=== PATIENT | female | born 1945 | race Caucasian/White ===

== ENCOUNTER → 2016-09-19 | Outpatient (CLI) | payer MEDICARE ==
--- NOTE | 2016-09-19 14:57 | REPMRS ---
Patient History The patient states she had a clinical breast exam in Patient is postmenopausal. Family history of ovarian cancer in paternal grandmother. Digital Woman Screen Mammo: September 19, 2016 - Exam #: [id number] Bilateral CC and MLO view(s) were taken. Technologist: Maida Bowen, Technologist Prior study comparison: May 11, 2013, digital bilateral screening mammo, performed at [facility] [employer] [facility]. May 29, 2011, digital bilateral screening mammo, performed at [facility] [employer] [facility]. November 13, 2009, digital bilateral screening mammo, performed at [facility]. FINDINGS: There are scattered fibroglandular densities. There has been no change in the appearance of the mammogram from the prior studies. There is a mild amount of scattered fibroglandular density which is fairly symmetric. There is no interval development of dominant mass, architectural distortion, or clustered microcalcification suggestive of malignancy. ASSESSMENT: BI-RADS/ACR category 1 mammogram. Negative. Recommendation Routine screening mammogram in 1 year (for women over age 40). This mammogram was interpreted with the aid of an FDA-approved computer-aided dectection system. Electronically Signed By: Shon Engle MD 09/19/16 [id number]
== END ==
LOC: M WHC 13:37
PROVIDERS: ATTEND Nurse Practitioner Women's Health
DX: Z12.31 Encounter for screening mammogram for malignant neoplasm of breast (principal); Z78.0 Asymptomatic menopausal state

== ENCOUNTER → 2016-12-18 | Outpatient (REF) | payer MEDICARE, OTHER ==
[2016-12-18 12:31] LABS: MEAN CORPUSCULAR HEMOGLOBIN 31.8 pg (27.0-33.0); MEAN CORPUSCULAR HGB CONC 32.8 g/dl (32.0-36.5); MEAN CORPUSCULAR VOLUME 96.9 fl (80.0-96.0); RED CELL DISTRIBUTION WIDTH 13.1 % (11.5-14.5); WHITE BLOOD COUNT 9.8 K/mm3 (4.0-10.0)
[2016-12-18 13:05] LABS: ALBUMIN 3.4 GM/DL (3.2-5.2); ALBUMIN/GLOBULIN RATIO 1.03 (1.00-1.93); ALKALINE PHOSPHATASE 91 U/L (45-117); ALT/SGPT 30 U/L (12-78); ANION GAP 7 MEQ/L (8-16); AST/SGOT 20 U/L (15-37); BILIRUBIN,TOTAL 0.8 MG/DL (0.2-1.0); BLOOD UREA NITROGEN 18 MG/DL (7-18); CARBON DIOXIDE LEVEL 29 MEQ/L (21-32); CHLORIDE LEVEL 107 MEQ/L (98-107); CHOLESTEROL LEVEL 186 MG/DL (<200); CREATININE FOR GFR 0.96 MG/DL (0.55-1.02); GLOMERULAR FILTRATION RATE > 60.0 (>39); GLUCOSE, FASTING 90 MG/DL (83-110); POTASSIUM SERUM 4.4 MEQ/L (3.5-5.1); SODIUM LEVEL 143 MEQ/L (136-145); TOTAL PROTEIN 6.7 GM/DL (6.4-8.2); TRIGLYCERIDES LEVEL 95 MG/DL (<150)
== END ==
LOC: M SFHCPLAZ 09:55
PROVIDERS: ATTEND Internal Medicine
DX: F34.1 Dysthymic disorder (principal); I10 Essential (primary) hypertension; E78.00 Pure hypercholesterolemia, unspecified; I48.0 Paroxysmal atrial fibrillation

== ENCOUNTER → 2017-04-13 | Outpatient (REF) | payer OTHER ==
[2017-04-13 21:50] LABS: CALCIUM LEVEL 9.4 MG/DL (8.8-10.2); CREATININE FOR GFR 1.3 MG/DL (0.55-1.02); MAGNESIUM LEVEL 2.3 MG/DL (1.8-2.4); POTASSIUM SERUM 4.6 MEQ/L (3.5-5.1)
== END ==
LOC: M SFHCADAM 15:01
PROVIDERS: ATTEND Internal Medicine
DX: I10 Essential (primary) hypertension (principal)

== ENCOUNTER → 2017-06-16 | Outpatient (REF) | payer OTHER ==
[2017-06-16 12:35] LABS: ALBUMIN 3.7 GM/DL (3.2-5.2); ALBUMIN/GLOBULIN RATIO 1.03 (1.00-1.93); BILIRUBIN,TOTAL 0.8 MG/DL (0.2-1.0); CALCIUM LEVEL 9.3 MG/DL (8.8-10.2); CREATININE FOR GFR 0.99 MG/DL (0.55-1.02); GLOMERULAR FILTRATION RATE 58.9 (>39); POTASSIUM SERUM 4.4 MEQ/L (3.5-5.1); TOTAL PROTEIN 7.3 GM/DL (6.4-8.2)
== END ==
LOC: M SFHCPLAZ 09:40
PROVIDERS: ATTEND Internal Medicine
DX: I10 Essential (primary) hypertension (principal); E78.00 Pure hypercholesterolemia, unspecified

== ENCOUNTER 2017-08-13 08:28 | Day surgery (SDC) | payer OTHER ==
[2017-08-13] MEDS: NS 1,000 ML IV (08:51)
[2017-08-13] MEDS ORDERED: LIDOCAINE 2% INJ 100 MG/5 ML SDV (FOR ANES.) As Ordered (10:12)
[2017-08-13] MEDS ORDERED: PROPOFOL 500 MG/50 ML VIAL As Ordered (10:12)
== END 2017-08-13 10:50 | disposition home or self-care (01) ==
LOC: M OPP 08:28
DX: Z12.11 Encounter for screening for malignant neoplasm of colon (principal); K64.8 Other hemorrhoids; R10.13 Epigastric pain; R12 Heartburn; I10 Essential (primary) hypertension; I25.10 Atherosclerotic heart disease of native coronary artery without angina pectoris; Z95.5 Presence of coronary angioplasty implant and graft; E78.5 Hyperlipidemia, unspecified; K21.9 Gastro-esophageal reflux disease without esophagitis; R06.02 Shortness of breath; F17.200 Nicotine dependence, unspecified, uncomplicated; Z79.82 Long term (current) use of aspirin; Z79.899 Other long term (current) drug therapy; Z80.41 Family history of malignant neoplasm of ovary; Z91.030 Bee allergy status
CPT/HCPCS: G0121

== ENCOUNTER → 2017-12-23 | Outpatient (REF) | payer OTHER ==
[2017-12-23 11:56] LABS: HEMATOCRIT 44.8 % (36.0-47.0); HEMOGLOBIN 14.7 g/dl (12.0-15.5); MEAN CORPUSCULAR HEMOGLOBIN 30.9 pg (27.0-33.0); MEAN CORPUSCULAR HGB CONC 32.8 g/dl (32.0-36.5); MEAN CORPUSCULAR VOLUME 94.3 fl (80.0-96.0); PLATELET COUNT, AUTOMATED 350 10^3/uL (150-450); RED BLOOD COUNT 4.75 10^6/uL (4.00-5.40); WHITE BLOOD COUNT 10.1 10^3/uL (4.0-10.0)
[2017-12-23 12:28] LABS: ALBUMIN 3.8 GM/DL (3.2-5.2); ALBUMIN/GLOBULIN RATIO 1.06 (1.00-1.93); ALKALINE PHOSPHATASE 101 U/L (45-117); ALT/SGPT 30 U/L (12-78); ANION GAP 7 MEQ/L (8-16); AST/SGOT 25 U/L (7-37); BILIRUBIN,TOTAL 0.7 MG/DL (0.2-1.0); BLOOD UREA NITROGEN 19 MG/DL (7-18); CALCIUM LEVEL 9.2 MG/DL (8.8-10.2); CARBON DIOXIDE LEVEL 26 MEQ/L (21-32); CHLORIDE LEVEL 109 MEQ/L (98-107); CHOLESTEROL LEVEL 117 MG/DL (<200); CHOLESTEROL RISK RATIO 2.489 (<5); CREATININE FOR GFR 0.97 MG/DL (0.55-1.30); GLOMERULAR FILTRATION RATE > 60.0 (>39); GLUCOSE, FASTING 97 MG/DL (70-100); HDL CHOLESTEROL 47 MG/DL (>40); LDL CHOLESTEROL 51.6 MG/DL (<100); MAGNESIUM LEVEL 2.4 MG/DL (1.8-2.4); NON-HDL-C 70 MG/DL; POTASSIUM SERUM 4.5 MEQ/L (3.5-5.1); SODIUM LEVEL 142 MEQ/L (136-145); TOTAL PROTEIN 7.4 GM/DL (6.4-8.2); TRIGLYCERIDES LEVEL 92 MG/DL (<150)
== END ==
LOC: M SFHCPLAZ 07:58
DX: F34.1 Dysthymic disorder (principal); I10 Essential (primary) hypertension; E78.00 Pure hypercholesterolemia, unspecified
CPT/HCPCS: 83735

== ENCOUNTER 2018-04-07 03:09 | Emergency (ER) | payer OTHER ==
[2018-04-07 03:44] LABS: BASO # 0.1 10^3/uL (0.0-0.2); BASO % 0.8 % (0.0-1.0); CALCIUM OXALATE CRYSTALS RFX LARGE; EOS # 0.5 10^3/uL (0.0-0.50); EOS % 3.1 % (0.0-3.0); HEMATOCRIT 44.2 % (36.0-47.0); HEMOGLOBIN 14.7 g/dl (12.0-15.5); IMMATURE GRANULOCYTE % 0.4 % (0-3.0); KETONE, URINE AUTO RFX NEGATIVE (NEGATIVE); LYMPH % 12.9 % (24.0-44.0); MEAN CORPUSCULAR HGB CONC 33.3 g/dl (32.0-36.5); MEAN CORPUSCULAR VOLUME 96.3 fl (80.0-96.0); MONO # 1.1 10^3/uL (0.0-0.8); MONO % 6.9 % (0.0-5.0); MUCUS, URINE RFX SMALL (NEGATIVE); NEUTROPHILS % 75.9 % (36.0-66.0); NITRITE, URINE AUTO RFX NEGATIVE (NEGATIVE); PLATELET COUNT, AUTOMATED 358 10^3/uL (150-450); RBC, URINE AUTO RFX 3 /HPF (0-3); RED BLOOD COUNT 4.59 10^6/uL (4.00-5.40); RED CELL DISTRIBUTION WIDTH 13.7 % (11.5-14.5); SPECIFIC GRAVITY UR AUTO RFX 1.016 (1.002-1.035); SQUAM EPITHELIAL CELL UR AURFX 3 /HPF (0-6); WHITE BLOOD COUNT 15.8 10^3/uL (4.0-10.0)
[2018-04-07 03:50] LABS: LEUKOCYTE ESTERASE UR AUTO RFX TRACE (NEGATIVE); WBC, URINE AUTO RFX 11 /HPF (0-3)
[2018-04-07] MEDS: ONDANSETRON 4MG/2ML VIAL (J2405) IV (03:54)
[2018-04-07] MEDS: MORPHINE 4 MG/ML 1ML VIAL/SYRINGE (J2270) IV (03:54)
[2018-04-07 04:07] LABS: ALBUMIN 3.6 GM/DL (3.2-5.2); ALBUMIN/GLOBULIN RATIO 0.97 (1.00-1.93); ALKALINE PHOSPHATASE 393 U/L (45-117); ALT/SGPT 67 U/L (12-78); ANION GAP 12 MEQ/L (8-16); AST/SGOT 77 U/L (7-37); BILIRUBIN,DIRECT 0.6 MG/DL (0.0-0.2); BLOOD UREA NITROGEN 19 MG/DL (7-18); CALCIUM LEVEL 9.2 MG/DL (8.8-10.2); CARBON DIOXIDE LEVEL 21 MEQ/L (21-32); CHLORIDE LEVEL 109 MEQ/L (98-107); GLOMERULAR FILTRATION RATE > 60.0 (>39); GLUCOSE, FASTING 168 MG/DL (70-100); LIPASE 79 U/L (73-393); POTASSIUM SERUM 4.2 MEQ/L (3.5-5.1); SODIUM LEVEL 142 MEQ/L (136-145); TOTAL PROTEIN 7.3 GM/DL (6.4-8.2)
[2018-04-07] MEDS: KETOROLAC 30 MG/ML VIAL (J1885) IV (05:09)
[2018-04-07] MEDS ORDERED: ISOVUE-370 76% 100ML VIAL (Q9967) As Ordered (05:23)
== END 2018-04-07 07:42 | disposition home or self-care (01) ==
LOC: M ED 03:09
DX: N20.1 Calculus of ureter (principal); I10 Essential (primary) hypertension; I25.10 Atherosclerotic heart disease of native coronary artery without angina pectoris; E78.5 Hyperlipidemia, unspecified; Z95.5 Presence of coronary angioplasty implant and graft; Z79.899 Other long term (current) drug therapy; Z79.82 Long term (current) use of aspirin; Z88.8 Allergy status to other drugs, medicaments and biological substances; Z91.030 Bee allergy status; F17.210 Nicotine dependence, cigarettes, uncomplicated
CPT/HCPCS: J2270

== ENCOUNTER → 2018-04-08 | Outpatient (REF) | payer OTHER ==
[2018-04-16 14:19] LABS: Ca Ox Monohydrate 93 % (.); Size 4x4x3 mm (.)
== END ==
LOC: M SMT 17:09
DX: N20.0 Calculus of kidney (principal)
CPT/HCPCS: 82360

== ENCOUNTER → 2018-04-09 | Outpatient (REF) | payer OTHER ==
[2018-04-09 15:01] LABS: HEMATOCRIT 42.5 % (36.0-47.0); HEMOGLOBIN 13.8 g/dl (12.0-15.5); MEAN CORPUSCULAR HGB CONC 32.5 g/dl (32.0-36.5); MEAN CORPUSCULAR VOLUME 98.6 fl (80.0-96.0); PLATELET COUNT, AUTOMATED 343 10^3/uL (150-450); RED BLOOD COUNT 4.31 10^6/uL (4.00-5.40); RED CELL DISTRIBUTION WIDTH 13.7 % (11.5-14.5); WHITE BLOOD COUNT 10.4 10^3/uL (4.0-10.0)
[2018-04-09 15:11] LABS: INR 1.09; PROTHROMBIN TIME 14.2 SECONDS (12.1-14.4)
[2018-04-09 15:12] LABS: PARTIAL THROMBOPLASTIN TIME 33.8 SECONDS (25.4-37.6)
== END ==
LOC: M LABSMT 13:36 → M LABDRWAD 13:41
DX: Z01.818 Encounter for other preprocedural examination (principal); N20.0 Calculus of kidney

== ENCOUNTER → 2018-04-09 | Outpatient (CLI) | payer OTHER | LOC: M ADAMS 13:36 | DX: Z01.818 Encounter for other preprocedural examination (principal); N20.0 Calculus of kidney | CPT/HCPCS: 85610 ==

== ENCOUNTER 2018-04-15 06:56 | Day surgery (SDC) | payer OTHER ==
[2018-04-15] MEDS ORDERED: fentaNYL 100 MCG/2 ML INJECTION (J3010) As Ordered ×2 (09:41→11:42)
[2018-04-15] MEDS ORDERED: MIDAZOLAM INJ 2 MG/2 ML VIAL (J2250) As Ordered (09:41)
[2018-04-15] MEDS ORDERED: ONDANSETRON 4MG/2ML VIAL (J2405) As Ordered (09:43)
[2018-04-15] MEDS ORDERED: PROPOFOL 200 MG/20 ML VIAL As Ordered (09:43)
[2018-04-15] MEDS ORDERED: LIDOCAINE 2% INJ 100 MG/5 ML SDV (FOR ANES.) As Ordered (09:43)
[2018-04-15] MEDS ORDERED: dexameTHASONE 4 MG/ML 1ML VIAL (J1100) As Ordered (09:43)
[2018-04-15] MEDS: CONRAY-60 60% 50ML VIAL (Q9961) As Ordered (10:14)
[2018-04-15] MEDS ORDERED: KETOROLAC 60 MG/2 ML VIAL (J1885) As Ordered (10:27)
[2018-04-15] MEDS ORDERED: PERCOCET 5MG/325MG TAB As Ordered (11:42)
[2018-04-15] MEDS: fentaNYL 100 MCG/2 ML INJECTION (J3010) IV ×2 (11:44→11:51)
[2018-04-15] MEDS: PERCOCET 5MG/325MG TAB PO ×2 (11:44→12:16)
[2018-04-15] MEDS ORDERED: LR 1,000 ML IV (11:45)
[2018-04-15] MEDS: oxyBUTYnin 5 MG TAB PO (11:50)
[2018-04-15] MEDS ORDERED: PERCOCET 5MG/325MG TAB PO ×2 (12:00)
[2018-04-15] MEDS: ONDANSETRON 4MG/2ML VIAL (J2405) IV (12:44)
== END 2018-04-15 13:50 | disposition home or self-care (01) ==
LOC: M SDC 06:56
DX: N20.0 Calculus of kidney (principal); I48.91 Unspecified atrial fibrillation; I25.10 Atherosclerotic heart disease of native coronary artery without angina pectoris; I50.9 Heart failure, unspecified; I11.0 Hypertensive heart disease with heart failure; E78.00 Pure hypercholesterolemia, unspecified; Z88.8 Allergy status to other drugs, medicaments and biological substances; Z91.030 Bee allergy status; Z79.899 Other long term (current) drug therapy; Z78.0 Asymptomatic menopausal state; Z72.0 Tobacco use; Z95.5 Presence of coronary angioplasty implant and graft
CPT/HCPCS: 52356

== ENCOUNTER 2018-05-05 20:04 | Emergency (ER) | payer OTHER ==
[2018-05-05 20:28] LABS: BASO # 0.1 10^3/uL (0.0-0.2); BASO % 1.2 % (0.0-1.0); EOS # 0.9 10^3/uL (0.0-0.50); EOS % 7.7 % (0.0-3.0); HEMATOCRIT 47.4 % (36.0-47.0); IMMATURE GRANULOCYTE % 0.2 % (0-3.0); MEAN CORPUSCULAR HEMOGLOBIN 32.6 pg (27.0-33.0); MEAN CORPUSCULAR HGB CONC 33.8 g/dl (32.0-36.5); MEAN CORPUSCULAR VOLUME 96.5 fl (80.0-96.0); MONO # 0.9 10^3/uL (0.0-0.8); MONO % 7.6 % (0.0-5.0); NEUTROPHILS # 6.6 10^3/uL (1.8-7.7); NEUTROPHILS % 57.3 % (36.0-66.0); PLATELET COUNT, AUTOMATED 358 10^3/uL (150-450); RED BLOOD COUNT 4.91 10^6/uL (4.00-5.40); RED CELL DISTRIBUTION WIDTH 12.8 % (11.5-14.5); WHITE BLOOD COUNT 11.6 10^3/uL (4.0-10.0)
[2018-05-05 20:45] LABS: ANION GAP 6 MEQ/L (8-16); BLOOD UREA NITROGEN 23 MG/DL (7-18); CALCIUM LEVEL 8.9 MG/DL (8.8-10.2); CARBON DIOXIDE LEVEL 29 MEQ/L (21-32); CHLORIDE LEVEL 105 MEQ/L (98-107); CREATININE FOR GFR 1.48 MG/DL (0.55-1.30); GLOMERULAR FILTRATION RATE 36.9 (>39); GLUCOSE, FASTING 109 MG/DL (70-100); POTASSIUM SERUM 3.8 MEQ/L (3.5-5.1); SODIUM LEVEL 140 MEQ/L (136-145)
[2018-05-05] MEDS: NORCO, ANEXSIA 5/325MG TABLET (HYDROcodone/ACETAMINOPHEN) PO ×2 (21:11)
[2018-05-05 21:12] LABS: AMORPHOUS SEDIMENT RFX SMALL (NEGATIVE); KETONE, URINE AUTO RFX NEGATIVE (NEGATIVE); MUCUS, URINE RFX SMALL (NEGATIVE); NITRITE, URINE AUTO RFX NEGATIVE (NEGATIVE); RBC, URINE AUTO RFX TNTC /HPF (0-3); SPECIFIC GRAVITY UR AUTO RFX 1.024 (1.002-1.035); SQUAM EPITHELIAL CELL UR AURFX 3 /HPF (0-6)
[2018-05-05 21:23] LABS: LEUKOCYTE ESTERASE UR AUTO RFX TRACE (NEGATIVE); WBC, URINE AUTO RFX 102 /HPF (0-3)
[2018-05-06] MEDS: NORCO 5/325MG TABLET (BULK FOR ED) PO ×2 (00:11)
[2018-05-06] MEDS: CEPHALEXIN 500 MG CAP PO ×2 (00:11)
== END 2018-05-06 00:25 | disposition home or self-care (01) ==
LOC: M ED 05-06 00:25
DX: N39.0 Urinary tract infection, site not specified (principal); I10 Essential (primary) hypertension; I25.10 Atherosclerotic heart disease of native coronary artery without angina pectoris
CPT/HCPCS: 76775

== ENCOUNTER → 2018-06-08 | Outpatient (REF) | payer OTHER ==
[2018-06-08 16:09] LABS: APPEARANCE, URINE CLOUDY (CLEAR); BACTERIA, URINE AUTO NEGATIVE (NEGATIVE); BILIRUBIN, URINE AUTO NEGATIVE (NEGATIVE); BLOOD, URINE BLOOD 3+ (NEGATIVE); CALCIUM OXALATE CRYSTALS SMALL; COLOR, URINE AMBER (YELLOW); GLUCOSE, URINE (UA) AUTO NEGATIVE (NEGATIVE); KETONE, URINE AUTO TRACE mg/dL (NEGATIVE); LEUKOCYTE ESTERASE, URINE AUTO TRACE (NEGATIVE); MUCUS, URINE SMALL (NEGATIVE); NITRITE, URINE AUTO NEGATIVE (NEGATIVE); PROTEIN, URINE AUTO 1+ mg/dL (NEGATIVE); RBC, URINE AUTO TNTC /HPF (0-3); SPECIFIC GRAVITY URINE AUTO 1.024 (1.002-1.035); SQUAMOUS EPITHELIAL CELL UR AU 2 /HPF (0-6); WBC, URINE AUTO 26 /HPF (0-3); YEAST LIKE CELL URINE AUTO MODERATE
== END ==
LOC: M LABSMT 12:46
DX: R10.9 Unspecified abdominal pain (principal)
CPT/HCPCS: 81001

== ENCOUNTER → 2018-06-30 | Outpatient (CLI) | payer OTHER | LOC: M RAD 14:16 | DX: N20.0 Calculus of kidney (principal); R10.9 Unspecified abdominal pain | CPT/HCPCS: 74176 ==

== ENCOUNTER → 2018-07-01 | Outpatient (REF) | payer OTHER ==
[2018-07-01 12:12] LABS: ALBUMIN 3.4 GM/DL (3.2-5.2); ALBUMIN/GLOBULIN RATIO 0.97 (1.00-1.93); ALKALINE PHOSPHATASE 184 U/L (45-117); ALT/SGPT 35 U/L (12-78); ANION GAP 7 MEQ/L (8-16); AST/SGOT 34 U/L (7-37); BILIRUBIN,TOTAL 0.8 MG/DL (0.2-1.0); BLOOD UREA NITROGEN 20 MG/DL (7-18); CARBON DIOXIDE LEVEL 27 MEQ/L (21-32); CHLORIDE LEVEL 107 MEQ/L (98-107); CREATININE FOR GFR 0.94 MG/DL (0.55-1.30); GLOMERULAR FILTRATION RATE > 60.0 (>39); GLUCOSE, FASTING 89 MG/DL (70-100); MAGNESIUM LEVEL 2.2 MG/DL (1.8-2.4); POTASSIUM SERUM 4.3 MEQ/L (3.5-5.1); SODIUM LEVEL 141 MEQ/L (136-145); TOTAL PROTEIN 6.9 GM/DL (6.4-8.2)
[2018-07-01 12:36] LABS: ESTIMATED AVERAGE GLUCOSE 128 MG/DL (60-110); HEMOGLOBIN A1c 6.1 %
[2018-07-01 12:41] LABS: MALB URINE SIEMENS 73.6 MG/L
== END ==
LOC: M SFHCPLAZ 08:45
DX: I10 Essential (primary) hypertension (principal); E78.00 Pure hypercholesterolemia, unspecified; R73.01 Impaired fasting glucose
CPT/HCPCS: 83735

== ENCOUNTER → 2018-08-27 | Outpatient (CLI) | payer MEDICARE, OTHER ==
[~2018-08-27] MED LIST: AMLO5TAB6 PO; ASPI1TAB PO; CIPR500T3; CLOB0.0526 TOP; ESTR62CR PV; FLOM0.4C39 PO; KEFL500C17 PO; MELO15TA28; MELO15TA28 PO; METO1TAB32; NORCOTAB PO; PANT40TA3; PERC5TAB12 PO; PROT1TAB2 PO; SIMV40TA2; SIMV40TA2 PO; TOPR25TA13 PO; VENTAER INH; ZOFR4TAB14 PO; ZOFR4TAB16 PO
--- NOTE | 2018-08-27 18:42 | REP ---
SUPINE ABDOMEN: 08/27/2018. Comparison: CT 06/30/2018. Clinical history: Kidney stone. Findings: Nephrolithiasis again noted on the right side, up to 8 mm stone present and a possible 4 mm stone inferior to it in that right upper quadrant. I do not see any definite stones along the course of the right ureter. There are some pelvic phleboliths and vascular calcifications aorta and branches. Right upper quadrant clips from prior cholecystectomy are noted. There are degenerative disc and facet arthritic changes in the lumbar spine. Gas pattern nonspecific. Impression: 1. Nephrolithiasis right kidney as described. Electronically Signed by Jac Maier MD 08/28/2018 12:35 P
[2018-08-27 18:58] LABS: APPEARANCE, URINE CLOUDY (CLEAR); BACTERIA, URINE AUTO 1+ (NEGATIVE); BILIRUBIN, URINE AUTO NEGATIVE (NEGATIVE); BLOOD, URINE BLOOD 3+ (NEGATIVE); CALCIUM OXALATE CRYSTALS LARGE; COLOR, URINE YELLOW (YELLOW); GLUCOSE, URINE (UA) AUTO NEGATIVE (NEGATIVE); KETONE, URINE AUTO NEGATIVE (NEGATIVE); LEUKOCYTE ESTERASE, URINE AUTO 3+ (NEGATIVE); MUCUS, URINE SMALL (NEGATIVE); NITRITE, URINE AUTO NEGATIVE (NEGATIVE); PROTEIN, URINE AUTO 2+ mg/dL (NEGATIVE); RBC, URINE AUTO TNTC /HPF (0-3); SPECIFIC GRAVITY URINE AUTO 1.019 (1.002-1.035); SQUAMOUS EPITHELIAL CELL UR AU 0 /HPF (0-6); WBC, URINE AUTO TNTC /HPF (0-3)
== END ==
LOC: M RAD 16:24
PROVIDERS: ATTEND Nurse Practitioner Family
DX: N32.89 Other specified disorders of bladder (principal); N20.0 Calculus of kidney
CPT/HCPCS: 51798; 74018; 81001; G0463

== ENCOUNTER → 2018-09-15 | Outpatient (CLI) | payer MEDICARE ==
[2018-09-15 18:21] LABS: BLOOD UREA NITROGEN 18 MG/DL (7-18); CALCIUM LEVEL 9.9 MG/DL (8.8-10.2); CARBON DIOXIDE LEVEL 30 MEQ/L (21-32); CHLORIDE LEVEL 104 MEQ/L (98-107); CREATININE FOR GFR 0.97 MG/DL (0.55-1.30); GLOMERULAR FILTRATION RATE > 60.0 (>39); GLUCOSE, FASTING 116 MG/DL (70-100); POTASSIUM SERUM 4.7 MEQ/L (3.5-5.1); SODIUM LEVEL 140 MEQ/L (136-145)
[2018-09-15 18:26] LABS: HEMATOCRIT 45.7 % (36.0-47.0); HEMOGLOBIN 15.1 g/dl (12.0-15.5); MEAN CORPUSCULAR HEMOGLOBIN 31.4 pg (27.0-33.0); PLATELET COUNT, AUTOMATED 390 10^3/uL (150-450); RED BLOOD COUNT 4.81 10^6/uL (4.00-5.40); WHITE BLOOD COUNT 10.7 10^3/uL (4.0-10.0)
[2018-09-15 18:29] LABS: INR 1.11; PROTHROMBIN TIME 14.5 SECONDS (12.1-14.4)
[2018-09-15 18:30] LABS: PARTIAL THROMBOPLASTIN TIME 35.9 SECONDS (25.4-37.6)
== END ==
LOC: M SMT 14:08
PROVIDERS: ATTEND Nurse Practitioner Family
DX: Z01.818 Encounter for other preprocedural examination (principal); N20.0 Calculus of kidney

== ENCOUNTER → 2018-09-21 | Outpatient (REF) | payer MEDICARE ==
[2018-09-21 18:34] LABS: APPEARANCE, URINE CLOUDY (CLEAR); BACTERIA, URINE AUTO NEGATIVE (NEGATIVE); BILIRUBIN, URINE AUTO NEGATIVE (NEGATIVE); BLOOD, URINE BLOOD 2+ (NEGATIVE); COLOR, URINE YELLOW (YELLOW); GLUCOSE, URINE (UA) AUTO NEGATIVE (NEGATIVE); KETONE, URINE AUTO NEGATIVE (NEGATIVE); LEUKOCYTE ESTERASE, URINE AUTO 3+ (NEGATIVE); MUCUS, URINE SMALL (NEGATIVE); NITRITE, URINE AUTO NEGATIVE (NEGATIVE); PROTEIN, URINE AUTO 2+ mg/dL (NEGATIVE); RBC, URINE AUTO 92 /HPF (0-3); SPECIFIC GRAVITY URINE AUTO 1.023 (1.002-1.035); SQUAMOUS EPITHELIAL CELL UR AU 1 /HPF (0-6); UROBILINOGEN, URINE AUTO 0.2 mg/dL (0.0-2.0); WBC, URINE AUTO TNTC /HPF (0-3)
== END ==
LOC: M SMT 17:30
PROVIDERS: ATTEND Nurse Practitioner Family
DX: R30.0 Dysuria (principal)

== ENCOUNTER → 2018-09-22 | Outpatient (REF) | payer MEDICARE ==
[2018-09-22 19:30] LABS: APPEARANCE, URINE CLOUDY (CLEAR); BACTERIA, URINE AUTO 3+ (NEGATIVE); BILIRUBIN, URINE AUTO NEGATIVE (NEGATIVE); BLOOD, URINE BLOOD 2+ (NEGATIVE); COLOR, URINE YELLOW (YELLOW); GLUCOSE, URINE (UA) AUTO NEGATIVE (NEGATIVE); KETONE, URINE AUTO NEGATIVE (NEGATIVE); LEUKOCYTE ESTERASE, URINE AUTO 3+ (NEGATIVE); MUCUS, URINE SMALL (NEGATIVE); NITRITE, URINE AUTO NEGATIVE (NEGATIVE); PROTEIN, URINE AUTO 2+ mg/dL (NEGATIVE); RBC, URINE AUTO 31 /HPF (0-3); SPECIFIC GRAVITY URINE AUTO 1.017 (1.002-1.035); SQUAMOUS EPITHELIAL CELL UR AU 0 /HPF (0-6); UROBILINOGEN, URINE AUTO 0.2 mg/dL (0.0-2.0); WBC, URINE AUTO TNTC /HPF (0-3)
== END ==
LOC: M SMT 17:07
PROVIDERS: ATTEND Nurse Practitioner Family
DX: N39.0 Urinary tract infection, site not specified (principal)

== ENCOUNTER 2018-09-30 06:41 | Day surgery (SDC) | payer MEDICARE ==
[~2018-09-30] VITALS: Ht 162.6 cm; Wt 80.7 kg
[2018-09-30] MEDS ORDERED: LR 1,000 ML IV ONE (07:00)
[2018-09-30] MEDS ORDERED: PROPOFOL 500 MG/50 ML VIAL As Ordered ONE (07:17)
[2018-09-30] MEDS ORDERED: LIDOCAINE 2% INJ 100 MG/5 ML SDV (FOR ANES.) As Ordered ONE (07:17)
--- NOTE | 2018-09-30 08:42 | REP ---
Supine abdomen single AP view: Comparisons are the supine abdomen dated 08/27/[address] dated 06/30/2018. There are two calcifications adjacent or a superimposed over the lower pole left kidney and a larger measuring 9 mm and the smaller 4 mm, similar to the comparison studies. There are calcified granulomas projected inferiorly over the right lobe of the liver, unchanged. There are surgical clips in the gallbladder fossa, unchanged. The bowel gas pattern is normal. There is multilevel degenerative disc disease and scoliosis in the lumbar spine, unchanged. There is osteoarthritis of the right hip, unchanged. Electronically Signed by Rufus Rhodes MD 09/30/2018 08:34 A
[2018-09-30 09:35] VITALS: BP 117/59
--- NOTE | 2018-09-30 14:17 | RO ---
DATE OF PROCEDURE: 09/30/2018 PREPROCEDURE DIAGNOSIS: Right kidney stones. POSTPROCEDURE DIAGNOSIS: Right kidney stones. PROCEDURE: Right extracorporal shockwave lithotripsy. SURGEON: Dr. Herbie Moreno. RELIGION PROFESSOR: None. ANESTHESIA: Monitored anesthesia care (MAC). INDICATION: This is a 73-year-old female who was recently found to have a few nonobstructing right kidney stones measuring up to 8 mm in size. She was brought to the operating room today for the above listed procedure. DESCRIPTION OF PROCEDURE: The patient was brought to the operating room and MAC anesthesia was administered. Prophylactic antibiotics were infused. She was then placed in the supine position in preparation for right-sided extracorporal shockwave lithotripsy. Fluoroscopy was utilized to monitor stone position and fragmentation throughout the procedure. Shockwave was then delivered to the right-sided kidney stone ungated. There were no arrhythmias. The stones did appear to fragment. After 2500 shocks, the procedure was concluded. The patient was then awakened from anesthesia, transported to the recovery room in stable condition. ESTIMATED BLOOD LOSS: 0 mL. COMPLICATIONS: None. SPECIMENS: None. PLAN: The patient will followup in the clinic in a few weeks with imaging prior to assess for residual stone burden. [facility]
== END 2018-09-30 09:48 | disposition home or self-care (01) ==
LOC: M SDC 06:41
PROVIDERS: ATTEND Urology
DX: N20.0 Calculus of kidney (principal); I10 Essential (primary) hypertension; I48.91 Unspecified atrial fibrillation; I25.10 Atherosclerotic heart disease of native coronary artery without angina pectoris; Z98.61 Coronary angioplasty status; I50.9 Heart failure, unspecified; Z79.82 Long term (current) use of aspirin; Z79.899 Other long term (current) drug therapy; Z91.030 Bee allergy status; Z87.891 Personal history of nicotine dependence; Z79.51 Long term (current) use of inhaled steroids

== ENCOUNTER → 2018-10-21 | Outpatient (CLI) | payer MEDICARE ==
--- NOTE | 2018-10-21 09:58 | REP ---
KUB, ONE VIEW: HISTORY: Kidney stone. COMPARISON: 09/30/2018. A small amount of air is present in the intestine. There are no air fluids or dilated loops of intestine. There is no pneumoperitoneum. Calcifications are present overlying the right kidney consistent with nephrolithiasis. IMPRESSION: 1. Nonspecific bowel gas. 2. There are calcifications overlying the right kidney consistent with nephrolithiasis. Electronically Signed by Alexander Agee MD 10/21/2018 10:18 A
== END ==
LOC: M SMT 08:09
PROVIDERS: ATTEND Nurse Practitioner Family
DX: N20.0 Calculus of kidney (principal)

== ENCOUNTER → 2019-01-13 | Outpatient (REF) | payer MEDICARE ==
[~2019-01-13] MED LIST changes: -ASPI1TAB PO; +ASPI81TA26 PO; +HYDR-3715 PO; -NORCOTAB PO; +TOPR25TA PO; -TOPR25TA13 PO
[2019-01-13 09:49] LABS: HEMATOCRIT 42.5 % (36.0-47.0); MEAN CORPUSCULAR HEMOGLOBIN 31.3 pg (27.0-33.0); MEAN CORPUSCULAR HGB CONC 32.9 g/dl (32.0-36.5); MEAN CORPUSCULAR VOLUME 95.1 fl (80.0-96.0); PLATELET COUNT, AUTOMATED 345 10^3/uL (150-450); RED BLOOD COUNT 4.47 10^6/uL (4.00-5.40); WHITE BLOOD COUNT 10.3 10^3/uL (4.0-10.0)
[2019-01-13 09:57] LABS: ALBUMIN 3.4 GM/DL (3.2-5.2); BILIRUBIN,TOTAL 0.7 MG/DL (0.2-1.0); CALCIUM LEVEL 9.1 MG/DL (8.8-10.2); CHOLESTEROL RISK RATIO 2.44 (<5); CREATININE FOR GFR 1.05 MG/DL (0.55-1.30); GLOMERULAR FILTRATION RATE 54.8 (>39); MAGNESIUM LEVEL 2.6 MG/DL (1.8-2.4); POTASSIUM SERUM 4.4 MEQ/L (3.5-5.1)
[2019-01-13 10:24] LABS: MALB URINE SIEMENS 49.1 MG/L; MAU/CREAT RATIO 44.2 MCG/MG (0.0-30.0)
== END ==
LOC: M SFHCPLAZ 07:59
PROVIDERS: ATTEND Internal Medicine
DX: N20.0 Calculus of kidney (principal); Z01.818 Encounter for other preprocedural examination; I10 Essential (primary) hypertension; E78.00 Pure hypercholesterolemia, unspecified; R73.01 Impaired fasting glucose

== ENCOUNTER → 2019-03-11 | Outpatient (REF) | payer MEDICARE | LOC: M SFHCWAGY 15:59 | PROVIDERS: ATTEND Nurse Practitioner Family | DX: R30.9 Painful micturition, unspecified (principal) | CPT/HCPCS: 81002; 87086; G0463 ==

== ENCOUNTER → 2019-03-15 | Outpatient (CLI) | payer MEDICARE ==
--- NOTE | 2019-03-16 12:00 | REP ---
Clinical: Pain with urination Technique: Real time rowe scale ultrasound examination using curved array transducer. Findings: Bladder is essentially normal in appearance without significant wall thickening or obvious mass lesion. Prevoid bladder measures 5.6 x 5.7 x 7.7 cm (130 ml). Postvoid bladder measures 2.9 x 4.6 x 5.2 cm (36 ml). Postvoid residual equals 27%. Impression: No obvious abnormality by sonographic evaluation.
== END ==
LOC: M WHC 13:25
PROVIDERS: ATTEND Nurse Practitioner Family
DX: R30.9 Painful micturition, unspecified (principal)

== ENCOUNTER → 2019-03-25 | Outpatient (CLI) | payer MEDICARE ==
[~2019-03-25] MED LIST changes: -SIMV40TA2; -SIMV40TA2 PO; +SIMV40TA20; +SIMV40TA20 PO
--- NOTE | 2019-03-25 16:12 | REP ---
KUB ABDOMEN AND PELVIS: Two KUB films of abdomen and pelvis performed. Bowel gas pattern is normal with no obstruction. Fecal material in the colon limits evaluation for renal calculi. Two calcific densities project in the right upper quadrant at the lower margin of the liver, unchanged since the prior study of 10/21/2018. There are adjacent metallic clips in the gallbladder fossa from prior cholecystectomy. Surgical sutures are seen in the region of the stomach. Vascular calcifications are seen in the pelvis. There is a phlebolith in the left pelvis. There are moderate degenerative changes of the spine and hips. IMPRESSION: No definite change compared to prior study of 10/21/2018. Electronically Signed by Rufus Johnson MD 03/25/2019 04:38 P
[2019-03-25 19:03] LABS: APPEARANCE, URINE CLOUDY (CLEAR); BACTERIA, URINE AUTO NEGATIVE (NEGATIVE); BILIRUBIN, URINE AUTO NEGATIVE (NEGATIVE); BLOOD, URINE BLOOD 3+ (NEGATIVE); COLOR, URINE YELLOW (YELLOW); GLUCOSE, URINE (UA) AUTO NEGATIVE (NEGATIVE); KETONE, URINE AUTO NEGATIVE (NEGATIVE); LEUKOCYTE ESTERASE, URINE AUTO 3+ (NEGATIVE); NITRITE, URINE AUTO NEGATIVE (NEGATIVE); PROTEIN, URINE AUTO 2+ mg/dL (NEGATIVE); RBC, URINE AUTO 87 /HPF (0-3); SPECIFIC GRAVITY URINE AUTO 1.016 (1.002-1.035); SQUAMOUS EPITHELIAL CELL UR AU 1 /HPF (0-6); UROBILINOGEN, URINE AUTO 0.2 mg/dL (0.0-2.0); WBC, URINE AUTO TNTC /HPF (0-3)
== END ==
LOC: M SMT 15:16
PROVIDERS: ATTEND Nurse Practitioner Family
DX: R30.0 Dysuria (principal); N20.0 Calculus of kidney; I87.8 Other specified disorders of veins
CPT/HCPCS: 74018; 81001; 87086; G0463

== ENCOUNTER → 2019-04-04 | Outpatient (CLI) | payer MEDICARE ==
[~2019-04-04] MED LIST changes: +SIMV40TA2; +SIMV40TA2 PO; -SIMV40TA20; -SIMV40TA20 PO
[2019-04-04 17:52] LABS: CALCIUM LEVEL 9.6 MG/DL (8.8-10.2); CREATININE FOR GFR 1.11 MG/DL (0.55-1.30); GLOMERULAR FILTRATION RATE 51.3 (>39); POTASSIUM SERUM 4.4 MEQ/L (3.5-5.1)
== END ==
LOC: M SMT 13:56
PROVIDERS: ATTEND Nurse Practitioner Family
DX: R31.29 Other microscopic hematuria (principal)

== ENCOUNTER → 2019-04-12 | Outpatient (CLI) | payer MEDICARE ==
[~2019-04-12] MED LIST changes: +ISOVUE-370 76% 100ML VIAL (Q9967) As Ordered ONE
--- NOTE | 2019-04-13 08:44 | REP ---
Clinical: Microscopic hematuria. Technique: Axial precontrast, contrast enhanced, and delayed images of the abdomen and oozing 100 ml Isovue 370 intravenous contrast material with coronal and sagittal re-formations. Comparison: 06/30/2018. Findings: Contrast enhanced images demonstrate very subtle enhancement along the left bladder wall which is concerning for very subtle mass and requires urology consultation and cystoscopy evaluation. This represents a new finding as compared with CT dated 06/30/2018 and 04/07/2018. The kidneys demonstrate mild cortical atrophic change along with 2 mm nonobstructing right renal calculus. Small retroperitoneal lymph nodes measuring up to approximately 8 mm are nonspecific. No obvious pelvic adenopathy noted. Liver, spleen, pancreas, and bilateral adrenal glands are normal. Evidence for prior cholecystectomy. The enteric system is without obstruction or acute inflammatory process. Scattered diverticula noted without acute diverticulitis. Pelvis demonstrates prior hysterectomy. No ascites. No free air. Atherosclerotic changes of the aorta noted without aneurysm or dissection. Osseous structures demonstrate degenerative changes. Lung bases are clear. Impression: 1. Very subtle left bladder wall enhancement concerning for neoplasm. Urology consultation and cystoscopy may be warranted. 2. 2 mm nonobstructing right renal calculus and mild renal atrophy. 3. Few scattered sigmoid diverticula without acute diverticulitis. 4. Evidence of prior cholecystectomy and hysterectomy. Electronically Signed by Tim Olivia MD 04/13/2019 08:36 A
== END ==
LOC: M RAD 15:15
PROVIDERS: ATTEND Nurse Practitioner Family
DX: N20.0 Calculus of kidney (principal); K57.32 Diverticulitis of large intestine without perforation or abscess without bleeding; R31.29 Other microscopic hematuria
CPT/HCPCS: 74178; Q9967

== ENCOUNTER → 2019-05-04 | Outpatient (REF) | payer MEDICARE ==
[~2019-05-04] MED LIST changes: -ISOVUE-370 76% 100ML VIAL (Q9967) As Ordered ONE
== END ==
LOC: M SMT 16:48
PROVIDERS: ATTEND Urology
DX: R10.2 Pelvic and perineal pain (principal)
CPT/HCPCS: 81002; 87086; G0463

== ENCOUNTER → 2019-05-23 | Outpatient (REF) | payer MEDICARE | LOC: M SMT 13:15 | PROVIDERS: ATTEND Specialist | DX: R30.0 Dysuria (principal) | CPT/HCPCS: 88305; G0463 ==

== ENCOUNTER → 2019-07-27 | Outpatient (CLI) | payer MEDICARE ==
[~2019-07-27] MED LIST changes: -SIMV40TA2; -SIMV40TA2 PO; +SIMV40TA20; +SIMV40TA20 PO
[2019-07-27 13:58] LABS: APPEARANCE, URINE CLOUDY (CLEAR); BACTERIA, URINE AUTO NEGATIVE (NEGATIVE); BILIRUBIN, URINE AUTO NEGATIVE (NEGATIVE); BLOOD, URINE BLOOD 1+ (NEGATIVE); CALCIUM OXALATE CRYSTALS LARGE; COLOR, URINE YELLOW (YELLOW); GLUCOSE, URINE (UA) AUTO NEGATIVE (NEGATIVE); KETONE, URINE AUTO NEGATIVE (NEGATIVE); LEUKOCYTE ESTERASE, URINE AUTO 3+ (NEGATIVE); MUCUS, URINE SMALL (NEGATIVE); NITRITE, URINE AUTO NEGATIVE (NEGATIVE); PROTEIN, URINE AUTO 1+ mg/dL (NEGATIVE); RBC, URINE AUTO 18 /HPF (0-3); SPECIFIC GRAVITY URINE AUTO 1.018 (1.002-1.035); SQUAMOUS EPITHELIAL CELL UR AU 3 /HPF (0-6); UROBILINOGEN, URINE AUTO 0.2 mg/dL (0.0-2.0); WBC, URINE AUTO TNTC /HPF (0-3)
[2019-07-27 14:18] LABS: ALBUMIN 3.6 GM/DL (3.2-5.2); BILIRUBIN,TOTAL 0.6 MG/DL (0.2-1.0); CALCIUM LEVEL 8.9 MG/DL (8.8-10.2); CREATININE FOR GFR 1.07 MG/DL (0.55-1.30); GLOMERULAR FILTRATION RATE 53.5 (>39); MAGNESIUM LEVEL 2.3 MG/DL (1.8-2.4); POTASSIUM SERUM 5.2 MEQ/L (3.5-5.1); TOTAL PROTEIN 6.9 GM/DL (6.4-8.2)
[2019-07-27 14:41] LABS: MAU/CREAT RATIO 76.7 MCG/MG (0.0-30.0)
== END ==
LOC: M PLALAB 08:52
PROVIDERS: ATTEND Internal Medicine
DX: N20.0 Calculus of kidney (principal); I10 Essential (primary) hypertension

== ENCOUNTER → 2019-12-05 | Outpatient (CLI) | payer MEDICARE ==
--- NOTE | 2019-12-06 01:59 | REPPI ---
Clinical: Kidney stone. Technique: Single supine view of the abdomen and pelvis. Comparison: 03/25/2019. Findings: Evaluation of the urinary tract system is significantly limited by bowel gas pattern and technique. No obvious urinary tract calcifications are identified. Bowel gas pattern suggests mild/moderate fecal stasis and possible constipation without obstruction. Evidence of prior cholecystectomy. Vascular calcifications are identified. Skeletal structures demonstrate age-related degenerative changes. Impression: Limited examination for urinary tract calcifications. Electronically Signed by Tim Olivia MD 12/06/2019 01:51 A
== END ==
LOC: M PLAIMG 14:45
PROVIDERS: ATTEND Nurse Practitioner Family
DX: N20.0 Calculus of kidney (principal); Z90.49 Acquired absence of other specified parts of digestive tract
CPT/HCPCS: 74018; G0463

== ENCOUNTER → 2019-12-21 | Outpatient (CLI) | payer MEDICARE ==
--- NOTE | 2019-12-21 16:14 | REP ---
PARANASAL SINUSES: Four views of paranasal sinuses performed. Paranasal sinuses demonstrate no abnormal opacification. No air-fluid levels are seen. Adenoids are not enlarged. The nasopharyngeal airway is widely patent. IMPRESSION: No radiographic evidence of significant sinusitis. Electronically Signed by Rufus Johnson MD 12/22/2019 07:18 P
== END ==
LOC: M ADAMS 14:06
PROVIDERS: ATTEND Physician Assistant
DX: R09.82 Postnasal drip (principal); J31.0 Chronic rhinitis

== ENCOUNTER → 2020-02-09 | Outpatient (REF) | payer MEDICARE ==
[~2020-02-09] MED LIST changes: +AMLO1TAB24 PO; -AMLO5TAB6 PO; +PANT40TA29; -PANT40TA3
[2020-02-09 11:19] LABS: HEMATOCRIT 43.3 % (36.0-47.0); HEMOGLOBIN 14.1 g/dl (12.0-15.5); MEAN CORPUSCULAR HEMOGLOBIN 31.5 pg (27.0-33.0); MEAN CORPUSCULAR HGB CONC 32.6 g/dl (32.0-36.5); MEAN CORPUSCULAR VOLUME 96.7 fl (80.0-96.0); PLATELET COUNT, AUTOMATED 353 10^3/uL (150-450); RED BLOOD COUNT 4.48 10^6/uL (4.00-5.40); WHITE BLOOD COUNT 8.7 10^3/uL (4.0-10.0)
== END ==
LOC: M PLALAB 08:16
PROVIDERS: ATTEND Internal Medicine
DX: K21.9 Gastro-esophageal reflux disease without esophagitis (principal); I10 Essential (primary) hypertension; R73.01 Impaired fasting glucose; E78.00 Pure hypercholesterolemia, unspecified

== ENCOUNTER → 2020-04-12 | Outpatient (REF) | payer MEDICARE ==
[2020-04-12 13:04] LABS: HEMATOCRIT 43.7 % (36.0-47.0); MEAN CORPUSCULAR HEMOGLOBIN 31.4 pg (27.0-33.0); PLATELET COUNT, AUTOMATED 334 10^3/uL (150-450); RED BLOOD COUNT 4.46 10^6/uL (4.00-5.40); WHITE BLOOD COUNT 9.6 10^3/uL (4.0-10.0)
[2020-04-12 13:41] LABS: CALCIUM LEVEL 9.1 MG/DL (8.8-10.2); CREATININE FOR GFR 1.05 MG/DL (0.55-1.30); GLOMERULAR FILTRATION RATE 54.5 (>39); POTASSIUM SERUM 4.7 MEQ/L (3.5-5.1); THYROID STIMULATING HORMONE 1.65 uIU/ML (0.358-3.740)
== END ==
LOC: M LABDRWAD 12:19
PROVIDERS: ATTEND Nurse Practitioner Family
DX: I48.0 Paroxysmal atrial fibrillation (principal)

== ENCOUNTER → 2020-07-24 | Outpatient (REF) | payer MEDICARE ==
[2020-07-24 11:01] LABS: HEMOGLOBIN A1c 5.9 %
[2020-07-24 11:11] LABS: ALBUMIN 3.4 GM/DL (3.2-5.2); BILIRUBIN,TOTAL 0.5 MG/DL (0.2-1.0); GLOMERULAR FILTRATION RATE 57.7 (>39); POTASSIUM SERUM 5.2 MEQ/L (3.5-5.1); THYROID STIMULATING HORMONE 2.26 uIU/ML (0.358-3.740); TOTAL PROTEIN 6.6 GM/DL (6.4-8.2)
== END ==
LOC: M PLALAB 08:17
PROVIDERS: ATTEND Internal Medicine
DX: I10 Essential (primary) hypertension (principal); R73.01 Impaired fasting glucose; F34.1 Dysthymic disorder
CPT/HCPCS: 36415; 80053; 83036; 84443; G0472

== ENCOUNTER 2020-09-11 17:22 | Emergency (ER) | payer MEDICARE ==
[~2020-09-11] VITALS: Ht 165.1 cm; Wt 92.2 kg
--- OUTSIDE RECORDS SUMMARY | 2020-09-11 17:33 | CCD ---
Author Author [employer] Organization [employer] Address Unknown Phone Unavailable Care Team Providers Care Process Control Programmer Name Role Phone Randlel Terrell Unavailable PROBLEMS Type Condition ICD9-CM Code VGF15-WV Code Onset Dates Condition S tatus SNOMED Code Notes Problem Elevated fasting glucose R73.01 Active 3521834 07 Her fasting glucose was 129 in 04/2014. She has not had a HgbA1c high enough to warrant the institution of therapy so far. Her most recent fasting glucose was 104 with a HgbA1c of 5.9% in 07/2020, 114 with a hemoglobin A1c of 6% in January 2020, 99 in 07/2019, 102 with a HgbA1c of 6% in 12/2018. Urine microalbumin was negative in January 2020. Problem Gastroesophageal reflux K21.9 Active 58009372 9 I placed her on a PPI in August 2012 but she is no longer taking that and does not complain of much heartburn. She had a normal upper endoscopy in July 2017. She has a history of some right upper quadrant pain and I started her on Protonix in December 2016 but she no longer requires that. Problem Hypertension I10 Active 26112317 Blood pres sure is reasonably controlled on amlodipine. She is not on losartan apparently, since it is not on her medication list. She was taken off metoprolol in June 2018 by her sleeve setter lockstitch because of the slow heart rate. She had an RANJANA inhibitor cough in the past and had been on an ARB in the past. Because she has a history of calcium oxalate stones, I would like her to be on a thiazide and I did start chlorthalidone 12.5 mg daily and reduced her amlodipine to 2.5 mg daily as of January 2019; she is not taking chlorthalidone as of 07/2019 and 01/2020, possibly because of urinary issues.She had an echocardiogram in 03/2020. Problem Coronary artery disease I25.10 Active 93498519 She had coronary artery angioplasty with stent placement (right coronary artery) in 2001, and this was precipitated by an abnormal stress test. Her last left ventricular ejection fraction was 60% at that time. She is on aspirin, statin, and she is off beta mackenzie therapy since June 2018 due to a slow heart rate. Calcium channel mackenzie was added in February 2013. She was previously on losartan but this is not on her medication list today. She last had a stress test in June 2011 and again in 07/2017 which demonstrated a left ventricular ejection fraction of 62 %, no reversible ischemia on imaging, but some question of angina during the test. She pursues lifestyle changes in response to that. She had a cardiac catheterization in late December 2011 which demonstrated an occluded stent but well collateralized distal RCA and no intervention was necessary. She had a bout of congestive heart failure in March 2017 but not since. Problem Lichen sclerosus et atrophicus L90.0 Active 2 8613264 Problem Dysthymia F34.1 Active 56682196 Symptoms were not at all controlled when she started Elmiron in 05/2019, and this has been discontinued. She was treated with low-dose Wellbutrin SR 7425-5056 and she apparently stopped it in 2013. I started her on duloxetine for her dysthymia and arthritis as of 07/2019. Dose increased to 60 mg daily in 07/2020. 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 An event monitor did not demonstrate recurrence. She has increasing brief recurrences symptomatically. By examination she is in sinus rhythm today. She is followed by cardiology. She is on Eliquis and has metoprolol available to take if she has palpitations. Last echocardiogram was in 03/2020 and LVEF was normal, with aortic sclerosis and mild AI. 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 This was last checked in January 2020. Problem Cigarette smoker F17.210 Active 42502521 She salas s a long history of smoking. She has quit a number of times in the past. She was counseled regarding smoking cessation, most recently in . She was placed on a course of Chantix in June 2018 with success. Unfortunately she is smoking again. Last CXR 03/2018; consider CT scan in 2020. Problem Kidney stones N20.0 Active 58104805 She has h ad issues throughout 2017, had an ESWL procedure in September 2018. On KUB she still has multiple intrarenal stones on the right. These are not symptomatic. I added chlorthalidone as of January 2019; she has calcium oxalate stones. She is not taking that at present. Problem Urinary retention R33.9 Active 086439229 Problem Urinary frequency R35.0 Active 418864496 She has tried oxybutinin short-acting at bedtime. She was also started on Elmiron per urology but she is not taking that due to depression side effects. Has possible interstitial cystitis. Myrbetriq caused a severe dry mouth. Problem (HFpEF) heart failure with preserved ejection fraction I50.30 Active 17636183 She had some apparent cardia c decompensation with symptoms of shortness of breath and fatigue, ankle edema in March 2017. She responded to Lasix therapy then, but no longer takes it daily. Her most recent left ventricular ejection fraction was 62% on a radionuclide stress test in July 2017. Problem Dyspnea on exertion R06.09 Active 47455985 She has a history of dyspnea, probably related to her lung disease from cigarette smoking. She last had a cardiac catheterization in December 2011 and a fairly unremarkable radionuclide stress test in July 2017. Spiriva was not helpful to her but Symbicort seemed to help but she is not using it at present. She has albuterol available to her. I would consider pulmonary function testing in the future. She had a bout of dyspnea in March 2017 associated with significant weight gain and I believe congestive heart failure may have played a role here. Problem Microscopic hematuria R31.29 Active 153028657 Problem Sacroiliitis M46.1 Active 64731150 Has a hist ory of left SI joint tenderness and this intermittently flares. Problem Arthritis of hip M19.90 Active 85371957 She de scribes hip arthralgias bilaterally and naproxen once daily was of marginal benefit. We started her on some meloxicam as of December 2016. She was seen by orthopedics in 2012 I believe had a right hip injection then, posssibkly more since. She is considering a hip replacement in the future. Problem Eczema of hand L30.9 Active 387026451 Control led with topical clobetasol. Problem UTI (urinary tract infection) N39.0 Active 68 139916 Problem Bladder spasm N32.89 Active 047950918 Problem Vaginal atrophy N95.2 Active 490142065 Problem Female cystocele N81.10 Active 531551884 ALLERGIES Allergen (clinical drug ingredient) Drug/Non Drug Allergy do cumented on EMR Reaction Allergy Type Onset Date Status lisinopril cough Drug Allergy Active nitrofurantoin Nitrofurantoin([facility] Code:[address]-09) Rash Drug Allergy Active tolterodine Detrol LA([facility] Code:[address]-22) SEVERE DEHYDRATION Drug Allergy Active BEE STINGS Anaphylaxis Non Drug Allergy Active ENCOUNTERS from 1945 to 2020-08-13 Encounter Location Date Provider Diagnosis [facility] [address] [place] [address] Jul Randell Xander Urinary frequency R35.0 and Kidney stone s N20.0 IMMUNIZATIONS Vaccine Route Administration Date Status Influenza (High Dose 65 & up) IM Intramuscular May 07, 2015 A dministered Influenza (Pharmacy Given) Unknown May 11, 2019 Admin istered Influenza (High Dose 65 & up) Unknown Apr 28, 2018 Ad ministered Influenza (High Dose 65 & up) Unknown May 02, 2017 Ad ministered Influenza (High Dose 65 & up) Unknown Jul 01, 2016 Ad ministered Pneumococcal Adult 0.5mL (Pneumovax 23) IM Intramuscular Aug 03, 2019 Administered Pneumococcal 0.5mL (Prevnar 13) IM Intramuscular May 07, 2015 Administered TD Adult 0.5mL (Tetanus) Unknown Aug 30, 2002 Adminis tered Influenza (6mo & up) Fluzone Unknown Apr 26, 2014 Adm inistered SOCIAL HISTORY Tobacco Use: Social History Observation Description Date Details (start date - stop date) Former Smoker Sex Assigned At : Social History Observation Description Sex Assigned At Unknown Education: Question Answer Notes Level of Education: College Audit Question Answer Notes Total Score: 0 Interpretation: Alcohol Education Oriental Orthodox: Question Answer Notes Oriental Orthodox 22 Mandaen No episcopal beliefs that would impact health care. Sexual Hx: Question Answer Notes Had sex in the last 12 months (vaginal, oral, or anal)? Yes Have you ever had an STD? No with Men only Drug and Alcohol Question Answer Notes Total Score: 0 Interpretation: No problems reported Alcohol Screening: Question Answer Notes Did you have a drink containing alcohol in the past year? No Points 0 Interpretation Negative BMI Care Goal Follow-Up Question Answer Notes Above Normal BMI Follow-Up Giving encouragement to exercise Tobacco Use: Question Answer Notes Are you a: former smoker How long has it been since you last smoked? 5-10 years REASON FOR REFERRAL No Information VITAL SIGNS Weight 199.8 lbs Jul, Height 65 in Jul, BMI 33.24 kg/m2 Jul, Heart Rate 65 /min Jul, Respiratory Rate 18 /min Jul, Oximetry 95 Jul, Blood pressure systolic 118 mm Hg Jul, Blood pressure diastolic 64 mm Hg Jul, MEDICATIONS Medication SIG (Take, Route, Frequency, Duration) Notes Start Da te End Date Status Estradiol 0.1 MG/GM 1 gm Vaginal 14 nights then twice a week for 90 days Sep, Active EpiPen 2-Govind 0.3 MG/0.3ML as directed Injection as nee ded for bee stings for 30 day(s) Dec, Active Aspir-81 81 MG 1 tablet Orally Once a day Active Duloxetine HCl 60 MG 1 capsule Orally Once a day for 90 days Active Betamethasone Dipropionate 0.05 % 1 application to cortes ds Externally Twice a day as needed for 20 Active Meloxicam 15 MG 1 tablet Orally Once a day as needed for arthritis fo r 90 Active Eliquis 5 MG 1 tab Orally Daily Acti ve Norvasc 5mg 1/2 pill orally daily for 90 day(s) Active Triamcinolone Acetonide 0.1 % 1 application to affecte d area Externally Twice a day Active Ventolin HFA 108 (90 Base) MCG/ACT 2 puffs Inhalation every 4 hrs as needed for shortness of breath for 30 days Active Simvastatin 40 MG 1 tablet in the evening Orally Once a day for 90 Active Protonix 40 MG 1 tablet Orally Daily Active PROCEDURES No Information RESULTS No Results REASON FOR VISIT OAB, bladder pain MEDICAL (GENERAL) HISTORY Type Description Date Medical History Hormone replacement therapy Medical History Coronary stent 2001 heart cath x 2 Medical History AF (paroxysmal atrial fibrillation) Medical History Arthritis of hip Medical History Dyspnea on exertion Medical History Hypertension Medical History Hypercholesterolemia Medical History Coronary artery disease Medical History Eczema of hand Medical History (HFpEF) heart failure with preserved eje ction fraction Medical History KIDNEY STONE Surgical History Tonsillectomy as child Surgical History Total abdominal Hysterectomy and BSO Surgical History Cholecystectomy 06/09/1990 Surgical History Coronary Angioplasty 06/09/2002 Surgical History left foot bunionectomy and second and th ird hammer toe repair 03/01/2012 Surgical History cystoscopy, right ureterosco py with laser lithotripsy and right ureteral stent placement 04/15/2018 Surgical History CYSTO RIGHT STENT REMOVAL 05/05/2018 Surgical History ESWL for right kidney stone 09/30/2018 Surgical History Cystoscopy 05/23/2019 Hospitalization History No Hospitalization history informati on Goals Section No Information Health Concerns No Information MEDICAL EQUIPMENT No Information MENTAL STATUS No Information FUNCTIONAL STATUS No Information ASSESSMENTS Encounter Date Diagnosis Assessment Notes Treatment Notes Treatm ent Clinical Notes Jul, Urinary frequency (ICD-10 - R35.0) She h as tried oxybutinin short- acting at bedtime. She was also started on Elmiron per urology but she is not taking that due to depression side effects. Has possible interstitial cystitis. Myrbetriq caused a severe dry mouth. She has stopped all urinary medications and is doing well. She still has nocturia but is not overly bothered by this to try DDAVP. Jul, Kidney stones (ICD-10 - N20.0) She has h ad issues throughout 2017, had an ESWL procedure in September 2018. On KUB she still has multiple intrarenal stones on the right. These are not symptomatic. I added chlorthalidone as of January 2019; she has calcium oxalate stones. She is not taking that at present. She has been doing well. She declines having a KUB done today or in the future for monitoring stones. She can f/u prn, calling our office with any concerns for passing a stone or urinary symptoms. PLAN OF TREATMENT Treatment Notes Assessment Notes Clinical Notes Urinary frequency She has stopped all urinary medications and is doing well.She still has nocturia but is not overly bothered by this to try DDAVP. Kidney stones She has been doing w ell. She declines having a KUB done today or in the future for monitoring stones.She can f/u prn, calling our office with any concerns for passing a stone or urinary symptoms. Next Appt Details prn Reason: Provider Name:Ras Singh, 2021-01-28 09 :30:00 AM, [address] [place], [address], Insurance Providers Payer Name Payer Address Payer Phone Insured Name Patient Relati onship to Insured Coverage Start Date Coverage End Date [employer] [facility] [address] [address] [facility] [address] [phone] [place] self
--- OUTSIDE RECORDS SUMMARY | 2020-09-11 17:33 | CCD | Continuity of Care Document ---
Author Author Ce MCBRIDE MD Organization Unknown Address [address] [place] [address], [facility] [address] [place] [address] Phone [phone] Care Team Providers Care Electronic Equipment Installer Name Role Phone Ras Singh MD AUT [phone] Problems Active Problems Provider Date Pure hypercholesterolemia Oliverio Mcbride MD Onset: 020 Social History Type Date Description Comments Sex Unknown ETOH Use Denies alcohol use Tobacco Use Start: Unknown End: Unknown Patient is a former smoker Smoking Status Reviewed: 08/12/19 Patient is a former smoker Allergies, Adverse Reactions, Alerts Active Allergies Reaction Severity Comments Date Nitrofurantoin 04/23/2020 Lisinopril 04/23/2020 Inactive Allergies NKDA 08/12/2019 Medications Active Medications SIG Qnty Indications Ordering Provide r Date Simvastatin 40mg Tablets Unknown Meloxicam 15mg Tablets 1 by mouth every day with food or milk Unknown Amlodipine Besylate 2.5mg Tablets Unknown Aspirin [address] 1 by mouth every day Unknown Oxybutynin Chloride 5mg Tablets Unknown Eliquis 5mg Tablets Unknown Immunizations Description No Information Available Vital Signs Date Vital Result Comment 06/01/2020 9:09am Body Temperature 96.2 F Height 63 inches 5'3" Weight 194.00 lb BMI (Body Mass Index) 34.4 kg/m2 08/12/2019 11:07am Body Temperature 97.1 F Height 63.5 inches 5'3.50" Weight 194.00 lb BMI (Body Mass Index) 33.8 kg/m2 Results Description No Information Available Procedures Date Code Description Status 09/03/2020 99847 X-Ray Hips Bilateral With Pelvis 3-4 Views Completed 04/23/2020 Inject/Drain Joint/Bursa Major C ompleted Medical Devices Description No Information Available Encounters Type Date Location Provider Dx Diagnosis Office Visit 09/03/2020 3:30p Matheus Mcbride MD M70.62 Trochanteric bursitis, left hip M70.61 Trochanteric bursitis, right hip M16.0 Bilateral primary osteoarthr itis of hip Office Visit 06/01/2020 9:15a Matheus Mcbride MD M70.62 Trochanteric bursitis, left hip M70.61 Trochanteric bursitis, right hip M16.0 Bilateral primary osteoarthr itis of hip Office Visit 04/23/2020 2:15p Matheus Mcbride MD M70.62 Trochanteric bursitis, left hip M70.61 Trochanteric bursitis, right hip M16.0 Bilateral primary osteoarthr itis of hip Assessments Date Code Description Provider 09/03/2020 M70.62 Trochanteric bursitis, left hip Oliverio Mcbride MD 09/03/2020 M70.61 Trochanteric bursitis, right hip Oliverio Mcbride MD 09/03/2020 M16.0 Bilateral primary osteoarthritis of hip Oliverio Mcbride MD 06/01/2020 M70.62 Trochanteric bursitis, left hip Oliverio Mcbride MD 06/01/2020 M70.61 Trochanteric bursitis, right hip Oliverio Mcbride MD 06/01/2020 M16.0 Bilateral primary osteoarthritis of hip Oliverio Mcbride MD 04/23/2020 M70.62 Trochanteric bursitis, left hip Oliverio Mcbride MD 04/23/2020 M70.61 Trochanteric bursitis, right hip Oliverio Mcbride MD 04/23/2020 M16.0 Bilateral primary osteoarthritis of hip Oliverio Mcbride MD Plan of Treatment 09/03/2020 - Oliverio Mcbride MD* M70.62 Trochanteric bursitis, left hip* Follow up:* 6 months for tiffanie hip recheck with [facility]. Tiffanie hip xrays needed * M70.61 Trochanteric bursitis, right hip * M16.0 Bilateral primary osteoarthritis of hip Functional Status Description No Information Available Mental Status Description No Information Available Referrals Description No Information Available
--- OUTSIDE RECORDS SUMMARY | 2020-09-11 17:34 | CCD | Continuity of Care Document ---
Author Author Ce MCBRIDE MD Organization Unknown Address [address] [place] [address], [address] [place] [address] Phone [phone] Care Team Providers Care Mustanger Name Role Phone Ras Singh MD AUT [phone] Problems Active Problems Provider Date Pure hypercholesterolemia [...] Information Available Procedures Date Code Description Status 04/23/2020 Inject/Drain Joint/Bursa Major C ompleted Medical Devices Description No Information Available Encounters Type Date Location Provider Dx Diagnosis Office Visit 06/01/2020 9:15a Matheus Mcbride MD M70.62 Trochanteric bursitis, left hip M70.61 Trochanteric bursitis, right hip M16.0 Bilateral primary osteoarthr itis of hip Office Visit 04/23/2020 2:15p Matheus Mcbride MD M70.62 Trochanteric bursitis, left hip M70.61 Trochanteric bursitis, right hip M16.0 Bilateral primary osteoarthr itis of hip Assessments Date Code Description Provider 06/01/2020 M70.62 Trochanteric bursitis, left hip Oliverio Mcbride MD 06/01/2020 M70.61 Trochanteric bursitis, right hip Oliverio Mcbride MD 06/01/2020 M16.0 Bilateral primary osteoarthritis of hip Oliverio Mcbride MD 04/23/2020 M70.62 Trochanteric bursitis, left hip Oliverio Mcbride MD 04/23/2020 M70.61 Trochanteric bursitis, right hip Oliverio Mcbride MD 04/23/2020 M16.0 Bilateral primary osteoarthritis of hip Oliverio Mcbride MD Plan of Treatment 06/01/2020 - Oliverio Mcbride MD* M70.62 Trochanteric bursitis, left hip* Follow up:* in 3-4 months with [facility] for tiffanie hip recheck with repeat xrays of both hips please. * M70.61 Trochanteric bursitis, right hip * M16.0 Bilateral primary osteoarthritis of hip Functional Status Description No Information Available Mental Status Description No Information Available Referrals Description No Information Available
--- OUTSIDE RECORDS SUMMARY | 2020-09-11 17:34 | CCD ---
Author Author [facility] Organization [facility] Address Unknown Phone Unavailable Care Team Providers Care Direct Marketing Analyst Name Role Phone Ras Singh Unavailable PROBLEMS Type Condition ICD9-CM Code [id number] Code Onset Dates Condition S tatus SNOMED Code Notes Problem Elevated fasting glucose R73.01 Active 0520274 07 Her fasting glucose was 129 in [...] January 2020. Problem Gastroesophageal reflux K21.9 Active [id number] 9 I placed her on a PPI in August 2012 but she is no longer taking that and does not complain of much heartburn. She had a normal upper endoscopy in July 2017. She has a history of some right upper quadrant pain and I started her on Protonix in December 2016 but she no longer requires that. Problem Hypertension I10 Active 82367699 Blood pres sure is reasonably controlled on amlodipine. She is not on losartan apparently, since it is not on her medication list. She was taken off metoprolol in June 2018 by her baked goods stock clerk because of the slow heart rate. She [...] 03/2020. Problem Coronary artery disease I25.10 Active 23927207 She had coronary artery angioplasty with stent [...] Lichen sclerosus et atrophicus L90.0 Active 2 3899794 Problem Dysthymia F34.1 Active 17511075 Symptoms were not at all controlled when she started Elmiron in 05/2019, and this has been discontinued. She was treated with low-dose Wellbutrin SR 5150-7593 and she apparently stopped it in 2013. I started her on duloxetine for her dysthymia and arthritis as of 07/2019. Dose increased to 60 mg daily in 07/2020. 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 This was last checked in January 2020. Problem Cigarette smoker F17.210 Active 83726088 She salas s a long history of smoking. She has quit a number of times in the past. She was counseled regarding smoking cessation, most recently in . She was placed on a course of Chantix in June 2018 with success. Unfortunately she is smoking again. Last CXR 03/2018; consider CT scan in 2020. Problem Kidney stones N20.0 Active 24558527 She has h ad issues throughout 2017, had an ESWL procedure in September 2018. On KUB she still has multiple intrarenal stones on the right. These are not symptomatic. I added chlorthalidone as of January 2019; she has calcium oxalate stones. She is not taking that at present. Problem Urinary retention R33.9 Active 023741070 Problem Urinary frequency R35.0 Active 275301473 She has tried oxybutinin short-acting at bedtime. She was also started on Elmiron per urology but she is not taking that due to depression side effects. Has possible interstitial cystitis. Myrbetriq caused a severe dry mouth. Problem (HFpEF) heart failure with preserved ejection fraction I50.30 Active 19258959 She had some apparent cardia c decompensation with symptoms of shortness of breath and fatigue, ankle edema in March 2017. She responded to Lasix therapy then, but no longer takes it daily. Her most recent left ventricular ejection fraction was 62% on a radionuclide stress test in July 2017. Problem Dyspnea on exertion R06.09 Active 47249753 She has a history of dyspnea, probably [...] role here. Problem Microscopic hematuria R31.29 Active 867371416 Problem Sacroiliitis M46.1 Active 75571386 Has a hist ory of left SI joint tenderness and this intermittently flares. Problem Arthritis of hip M19.90 Active 81706131 She de scribes hip arthralgias bilaterally and naproxen once daily was of marginal benefit. We started her on some meloxicam as of December 2016. She was seen by orthopedics in 2012 I believe had a right hip injection then, posssibkly more since. She is considering a hip replacement in the future. Problem Eczema of hand L30.9 Active 369263643 Control led with topical clobetasol. Problem UTI (urinary tract infection) N39.0 Active 68 682515 Problem Bladder spasm N32.89 Active 240340721 Problem Vaginal atrophy N95.2 Active 053532978 Problem Female cystocele N81.10 Active 779053667 ALLERGIES Allergen (clinical drug ingredient) Drug/Non Drug Allergy do cumented on EMR Reaction Allergy Type Onset Date Status lisinopril cough Drug Allergy Active nitrofurantoin Nitrofurantoin(NDC Code:[address]-26) Rash Drug Allergy Active tolterodine Detrol LA(ND Code:[address]-43) SEVERE DEHYDRATION Drug Allergy Active BEE STINGS Anaphylaxis Non Drug Allergy Active ENCOUNTERS from 1945 to 2020-08-01 Encounter Location Date Provider Diagnosis [address] [address] Jul, Frank [place] Medicare [facility] ; AF (paroxysmal atrial fibrillation) I48.0 ; Hypertension I10 ; Hypercholesterolemia E78.00 ; Coronary artery disease I25.10 ; Urinary frequency R35.0 ; Dysthymia F34.1 ; (HFpEF) heart failure with preserved ejection fraction I50.30 ; Cigarette smoker F17.210 ; Elevated fasting glucose R73.01 ; Arthritis of hip M19.90 ; Dyspnea on exertion R06.09 ; Gastroesophageal reflux K21.9 ; Eczema of hand L30.9 and Encounter for screening for malignant neoplasm of breast, unspecified screening modality Z12.39 IMMUNIZATIONS Vaccine Route Administration Date Status Influenza (Pharmacy Given) Unknown May 11, 2019 Admin istered Influenza (High Dose 65 & up) Unknown Apr 28, 2018 Ad ministered Influenza (High Dose 65 & up) Unknown May 02, 2017 Ad ministered Influenza (High Dose 65 & up) Unknown Jul 01, 2016 Ad ministered Influenza (High Dose 65 & up) IM Intramuscular May 07, 2015 A dministered Pneumococcal Adult 0.5mL (Pneumovax 23) IM Intramuscular [...] Notes Total Score: 0 Interpretation: Alcohol Education Mormon: Question Answer Notes Mormon 21 Jainism No synagogue beliefs that would impact health care. Sexual [...] FOR REFERRAL No Information VITAL SIGNS Weight 195.0 lbs Jul, Height 65 in Jul, BMI 32.45 kg/m2 Jul, Heart Rate 81 /min Jul, Respiratory Rate 20 /min Jul, Temperature 97.3 degrees Fahrenheit Jul, Oximetry 96% Jul, Blood pressure systolic 112 mm Hg Jul, Blood pressure diastolic 62 mm Hg Jul, MEDICATIONS Medication SIG (Take, Route, Frequency, Duration) Notes Start Da te End Date Status Meloxicam 15 MG 1 tablet Orally Once a day as needed for arthritis fo r 90 Active Norvasc 5mg 1/2 pill orally daily for 90 day(s) Active Aspir-81 81 MG 1 tablet Orally Once a day Active Simvastatin 40 MG 1 tablet in the evening Orally Once a day for 90 Active Eliquis 5 MG 1 tab Orally Daily Acti ve EpiPen 2-Govind 0.3 MG/0.3ML as directed Injection as nee ded for bee stings for 30 day(s) Dec, Active Estradiol 0.1 MG/GM 1 gm Vaginal 14 nights then twice a week for 90 days Sep, Active Betamethasone Dipropionate 0.05 % 1 application to cortes ds Externally Twice a day as needed for 20 Active Triamcinolone Acetonide 0.1 % 1 application to affecte d area Externally Twice a day Active Duloxetine HCl 60 MG 1 capsule Orally Once a day for 90 days Active Protonix 40 MG 1 tablet Orally Daily Active Ventolin HFA 108 (90 Base) MCG/ACT 2 puffs Inhalation every 4 hrs as needed for shortness of breath for 30 days Active PROCEDURES No Information RESULTS No Results REASON FOR VISIT Annual wellness exam with labs to review MEDICAL (GENERAL) HISTORY Type Description Date Medical [...] Treatment Notes Treatm ent Clinical Notes Jul, Medicare annual wellness visit, subsequent (ICD- 10 - Z00.00) Jul, AF (paroxysmal atrial fibrillation) (ICD -10 - I48.0) She had a bout of atrial fibrillation [...] normal, with aortic sclerosis and mild AI. Jul, Hypertension (ICD-10 - I10) Blood pressure is reasonably controlled on amlodipine. She is not on losartan apparently, since it is not on her medication list. She was taken off metoprolol in June 2018 by her baked goods stock clerk because of the slow heart rate. She [...] 07/2019 and 01/2020, possibly because of urinary issues. She had an echocardiogram in 03/2020. Jul, Hypercholesterolemia (ICD-10 - E78.00) L ipid control is optimal now that she is taking her statin therapy faithfully. This was last checked in January 2020. Jul, Coronary artery disease (ICD-10 - I25.10 ) She had coronary artery angioplasty with stent [...] failure in March 2017 but not since. Jul, Urinary frequency (ICD-10 - R35.0) She h as tried oxybutinin short- acting at bedtime. She was also started on Elmiron per urology but she is not taking that due to depression side effects. Has possible interstitial cystitis. Myrbetriq caused a severe dry mouth. Jul, Dysthymia (ICD-10 - F34.1) Symptoms were not at all controlled when she started Elmiron in 05/2019, and this has been discontinued. She was treated with low-dose Wellbutrin SR 9898-2527 and she apparently stopped it in 2013. I s tarted her on duloxetine for her dysthymia and arthritis as of 07/2019. Dose increased to 60 mg daily in 07/2020. Jul, (HFpEF) heart failure with p reserved ejection fraction (ICD-10 - I50.30) She had some apparent cardiac decompensa tion with symptoms of shortness of breath and fatigue, ankle edema in March 2017. She responded to Lasix therapy then, but no longer takes it daily. Her most recent left ventricular ejection fraction was 62% on a radionuclide stress test in July 2017. Jul, Cigarette smoker (ICD-10 - F17.210) She has a long history of smoking. She has quit a number of times in the past. She was counseled regarding smoking cessation, most recently in . She was placed on a course of Chantix in June 2018 with success. Unfortunately she is smoking again. Last CXR 03/2018; consider CT scan in 2020. Jul, Elevated fasting glucose (ICD-10 - R73.0 1) Her fasting glucose was 129 in 04/2014. [...] Urine microalbumin was negative in January 2020. Jul, Arthritis of hip (ICD-10 - M19.90) She d escribes hip arthralgias bilaterally and naproxen once daily was of marginal benefit. We started her on some meloxicam as of December 2016. She was seen by orthopedics in 2012 I believe had a right hip injection then, posssibkly more since. She is considering a hip replacement in the future. Jul, Dyspnea on exertion (ICD-10 - R06.09) Kiki cueva has a history of dyspnea, probably related [...] failure may have played a role here. Jul, Gastroesophageal reflux (ICD-10 - K21.9) I placed her on a PPI in August 2012 but she is no longer taking that and does not complain of much heartburn. She had a normal upper endoscopy in July 2017. She has a history of some right upper quadrant pain and I started her on Protonix in December 2016 but she no longer requires that. Jul, Eczema of hand (ICD-10 - L30.9) Controll ed with topical clobetasol. Jul, Encounter for screening for malignant neoplasm of breast, unspecified screening modality (ICD-10 - Z12.39) PLAN OF TREATMENT Medication Medication Name Sig Start Date Stop Date Duloxetine HCl 60 MG 1 capsule Orally Once a day for 90 days Treatment Notes Test Name Order Date [facility] Salo Screening Bilateral (Ultrasound if Indicated ) (3D Mammo) 2020-08-01 Future Test Test Name Order Date Comprehensive Metabolic Profile (CMP) [id number] MAGNESIUM LEVEL [id number] LIPID PANEL (CARDIAC RISK) [id number] HEMOGLOBIN A1c [id number] CBC with Differential [id number] Next Appt Details 6 Months Reason: Provider Name:Randell Terrell, 2020-08-07 10:15:00 AM, [id number], [place], [address], Provider Name:Ras Singh, 2021-01-28 09 :30:00 AM, [address] [place], [address], Insurance Providers Payer Name Payer Address Payer Phone Insured Name Patient Relati onship to Insured Coverage Start Date Coverage End Date [facility] [address] [address] [facility] [address] [phone] LAUREN COLES
--- OUTSIDE RECORDS SUMMARY | 2020-09-11 17:34 | CCD ---
Author Author [facility] Organization [facility] Address Unknown Phone Unavailable Care Team Providers Care Otter Trawler Boatswain Name Role Phone Randa Pantoja MD Unavailable Unavailable Randa Pantoja MD Unavailable Unavailable Randa Pantoja MD Unavailable Unavailable Randa Pantoja MD Unavailable Unavailable Randa Pantoja MD Unavailable Unavailable Randa Pantoja MD Unavailable Unavailable Randa Pantoja MD Unavailable Unavailable Randa Pantoja MD Unavailable Unavailable Randa Pantoja MD Unavailable Unavailable Randa Pantoja MD Unavailable Unavailable Randa Pantoja MD Unavailable Unavailable Randa Pantoja MD Unavailable Unavailable Randa Pantoja MD Unavailable Unavailable Randa Pantoja MD Unavailable Unavailable Randa Pantoja MD Unavailable Unavailable Randa Panotja MD Unavailable Unavailable Randa Pantoja MD Unavailable Unavailable Randa Pantoja MD Unavailable Unavailable Randa Pantoja MD Unavailable Unavailable Randa Pantoja MD Unavailable Unavailable Randa Pantoja MD Unavailable Unavailable Randa Pantoja MD Unavailable Unavailable Randa Pantoja MD Unavailable Unavailable Randa Pantoja MD Unavailable Unavailable Randa Pantoja MD Unavailable Unavailable Randa Pantoja MD Unavailable Unavailable Randa Pantoja MD Unavailable Unavailable Randa Pantoja MD Unavailable Unavailable Randa Pantoja MD Unavailable Unavailable Randa Pantoja MD Unavailable Unavailable SlesarahykaMoshetech Unavailable Unavailable SlesarahykaRanda MD Unavailable Unavailable SleMoshe lincolntech Unavailable Unavailable SleRanda lincoln MD Unavailable Unavailable SleRanda lincoln MD Unavailable Unavailable SlesarahykaRanda MD Unavailable Unavailable SleMoshe lincolntech Unavailable Unavailable GerardkaMoshetech Unavailable Unavailable Randa Pantoja MD Unavailable Unavailable Moshe Pantojatech Unavailable Unavailable Randa Pantoja MD Unavailable Unavailable GerardkaJesusjtech Unavailable Unavailable GerardkaMoshetech Unavailable Unavailable GerardkaMoshetech Unavailable Unavailable GerardkaRanda MD Unavailable Unavailable GerardkaMoshetech Unavailable Unavailable Randa Pantoja MD Unavailable Unavailable Jesus Pantojajtech Unavailable Unavailable Moshe Pantojatech Unavailable Unavailable Moshe Pantojatech Unavailable Unavailable Randa Pantoja MD Unavailable Unavailable Randa Pantoja MD Unavailable Unavailable Randa Pantoja MD Unavailable Unavailable Randa Pantoja MD Unavailable Unavailable Randa Pantoja MD Unavailable Unavailable Moshe Pantojatech Unavailable Unavailable Randa Pantoja MD Unavailable Unavailable Randa Pantoja MD Unavailable Unavailable Fons, M Alyssa PERSONAL INSURANCE ADVISOR Unavailable Unavailable Fons, M Alyssa PERSONAL INSURANCE ADVISOR Unavailable Unavailable Fons, M Alyssa PERSONAL INSURANCE ADVISOR Unavailable Unavailable Fons, M Alyssa PERSONAL INSURANCE ADVISOR Unavailable Unavailable Fons, M Alyssa PERSONAL INSURANCE ADVISOR Unavailable Unavailable Fons, M Alyssa PERSONAL INSURANCE ADVISOR Unavailable Unavailable Fons, M Alyssa PERSONAL INSURANCE ADVISOR Unavailable Unavailable Fons, M Alyssa PERSONAL INSURANCE ADVISOR Unavailable Unavailable Fons, M Alyssa PERSONAL INSURANCE ADVISOR Unavailable Unavailable Fons, M Alyssa PERSONAL INSURANCE ADVISOR Unavailable Unavailable Fons, M Alyssa PERSONAL INSURANCE ADVISOR Unavailable Unavailable Fons, M Alyssa PERSONAL INSURANCE ADVISOR Unavailable Unavailable Fons, M Alyssa PERSONAL INSURANCE ADVISOR Unavailable Unavailable Fons, M Alyssa PERSONAL INSURANCE ADVISOR Unavailable Unavailable Fons, M Alyssa PERSONAL INSURANCE ADVISOR Unavailable Unavailable Fons, M Alyssa PERSONAL INSURANCE ADVISOR Unavailable Unavailable Fons, M Alyssa PERSONAL INSURANCE ADVISOR Unavailable Unavailable Fons, M Alyssa PERSONAL INSURANCE ADVISOR Unavailable Unavailable Fons, M Alyssa PERSONAL INSURANCE ADVISOR Unavailable Unavailable Fons, M Alyssa PERSONAL INSURANCE ADVISOR Unavailable Unavailable Fons, M Alyssa PERSONAL INSURANCE ADVISOR Unavailable Unavailable Fons, M Alyssa PERSONAL INSURANCE ADVISOR Unavailable Unavailable Fons, M Alyssa PERSONAL INSURANCE ADVISOR Unavailable Unavailable Fons, M Alyssa PERSONAL INSURANCE ADVISOR Unavailable Unavailable Fons, M Alyssa PERSONAL INSURANCE ADVISOR Unavailable Unavailable Fons, M Alyssa PERSONAL INSURANCE ADVISOR Unavailable Unavailable Fons, M Alyssa PERSONAL INSURANCE ADVISOR Unavailable Unavailable Fons, M Alyssa PERSONAL INSURANCE ADVISOR Unavailable Unavailable Fons, M Alyssa PERSONAL INSURANCE ADVISOR Unavailable Unavailable Fons, M Alyssa PERSONAL INSURANCE ADVISOR Unavailable Unavailable Fons, M Alyssa PERSONAL INSURANCE ADVISOR Unavailable Unavailable Fons, M Alyssa PERSONAL INSURANCE ADVISOR Unavailable Unavailable Fons, M Alyssa PERSONAL INSURANCE ADVISOR Unavailable Unavailable Fons, M Alyssa PERSONAL INSURANCE ADVISOR Unavailable Unavailable Fons, M Alyssa PERSONAL INSURANCE ADVISOR Unavailable Unavailable Fons, M Alyssa PERSONAL INSURANCE ADVISOR Unavailable Unavailable Fons, M Alyssa PERSONAL INSURANCE ADVISOR Unavailable Unavailable Fons, M Alyssa PERSONAL INSURANCE ADVISOR Unavailable Unavailable Fons, M Alyssa PERSONAL INSURANCE ADVISOR Unavailable Unavailable Fons, M Alyssa PERSONAL INSURANCE ADVISOR Unavailable Unavailable Fons, M Alyssa PERSONAL INSURANCE ADVISOR Unavailable Unavailable Fons, M Alyssa PERSONAL INSURANCE ADVISOR Unavailable Unavailable Fons, M Alyssa PERSONAL INSURANCE ADVISOR Unavailable Unavailable Fons, M Alyssa PERSONAL INSURANCE ADVISOR Unavailable Unavailable Fons, M Alyssa PERSONAL INSURANCE ADVISOR Unavailable Unavailable Fons, M Alyssa PERSONAL INSURANCE ADVISOR Unavailable Unavailable Fons, M Alyssa PERSONAL INSURANCE ADVISOR Unavailable Unavailable Fons, M Alyssa PERSONAL INSURANCE ADVISOR Unavailable Unavailable Fons, M Alyssa PERSONAL INSURANCE ADVISOR Unavailable Unavailable Fons, M Alyssa PERSONAL INSURANCE ADVISOR Unavailable Unavailable Fons, M Alyssa PERSONAL INSURANCE ADVISOR Unavailable Unavailable Fons, M Alyssa PERSONAL INSURANCE ADVISOR Unavailable Unavailable Fons, M Alyssa PERSONAL INSURANCE ADVISOR Unavailable Unavailable Fons, M Alyssa PERSONAL INSURANCE ADVISOR Unavailable Unavailable Fons, M Alyssa PERSONAL INSURANCE ADVISOR Unavailable Unavailable Fish, Ella Duron MD Unavailable Unavailable Fish, Ella Duron MD Unavailable Unavailable Fish, Ella Duron MD Unavailable Unavailable Fish, Ella Duron MD Unavailable Unavailable Fish, Ella Duron MD Unavailable Unavailable Fish, Ella Duron MD Unavailable Unavailable Fish, Ella Duron MD Unavailable Unavailable Fish, Ella Duron MD Unavailable Unavailable Fish, Ella Duron MD Unavailable Unavailable Fish, Ella Duron MD Unavailable Unavailable Fish, Ella Duron MD Unavailable Unavailable Fish, Ella Duron MD Unavailable Unavailable Fish, Ella Duron MD Unavailable Unavailable Fish, Ella Duron MD Unavailable Unavailable Fish, Ella Duron MD Unavailable Unavailable Fish, Ella Duron MD Unavailable Unavailable Fish, Ella Duron MD Unavailable Unavailable Fish, Ella Duron MD Unavailable Unavailable Fish, Ella Duron MD Unavailable Unavailable Fish, Ella Duron MD Unavailable Unavailable Fish, Ella Duron MD Unavailable Unavailable Fish, Ella Duron MD Unavailable Unavailable Fish, Ella Duron MD Unavailable Unavailable Fish, Ella Duron MD Unavailable Unavailable Fish, Ella Duron MD Unavailable Unavailable Fish, Ella Duron MD Unavailable Unavailable Fish, B Oliverio [place] Unavailable Unavailable Fish, B Oliverio [place] Unavailable Unavailable Fish, B Oliverio [place] Unavailable Unavailable Fish, B Oliverio [place] Unavailable Unavailable Fish, B Oliverio [place] Unavailable Unavailable Fish, B Oliverio [place] Unavailable Unavailable Fish, B Oliverio [place] Unavailable Unavailable Fish, B Oliverio [place] Unavailable Unavailable Fish, B Oliverio [place] Unavailable Unavailable Fish, B Oliverio [place] Unavailable Unavailable Fish, B Oliverio [place] Unavailable Unavailable Fish, B Oliverio [place] Unavailable Unavailable Fish, B Oliverio [place] Unavailable Unavailable Fish, B Oliverio [place] Unavailable Unavailable Fish, B Oliverio [place] Unavailable Unavailable Fish, B Oliverio [place] Unavailable Unavailable Fish, B Oliverio [place] Unavailable Unavailable Fish, B Oliverio [place] Unavailable Unavailable Fish, B Oliverio [place] Unavailable Unavailable Fish, B Oliverio [place] Unavailable Unavailable Fish, B Oliverio [place] Unavailable Unavailable Fish, B Oliverio [place] Unavailable Unavailable Fish, B Oliverio [place] Unavailable Unavailable Fish, B Oliverio [place] Unavailable Unavailable Fish, B Oliverio [place] Unavailable Unavailable Fish, B Oliverio [place] Unavailable Unavailable Fish, B Oliverio [place] Unavailable Unavailable RING, K EVAN PA Unavailable Unavailable RING, K EVAN PA Unavailable Unavailable RING, K EVAN PA Unavailable Unavailable RING, K EVAN PA Unavailable Unavailable RING, K EVAN PA Unavailable Unavailable RING, K EVAN PA Unavailable Unavailable RING, K EVAN PA Unavailable Unavailable RING, K EVAN PA Unavailable Unavailable RING, K EVAN PA Unavailable Unavailable RING, K EVAN PA Unavailable Unavailable RING, K EVAN PA Unavailable Unavailable RING, K EVAN PA Unavailable Unavailable RING, K EVAN PA Unavailable Unavailable RING, K EVAN PA Unavailable Unavailable RING, K EVAN PA Unavailable Unavailable RING, K EVAN PA Unavailable Unavailable RING, K EVAN PA Unavailable Unavailable RING, K EVAN PA Unavailable Unavailable RING, K EVAN PA Unavailable Unavailable RING, K EVAN PA Unavailable Unavailable RING, K EVAN PA Unavailable Unavailable TAY BARON MD Unavailable Unavailable TAY BARON MD Unavailable Unavailable TAY BARON MD Unavailable Unavailable DANIEL BARONA Unavailable Unavailable GIDANIEL CULVERA Unavailable Unavailable GIPALOMO TAY Unavailable Unavailable GIDANIEL CULVERA Unavailable Unavailable GIDANIEL CULVERA Unavailable Unavailable GINZBURG, TAY MD Unavailable Unavailable GINZBURG, TAY MD Unavailable Unavailable GINZBURG, TAY MD Unavailable Unavailable GINZBURG, TAY MD Unavailable Unavailable GINZBURG, TAY MD Unavailable Unavailable GINZBURG, TAY MD Unavailable Unavailable GINZBURG, TAY MD Unavailable Unavailable GINZBURG, TAY MD Unavailable Unavailable GINZBURG, TAY MD Unavailable Unavailable GINZBURG, TAY MD Unavailable Unavailable GINZBURG, TAY MD Unavailable Unavailable GINZBURG, TAY MD Unavailable Unavailable GINZBURG, TAY MD Unavailable Unavailable GINZBURG, TAY MD Unavailable Unavailable GINZBURG, TAY MD Unavailable Unavailable GINZBURG, TAY MD Unavailable Unavailable GINZBURG, TAY MD Unavailable Unavailable GINZBURG, TAY MD Unavailable Unavailable GINZBURG, TAY MD Unavailable Unavailable GINZBURG, TAY MD Unavailable Unavailable GINZBURG, TAY MD Unavailable Unavailable GINZBURG, TAY MD Unavailable Unavailable GINZBURG, TAY MD Unavailable Unavailable GINZBURG, TAY MD Unavailable Unavailable GINZBURG, TAY MD Unavailable Unavailable GINZBURG, TAY MD Unavailable Unavailable GINZBURG, ATY MD Unavailable Unavailable GINZBURG TAY MD Unavailable Unavailable GINZBURG, TAY MD Unavailable Unavailable GINZBURG, TAY MD Unavailable Unavailable GINZBURG, TAY MD Unavailable Unavailable GINZBURG, TAY MD Unavailable Unavailable GINZBURG, TAY MD Unavailable Unavailable GINZBURG, TAY MD Unavailable Unavailable GINZBURG, TAY MD Unavailable Unavailable GINZBURG, TAY MD Unavailable Unavailable GINZBURG, TAY MD Unavailable Unavailable GINZBURG, TAY MD Unavailable Unavailable GINZBURG, TAY MD Unavailable Unavailable GINZBURG, TAY MD Unavailable Unavailable GINZBURG, TAY MD Unavailable Unavailable GINZBURG, TAY MD Unavailable Unavailable GINZBURG, TAY MD Unavailable Unavailable GINZBURG, TAY MD Unavailable Unavailable GINZBURG, TAY MD Unavailable Unavailable GINZBURG, TAY MD Unavailable Unavailable GINZBURG, TAY MD Unavailable Unavailable TAY BARON MD Unavailable Unavailable TAY BARON MD Unavailable Unavailable TAY BARON MD Unavailable Unavailable TAY BARON MD Unavailable Unavailable DANIEL BARONA Unavailable Unavailable DANIEL BARONA Unavailable Unavailable GIDANIEL CULVERA Unavailable Unavailable GIDANIEL CULVERA Unavailable Unavailable GIDANIEL CULVERA Unavailable Unavailable DANIEL BARONA Unavailable Unavailable DANIEL BARONA Unavailable Unavailable DANIEL BARONA Unavailable Unavailable DANIEL BARONA Unavailable Unavailable TAY BARON MD Unavailable Unavailable TAY BARON MD Unavailable Unavailable Fish, B Oliverio [place] Unavailable Unavailable Fish, B Oliverio [place] Unavailable Unavailable Fish, B Oliverio [place] Unavailable Unavailable Fish, B Oliverio [place] Unavailable Unavailable Fish, B Oliverio [place] Unavailable Unavailable Fish, B Oliverio [place] Unavailable Unavailable Fish, B Oliverio [place] Unavailable Unavailable Fish, B Oliverio [place] Unavailable Unavailable Fish, B Oliverio [place] Unavailable Unavailable Fish, B Oliverio [place] Unavailable Unavailable Fish, B Olievrio [place] Unavailable Unavailable Fish, B Oliverio [place] Unavailable Unavailable Fish, B Oliverio [place] Unavailable Unavailable Fish, B Oliverio [place] Unavailable Unavailable Fish, B Oliverio [place] Unavailable Unavailable Fish, B Oliverio [place] Unavailable Unavailable Fish, B Oliverio [place] Unavailable Unavailable Fish, B Oliverio [place] Unavailable Unavailable Fish, B Oliverio [place] Unavailable Unavailable Fish, B Oliverio [place] Unavailable Unavailable Fish, B Oliverio [place] Unavailable Unavailable Fish, B Oliverio [place] Unavailable Unavailable Fish, B Oliverio [place] Unavailable Unavailable Fish, B Oliverio [place] Unavailable Unavailable Fish, B Oliverio [place] Unavailable Unavailable Fish, B Oliverio [place] Unavailable Unavailable Fish, B Oliverio [place] Unavailable Unavailable Fish, B Oliverio [place] Unavailable Unavailable Fish, B Oliverio [place] Unavailable Unavailable Fish, B Oliverio [place] Unavailable Unavailable Fish, B Oliverio [place] Unavailable Unavailable Fish, B Oliverio [place] Unavailable Unavailable Fish, B Oliverio [place] Unavailable Unavailable Fish, B Oliverio [place] Unavailable Unavailable Fish, B Oliverio [place] Unavailable Unavailable Fish, B Oliverio [place] Unavailable Unavailable Fish, B Oliverio [place] Unavailable Unavailable Fish, B Oliverio [place] Unavailable Unavailable Fish, B Oliverio [place] Unavailable Unavailable Fish, B Oliverio [place] Unavailable Unavailable Fish, B Oliverio [place] Unavailable Unavailable Fish, B Oliverio [place] Unavailable Unavailable Fish, B Oliverio MD Unavailable Unavailable Fish, B Oliverio MD Unavailable Unavailable Fish, B Oliverio [place] Unavailable Unavailable Fish, B Oliverio MD Unavailable Unavailable Fish, B Oliverio MD Unavailable Unavailable Fish, B Oliverio MD Unavailable Unavailable Fish, B Oliverio MD Unavailable Unavailable Fish, B Oliverio MD Unavailable Unavailable Fish, B Oliverio MD Unavailable Unavailable Fish, B Oliverio MD Unavailable Unavailable Fish, B Oliverio MD Unavailable Unavailable Martinez, Mitzi Yumiko PA Unavailable Unavailable Martinez, Mitzi Yumiko PA Unavailable Unavailable Martinez, Mitzi Yumiko PA Unavailable Unavailable Martinez, Mitzi Yumiko PA Unavailable Unavailable Martinez, Mitzi Yumiko PA Unavailable Unavailable Martinez, Mitzi Yumiko PA Unavailable Unavailable Martinez, Mitzi Yumiko PA Unavailable Unavailable Martinez, Mitzi Yumiko PA Unavailable Unavailable Martinez, Mitzi Yumiko PA Unavailable Unavailable Martinez, Mitzi Yumiko PA Unavailable Unavailable Re-disclosure Warning The records that you are about to access may contain information from federally-assisted alcohol or drug abuse programs. If such information is present, then the following federally mandated warning applies: This information has been disclosed to you from records protected by federal confidentiality rules (42 CFR part 2). The federal rules prohibit you from making any further disclosure of this information unless further disclosure is expressly permitted by the written consent of the person to whom it pertains or as otherwise permitted by 42 CFR part 2. A general authorization for the release of medical or other information is NOT sufficient for this purpose. The Federal rules restrict any use of the information to criminally investigate or prosecute any alcohol or drug abuse patient.The records that you are about to access may contain highly sensitive health information, the redisclosure of which is protected by Article 27-F of the [facility] Public Health law. If you continue you may have access to information: Regarding HIV / AIDS; Provided by facilities licensed or operated by the [facility] Office of Mental Health; or Provided by the [facility] Office for People With Developmental Disabilities. If such information is present, then the following [facility] mandated warning applies: This information has been disclosed to you from confidential records which are protected by state law. State law prohibits you from making any further disclosure of this information without the specific written consent of the person to whom it pertains, or as otherwise permitted by law. Any unauthorized further disclosure in violation of state law may result in a fine or long term sentence or both. A general authorization for the release of medical or other information is NOT sufficient authorization for further disc losure. Allergies and Adverse Reactions Type Description Substance Reaction Status Data Source(s ) Propensity to adverse reactions BEE VENOM Honey bee venom Active [facility] Drug allergy Detrol LA tolterodine SEVERE DEHYDRATION Active eC W1 ([facility]) Drug allergy Nitrofurantoin Nitrofurantoin Rash Active eCW1 ([facility]) BEE STINGS BEE STINGS BEE STINGS Anaphylaxis Active eCW1 ([facility], [facility]) BEE STINGS BEE STINGS BEE STINGS Anaphylaxis Active eCW1 ([facility], [facility]) BEE STINGS BEE STINGS BEE STINGS Anaphylaxis Active eCW1 ([facility], [facility]1983) Oxybutynin Chloride Oxybutynin Chloride Oxybutynin Chloride DEHYDRATI ON Active eCW1 ([facility]) BEE STINGS BEE STINGS BEE STINGS Anaphylaxis Active eCW1 ([facility], [facility]) Drug Allergy Drug Allergy NKDA MEDENT ([facility]) Family History Family Member Name Family Member Gender Family Member Status Date o f Status Description Data Source(s) Unknown Unknown Problem MEDENT ([facility]) Unknown Male Problem MEDENT ([facility]) Encounters Encounter Providers Location Date Indications Data Source(s ) Outpatient Attender: Oliverio Mcbride MD Physical Therapy 09/03/2020 0 2:30:00 PM EST MEDENT ([facility]) [place] [address] [address] 08/07/2020 12:00:00 AM EST eCW1 ([facility]) [place] [address] [address] 07/25/2020 12:00:00 AM EST eCW1 ([facility]) Outpatient Attender: Alyssa KUHN SJP.GILLIAN-SJP.GILLIAN 0 12:00:00 AM EST - 06/26/2020 04:05:22 PM EST [facility] OFFICE OUTPATIENT VISIT 15 MINUTES Attender: Oliverio Mcbride MD Phys ical Therapy 06/01/2020 08:15:00 AM EST MEDENT ([facility]) Outpatient Attender: EVAN Bolton Primary 04/28/2020 10:15:00 AM EDT MEDENT ([facility]) Outpatient Attender: Oliverio Mcbride MD Physical Therapy 04/23/2020 0 2:15:00 PM EDT MEDENT ([facility]) [place] [address] [address] 04/18/2020 12:00:00 AM EDT eCW1 ([facility]) Outpatient JOSLYN-SJP 03/26/2020 07:18:54 PM EDT [facility] Outpatient Attender: Alyssa Iverson FNPReferrer: Alyssa CarranzaGILLIAN-SJCarlee.GILLIAN 03/23/2020 12:00:00 AM EDT - 03/23/2020 02:19:27 PM EDT [facility] Outpatient Referrer: Alyssa PRITCHETTGILLIAN-SJP.GILLIAN 03/23/2020 12:00:00 AM EDT [facility] Outpatient Referrer: Randa PRITCHETTCT-SJP.SYR 02/18 09:17:09 AM EDT [facility] Outpatient Attender: Randa Pantoja MDReferrer: Moshe PRITCHETTCT-SJP.SYR 02/21/2020 10:46:47 AM EDT [facility] Outpatient Attender: Alyssa PRITCHETTGLILIAN-SJP.GILLIAN 0 01:51:23 PM EDT - 02/17/2020 03:04:53 PM EDT [facility] [address] [address] 02/15/2020 12:00:00 AM EDT eCW1 ([facility]) Outpatient Attender: Yumikojessica penn 12/21/2019 01:30:00 PM EDT MEDENT ([facility]) [facility] [address] [facility] [address] 12/06/2019 12:00:00 AM EDT eCW1 ([facility]) [facility] [address] [facility] [place] [address] 12/05/2019 12:00:00 AM EDT eCW1 ([facility]) Outpatient Attender: TAY BARON MD 11/23/2019 12:00: 00 AM [facility] Outpatient Attender: Oliverio Mcbride MD Physical Therapy 11/07/2019 1 1:30:00 AM EDT MEDENT ([facility]) [facility] [address] [facility] [place] [address] 10/18/2019 12:00:00 AM EDT eCW1 ([facility]) [facility] [address] [facility] [address] 10/14/2019 12:00:00 AM EDT eCW1 ([facility] Resident [address] [place] [address] 10/14/2019 12:00:00 AM EDT eCW1 ([facility]) [facility] [address] [facility] [place] [address] 10/14/2019 12:00:00 AM EDT eCW1 ([facility]) Outpatient Referrer: Oliverio Mcbride MD 09/27/2019 10:58:00 AM EDT [facility] Outpatient Referrer: Oliverio Mcbride MD 09/23/2019 01:29:00 PM EST [facility] Outpatient Attender: Oliverio Mcbride MD Physical Therapy 09/22/2019 1 2:45:00 PM EST MEDENT ([facility]) [facility] [address] [facility] [address] 09/06/2019 12:00:00 AM EST eCW1 ([facility]) [facility] [address] [facility] [address] 08/31/2019 12:00:00 AM EST eCW1 ([facility]) OFFICE OUTPATIENT NEW 30 MINUTES Attender: Oliverio Mcbride MD Physic al Therapy 08/12/2019 09:45:00 AM EST MEDENT ([facility]) [facility] [address] [facility] [address] 08/10/2019 12:00:00 AM EST eCW1 ([facility]) [facility] [address] [address] 08/03/2019 12:00:00 AM EST eCW1 ([facility]) [facility] [address] [facility] [address] 07/27/2019 12:00:00 AM EST eCW1 ([facility]) Immunizations Vaccine Date Status Description Data Source(s) INFLUENZA VACCINE QUADRIVALENT (65 YR UP)/MF59 C.1/PF 04/17/2020 12:00:00 AM EDT completed [facility] pneumococcal polysaccharide PPV23 08/03/2019 09:49:00 AM EST comple chris eCW1 ([facility]) pneumococcal polysaccharide PPV23 08/03/2019 09:49:00 AM EST comple chris eCW1 ([facility]) pneumococcal polysaccharide PPV23 08/03/2019 09:49:00 AM EST comple chris eCW1 ([facility]) pneumococcal polysaccharide PPV23 08/03/2019 09:49:00 AM EST comple chris eCW1 ([facility]) Medications Medication Brand Name Start Date Product Form Dose Route Admi nistrative Instructions Pharmacy Instructions Status Indications Reaction Description Data Source(s) 5 mg 08/08/2020 12:00:00 AM EST tablet 60 TAKE ONE TABLET BY MOUTH TWICE A DAY TAKE ONE TABLET BY MOUTH TWICE A DAY SOLD: 09/07/2020 [facility] 5 mg 08/08/2020 12:00:00 AM EST tablet 60 TAKE ONE TABLET BY MOUTH TWICE A DAY TAKE ONE TABLET BY MOUTH TWICE A DAY SOLD: 08/08/2020 [facility] 60 mg 07/26/2020 12:00:00 AM EST capsule,delayed release (DR/EC) 90 TAKE ONE CAPSULE BY MOUTH EVERY DAY TAKE ONE CAPSULE BY MOUTH EVERY DAY SOLD: 07/28/2020 [facility] 30 mg 07/10/2020 12:00:00 AM EST capsule,delayed release (DR/EC) 30 TAKE ONE CAPSULE BY MOUTH EVERY DAY TAKE ONE CAPSULE BY MOUTH EVERY DAY SOLD: 07/11/2020 [facility] 0.05 % 07/10/2020 12:00:00 AM EST ointment 30 APPLY 1 APPLICATION TO HANDS TWO TIMES A DAY NEEDED APPLY 1 APPLICATION TO HANDS TWO TIMES A DAY NEEDED SOLD: 07/11/2020 [facility] benzonatate 200 MG Oral Capsule Benzonatate 04/28/2020 12:00:00 AM EDT ORAL active [facility] ([facility]) Amoxicillin 875 MG / Clavulanate 125 MG Oral Tablet Am oxicillin/Clavulanate Potassium 04/28/2020 12:00:00 AM EDT ORAL active [facility] ([facility], [facility]) 200 mg 04/28/2020 12:00:00 AM EDT capsule 15 TAKE ONE CAPSULE BY MOUTH EVERY 8 HOURS NEEDED FOR COUGHING TAKE ONE CAPSULE BY MOUTH EVERY 8 HOURS NEEDED FOR COUGHING SOLD: 04/28/2020 [facility] 875-125 mg 04/28/2020 12:00:00 AM EDT tablet 20 TAKE ONE TABLET BY MOUTH TWO TIMES A DAY FOR 10 DAYS TAKE ONE TABLET BY MOUTH TWO TIMES A DAY FOR 10 DAYS SOLD: 04/28/2020 [facility] 5 mg 04/26/2020 12:00:00 AM EDT tablet 60 TAKE ONE TABLET BY MOUTH TWICE A DAY TAKE ONE TABLET BY MOUTH TWICE A DAY SOLD: 07/02/2020 [facility] 5 mg 04/26/2020 12:00:00 AM EDT tablet 60 TAKE ONE TABLET BY MOUTH TWICE A DAY TAKE ONE TABLET BY MOUTH TWICE A DAY SOLD: 04/27/2020 [facility] 5 mg 04/26/2020 12:00:00 AM EDT tablet 60 TAKE ONE TABLET BY MOUTH TWICE A DAY TAKE ONE TABLET BY MOUTH TWICE A DAY SOLD: 06/02/2020 [facility] apixaban 5 MG Oral Tablet Apixaban (ELIQUIS) 5 MG TABS tablet Apixaban (ELIQUIS) 5 MG TABS tablet 04/25/2020 12:00:00 AM EDT 5 mg Oral active Paroxysmal atrial fibrillation Take 1 tablet (5 mg total) by mouth 2 (t wo) times a day [facility] Paroxysmal atrial fibrillation 0.3 mg/0.3 mL 04/19/2020 12:00:00 AM EDT auto-injector 2 INJECT DIRECTED NEEDED FOR BEE STINGS INJECT DIRECTED NEEDED FOR BEE STINGS SOLD: 04/22/2020 [facility] 5 mg 03/27/2020 12:00:00 AM EDT tablet 45 TAKE ONE-HALF TABLET BY MOUTH EVERY DAY TAKE ONE-HALF TABLET BY MOUTH EVERY DAY SOLD: 06/29/2020 [facility] 5 mg 03/27/2020 12:00:00 AM EDT tablet 45 TAKE ONE-HALF TABLET BY MOUTH EVERY DAY TAKE ONE-HALF TABLET BY MOUTH EVERY DAY SOLD: 03/31/2020 [facility] 25 mg 03/23/2020 12:00:00 AM EDT tablet extended release 24 hr 90 TAKE ONE TABLET BY MOUTH EVERY DAY NEEDED TAKE ONE TABLET BY MOUTH EVERY DAY NE EDED SOLD: 03/23/2020 [facility] 24 HR metoprolol succinate 25 MG Extende d Release Oral Tablet metoprolol succinate (TOPROL-XL) 25 MG 24 hr tablet metoprolol succinate (TOPROL-XL) 25 MG 24 hr tablet 03/23/2020 12:00:00 AM EDT 25 mg Oral activ e Take 1 tablet (25 mg total) by mouth as needed [facility] 30 mg 02/27/2020 12:00:00 AM EDT capsule,delayed release (DR/EC) 30 TAKE ONE CAPSULE BY MOUTH EVERY DAY TAKE ONE CAPSULE BY MOUTH EVERY DAY SOLD: 03/23/2020 [facility] 30 mg 02/27/2020 12:00:00 AM EDT capsule,delayed release (DR/EC) 30 TAKE ONE CAPSULE BY MOUTH EVERY DAY TAKE ONE CAPSULE BY MOUTH EVERY DAY SOLD: 02/28/2020 [facility] 30 mg 02/27/2020 12:00:00 AM EDT capsule,delayed release (DR/EC) 30 TAKE ONE CAPSULE BY MOUTH EVERY DAY TAKE ONE CAPSULE BY MOUTH EVERY DAY SOLD: 06/02/2020 [facility] 30 mg 02/27/2020 12:00:00 AM EDT capsule,delayed release (DR/EC) 30 TAKE ONE CAPSULE BY MOUTH EVERY DAY TAKE ONE CAPSULE BY MOUTH EVERY DAY SOLD: 05/01/2020 [facility] 5 mg 02/17/2020 12:00:00 AM EDT tablet 60 TAKE ONE TABLET BY MOUTH TWICE A DAY TAKE ONE TABLET BY MOUTH TWICE A DAY SOLD: 02/18/2020 [facility] 5 mg 02/17/2020 12:00:00 AM EDT tablet 60 TAKE ONE TABLET BY MOUTH TWICE A DAY TAKE ONE TABLET BY MOUTH TWICE A DAY SOLD: 03/23/2020 [facility] duloxetine 30 MG Delayed Release Oral Ca psule DULoxetine (CYMBALTA) 30 MG capsule DULoxetine (CYMBALTA) 30 MG capsule 01/19/2020 12:00:00 AM EDT 60 mg Oral active Take 60 mg by mouth daily [facility] 15 mg 01/03/2020 12:00:00 AM EDT tablet 90 TAKE ONE TABLET BY MOUTH EVERY DAY NEEDED FOR ARTHRITIS TAKE ONE TABLET BY MOUTH EVERY DAY NE EDED FOR ARTHRITIS SOLD: 06/29/2020 [facility] 15 mg 01/03/2020 12:00:00 AM EDT tablet 90 TAKE ONE TABLET BY MOUTH EVERY DAY NEEDED FOR ARTHRITIS TAKE ONE TABLET BY MOUTH EVERY DAY NE EDED FOR ARTHRITIS SOLD: 03/31/2020 [facility] 40 mg 01/03/2020 12:00:00 AM EDT tablet 90 TAKE ONE TABLET BY MOUTH EVERY EVENING TAKE ONE TABLET BY MOUTH EVERY EVENING SOLD: 06/29/2020 [facility] 40 mg 01/03/2020 12:00:00 AM EDT tablet 90 TAKE ONE TABLET BY MOUTH EVERY EVENING TAKE ONE TABLET BY MOUTH EVERY EVENING SOLD: 01/08/2020 [facility] 15 mg 01/03/2020 12:00:00 AM EDT tablet 90 TAKE ONE TABLET BY MOUTH EVERY DAY NEEDED FOR ARTHRITIS TAKE ONE TABLET BY MOUTH EVERY DAY NE EDED FOR ARTHRITIS SOLD: 01/08/2020 [facility] 40 mg 01/03/2020 12:00:00 AM EDT tablet 90 TAKE ONE TABLET BY MOUTH EVERY EVENING TAKE ONE TABLET BY MOUTH EVERY EVENING SOLD: 03/31/2020 [facility] meloxicam 15 MG Oral Tablet meloxicam (MOBIC) 15 MG ta blet meloxicam (MOBIC) 15 MG tablet 01/02/2020 12:00:00 AM EDT 1 {tbl} Oral active Take 1 tablet by mouth daily [facility] fluticasone (FLONASE) 50 MCG/ACT nasal spray 0605-1948-64 12/21/2019 12:00:00 AM EDT active [facility] 50 mcg/actuation 12/21/2019 12:00:00 AM EDT spray,suspension 16 SPRAY 2 SPRAYS IN EACH NOSTRIL TWO TIMES A DAY FOR FIRST WEEK THEN REDUCE TO 1 SPRAY TWO TIMES A DAY SPRAY 2 SPRAYS IN EACH NOSTRIL TWO TIMES A DAY FOR FIRST WEEK THEN REDUCE TO 1 SPRAY TWO TIMES A DAY SOLD: 12/22/2019 [facility] Fluticasone Propionate Nasal [place] Fluticasone Propionate Na bobby [place] 12/21/2019 12:00:00 AM EDT active [facility] ([facility], [facility]) Nasal Cleanse Rinse Mix 12/21/2019 12:00:00 AM EDT active [facility] ([facility], [facility]) Fexofenadine hydrochloride 180 MG Oral Tablet Fexofenadine H CL 12/21/2019 12:00:00 AM EDT ORAL active [facility] ([facility], [facility]) 100 mg 08/20/2019 12:00:00 AM EST capsule 270 TAKE ONE CAPSULE BY MOUTH THREE TIMES A DAY ON EMPTY STOMACH TAKE ONE CAPSULE BY MOUTH THREE TIMES A DAY ON EMPTY STOMACH SOLD: 08/22/2019 [facility] 50 mg 08/11/2019 12:00:00 AM EST tablet extended release 24 hr 30 TAKE ONE TABLET BY MOUTH EVERY DAY TAKE ONE TABLET BY MOUTH EVERY DAY SOLD: 09/24/2019 [facility] 50 mg 08/11/2019 12:00:00 AM EST tablet extended release 24 hr 30 TAKE ONE TABLET BY MOUTH EVERY DAY TAKE ONE TABLET BY MOUTH EVERY DAY SOLD: 08/12/2019 [facility] 24 HR mirabegron 50 MG Extended Release Oral Tablet [M yrbetriq] Myrbetriq 50 MG Myrbetriq 50 MG 08/10/2019 12:00:00 AM EST active 1 tablet eCW1 ([facility]) 24 HR mirabegron 50 MG Extended Release Oral Tablet [M yrbetriq] Myrbetriq 50 MG Myrbetriq 50 MG 08/10/2019 12:00:00 AM EST active 1 tablet eCW1 ([facility]) 24 HR mirabegron 50 MG Extended Release Oral Tablet [M yrbetriq] Myrbetriq 50 MG Myrbetriq 50 MG 08/10/2019 12:00:00 AM EST 1.0 {tablet} active Myrbetriq 50 MG eCW1 ([facility]) 24 HR mirabegron 50 MG Extended Release Oral Tablet [M yrbetriq] Myrbetriq 50 MG Myrbetriq 50 MG 08/10/2019 12:00:00 AM EST active 1 tablet eCW1 ([facility]) Duloxetine HCl 30 MG UNK 08/03/2019 12:00:00 AM EST active 1 capsule eCW1 ([facility]) 30 mg 08/03/2019 12:00:00 AM EST capsule,delayed release (DR/EC) 30 TAKE ONE CAPSULE BY MOUTH EVERY DAY TAKE ONE CAPSULE BY MOUTH EVERY DAY SOLD: 01/21/2020 [facility] Oxybutynin Chloride 5 MG UNK 08/03/2019 12:00:00 AM EST active 1 tablet eCW1 ([facility]) 30 mg 08/03/2019 12:00:00 AM EST capsule,delayed release (DR/EC) 30 TAKE ONE CAPSULE BY MOUTH EVERY DAY TAKE ONE CAPSULE BY MOUTH EVERY DAY SOLD: 12/18/2019 [facility] 30 mg 08/03/2019 12:00:00 AM EST capsule,delayed release (DR/EC) 30 TAKE ONE CAPSULE BY MOUTH EVERY DAY TAKE ONE CAPSULE BY MOUTH EVERY DAY SOLD: 10/13/2019 [facility] duloxetine 30 MG Delayed Release Oral Capsule Duloxeti ne HCl 30 MG Duloxetine HCl 30 MG 08/03/2019 12:00:00 AM EST 1.0 {capsule} a ctive Duloxetine HCl 30 MG eCW1 ([facility]) 30 mg 08/03/2019 12:00:00 AM EST capsule,delayed release (DR/EC) 30 TAKE ONE CAPSULE BY MOUTH EVERY DAY TAKE ONE CAPSULE BY MOUTH EVERY DAY SOLD: 11/12/2019 [facility] duloxetine 30 MG Delayed Release Oral Capsule Duloxeti ne HCl 30 MG Duloxetine HCl 30 MG 08/03/2019 12:00:00 AM EST active 1 capsule eCW1 ([facility]) duloxetine 30 MG Delayed Release Oral Capsule Duloxeti ne HCl 30 MG Duloxetine HCl 30 MG 08/03/2019 12:00:00 AM EST active 1 capsule eCW1 ([facility]) Oxybutynin chloride 5 MG Oral Tablet OXYBUTYNIN CHLORIDE 12:00:00 AM EST tablet 60 TAKE ONE TABLET BY MOUTH TWI CE A DAY TAKE ONE TABLET BY MOUTH TWICE A DAY SOLD: 08/03/2019 [facility] duloxetine 30 MG Delayed Release Oral Capsule Duloxeti ne HCl 30 MG Duloxetine HCl 30 MG 08/03/2019 12:00:00 AM EST active 1 capsule eCW1 ([facility]) 30 mg 08/03/2019 12:00:00 AM EST capsule,delayed release (DR/EC) 30 TAKE ONE CAPSULE BY MOUTH EVERY DAY TAKE ONE CAPSULE BY MOUTH EVERY DAY SOLD: 09/05/2019 [facility] 30 mg 08/03/2019 12:00:00 AM EST capsule,delayed release (DR/EC) 30 TAKE ONE CAPSULE BY MOUTH EVERY DAY TAKE ONE CAPSULE BY MOUTH EVERY DAY SOLD: 08/03/2019 [facility] 100 mg 06/07/2019 12:00:00 AM EST capsule 90 TAKE ONE CAPSULE BY MOUTH THREE TIMES A DAY ON EMPTY STOMACH TAKE ONE CAPSULE BY MOUTH THREE TIMES A DAY ON EMPTY STOMACH SOLD: 07/21/2019 [facility] 5 mg 04/04/2019 12:00:00 AM EDT tablet 45 TAKE ONE-HALF TABLET BY MOUTH EVERY DAY TAKE ONE-HALF TABLET BY MOUTH EVERY DAY SOLD: 01/08/2020 [facility] 5 mg 04/04/2019 12:00:00 AM EDT tablet 45 TAKE ONE-HALF TABLET BY MOUTH EVERY DAY TAKE ONE-HALF TABLET BY MOUTH EVERY DAY SOLD: 10/09/2019 [facility] 40 mg 01/29/2019 12:00:00 AM EDT tablet 90 TAKE 1 TABLET BY MOUTH IN THE EVENING TAKE 1 TABLET BY MOUTH IN THE EVENING SOLD: 10/09/2019 [facility] 15 mg 01/04/2019 12:00:00 AM EDT tablet 90 TAKE ONE TABLET BY MOUTH EVERY DAY NEEDED FOR ARTHRITIS TAKE ONE TABLET BY MOUTH EVERY DAY NE EDED FOR ARTHRITIS SOLD: 10/09/2019 [facility] 0.05 % 12/20/2018 12:00:00 AM EDT ointment 45 APPLY TO AFFECTED AREA(S) ON HANDS TWO TIMES A DAY NEEDED APPLY TO AFFECTED AREA(S) ON HANDS TWO T IMES A DAY NEEDED SOLD: 11/28/2019 [facility] Insurance Providers Payer name Policy type / Coverage type Policy ID Covered constitution party ID Covered constitution party's relationship to amanda Policy Amanda Plan Information WELLCARE [id number] SP [id number] WELLCARE O [id number] O [id number] WELLCARE MEDICARE [id number] Jessa [id number] WELLCARE MEDICARE [id number] WELLCARE MEDICARE O G [id number] Self [id number] WELLCARE [id number] SP [id number] WELLCARE O [id number] S [id number] [facility]-Health Maintenance Organization ( O) [id number] ANSI-Health Maintenance Organization ( O) [id number] ANSI-Health Maintenance Organization ( O) [id number] ANSI-Health Maintenance Organization ( O) [id number] ANSI-Medicare Part B [id number] ANS-Health Maintenance Organization ( O) [id number] ANSI-Medicare Part B [id number] [facility]-Health Maintenance Organization ( O) [id number] ANSI-Medicare Part B [id number] ANSI-Medicare Part B [id number] ANSI-Medicare Part B [id number] [facility]-Health Maintenance Organization ( O) [id number] ANSI-Medicare Part B [id number] [employer] [place] [id number] [place] [id number] ANSI-Medicare Part B [id number] ANSI-Medicare Part B [id number] [facility]-Health Maintenance Organization ( O) [id number] ANSI-Medicare Part B [id number] ANSI-Medicare Part B [id number] ANSI-Health Maintenance Organization ( O) [id number] ANSI-Health Maintenance Organization ( O) [id number] ANSI-Medicare Part B [id number] ANSI-Medicare Part B [id number] [facility] [id number] [place] [id number] ANSI-Medicare Part B [id number] ANSI-Medicare Part B [id number] ANSI-Medicare Part B [id number] ANSI-Medicare Part B [id number] ANSI-Medicare Part B [id number] ANSI-Medicare Part B [id number] [employer] OPTIONS [id number] SP [id number] ANSI-Medicare Part B [id number] ANSI-Medicare Part B [id number] ANSI-Medicare Part B [id number] ANSI-Medicare Part B [id number] ANSI-Medicare Part B [id number] ANSI-Medicare Part B [id number] Today's Option Medicare Commercial [id number] Self [id number] [employer] OPTIONS [id number] SP [id number] ANSI-Medicare Part B [id number] ANSI-Medicare Part B [id number] ANSI-Medicare Part B [id number] ANSI-Medicare Part B [id number] ANSI-Medicare Part B [id number] ANSI-Medicare Part B [id number] ANSI-Medicare Part B [id number] ANSI-Medicare Part B [id number] ANSI-Medicare Part B [id number] ANSI-Medicare Part B [id number] ANSI-Medicare Part B [id number] ANSI-Medicare Part B [id number] ANSI-Medicare Part B [id number] ANSI-Medicare Part B [id number] ANSI-Medicare Part B [id number] ANSI-Medicare Part B [id number] ANSI-Medicare Part B [id number] ANSI-Medicare Part B [id number] Today's Option Medicare Commercial [id number] Self [id number] [employer] [place] [id number] SP [id number] TODAYS OPTIONS [id number] SP [id number] Today's Options Medicare Commercial [id number] Self [id number] Today's Option Medicare Commercial [id number] Self [id number] MEDICARE BLUE PPO 306 [id number] SP [id number] BS Medicare Blue Ppo/Hmo Commercial Self [place] PPO 302/307 [id number] SP [id number] [place] PPO 302/307 [id number] SP [id number] Medicare Natl Gov't Servi Medicare Primary Self [facility] S [id number] S VYS [id number] [facility] S [id number] S VYS [id number] MEDICARE P [id number] S [id number] A MEDICARE [id number] SP [id number] A [id number] Problems, Conditions, and Diagnoses Code Display Name Description Problem Type Effective Dates Data Source(s) R01.1 Systolic murmur Systolic murmur [id number] 02/17/2020 12:0 0:00 AM EDT [facility] I48.0 Paroxysmal atrial fibrillation Paroxysmal atrial fibri llation [id number] 02/17/2020 12:00:00 AM EDT [facility] I10 HTN (hypertension) HTN (hypertension) [id number] 0 12:00:00 AM EDT [facility] E78.5 Hyperlipidemia Hyperlipidemia [id number] 02/17/2020 12:00: 00 AM EDT [facility] [id number] Pure hypercholesterolemia Pure hypercholesterolemia Pr oblem 08/12/2019 12:00:00 AM EST [facility] ([facility]) R01.1 Cardiac murmur, unspecified Cardiac murmur, unspecifie d Diagnosis 06/26/2020 02:56:51 PM EST [facility] I48.0 Paroxysmal atrial fibrillation Paroxysmal atrial fibri llation Diagnosis 06/26/2020 02:56:51 PM EST [facility] I10 Essential (primary) hypertension Essential (primary) h ypertension Diagnosis 06/26/2020 02:56:51 PM EST [facility] E78.5 Hyperlipidemia, unspecified Hyperlipidemia, unspecifie d Diagnosis 06/26/2020 02:56:51 PM EST [facility] I25.10 Atherosclerotic heart diseas e of [place] coronary artery without angina pectoris Atherosclerotic heart disease of [place] Diagnosis 06/26/2020 02:56:51 PM EST [facility] I48.91 Unspecified atrial fibrillation Unspecified atri al fibrillation Diagnosis 02/17/2020 01:51:23 PM EDT [facility] Surgeries/Procedures Procedure Description Date Indications Data Source(s) X-Ray Hips Bilateral With Pelvis 3-4 Views 09/03/2020 12:00:00 AM EST [facility] ([facility] ) ARTHROCENTESIS ASPIR&/INJECTION MAJOR JT/BURSA 12:00:00 AM EDT [facility] ([facility] ) BLOOD COUNT COMPLETE AUTO&AUTO DIFRNTL WBC COUNT CBC AND DIFFER ENTIAL Routine 04/12/2020 04/12/2020 12:00:00 AM EDT [facility] THYROID STIMULATING HORMONE TSH TSH Routine 04/12/2020 04/12/2020 12:00:00 AM EDT [facility] BASIC METABOLIC PANEL CALCIUM TOTAL BASIC METABOLIC PANEL Routine 04/12/2020 04/12/2020 12:00:00 AM EDT [facility] Office Visit, Est Pt., Level 2 FC 12/05/2019 12:00:00 AM EDT eCW1 ([facility]) Office Visit, Est Pt., Level 3 PC 12/05/2019 12:00:00 AM EDT eCW1 ([facility]) Office Visit, Est Pt., Level 4 PC 10/14/2019 12:00:00 AM EDT eCW1 ([facility]) Office Visit, Est Pt., Level 3 FC 10/14/2019 12:00:00 AM EDT eCW1 ([facility]) THERAPEUTIC PX 1/> AREAS EACH 15 MIN EXERCISES 12:00:00 AM EDT [facility] ([facility] ) MANUAL THERAPY TQS 1/> REGIONS EACH 15 MINUTES 12:00:00 AM EDT [facility] ([facility] ) THERAPEUTIC PX 1/> AREAS EACH 15 MIN EXERCISES 12:00:00 AM EDT [facility] ([facility] ) MANUAL THERAPY TQS 1/> REGIONS EACH 15 MINUTES 12:00:00 AM EDT [facility] ([facility] ) ARTHROCENTESIS ASPIR&/INJECTION MAJOR JT/BURSA 12:00:00 AM EST [facility] ([facility] ) THERAPEUTIC PX 1/> AREAS EACH 15 MIN EXERCISES 12:00:00 AM EST [facility] ([facility] ) MANUAL THERAPY TQS 1/> REGIONS EACH 15 MINUTES 12:00:00 AM EST [facility] ([facility] ) THERAPEUTIC PX 1/> AREAS EACH 15 MIN EXERCISES 12:00:00 AM EST [facility] ([facility]) MANUAL THERAPY TQS 1/> REGIONS EACH 15 MINUTES 12:00:00 AM EST [facility] ([facility] ) Physical Therapy Eval - Low Complexity 09/06/2019 12:0 0:00 AM EST [facility] ([facility]) ARTHROCENTESIS ASPIR&/INJECTION MAJOR JT/BURSA 12:00:00 AM EST [facility] ([facility]) X-Ray Hips Bilateral With Pelvis 3-4 Views 08/12/2019 12:00:00 AM EST [facility] ([facility]) Annual wellness visit, includes a person alized prevention plan of service (pps), subsequent visit 08/03/2019 12:00:00 AM EST eCW 1 ([facility]) Pneumococcal Adult 0.5mL (Pneumovax 23) 08/03/2019 12: 00:00 AM EST eCW1 ([facility]) Administration of pneumococcal vaccine 08/03/2019 12:0 0:00 AM EST eCW1 ([facility]) Results ID Date Data Source [id number] 08/16/2020 12:00:00 AM EST [facility] Ras Singh MD Patient Name: JAELYN [id number] [facility] Date of : 1945[facility] Date of Exam: 08/16/2020[place] [id number]#: Fax: [phone] EXAM: MAMMO SCREENING WITH CADCLINICAL INFORMATION: Screening.Comparison is 09/22/2018 as well as other prior exams.Family history of niece of ovarian cancer at age 42 and grandmother withovarian cancer age 78.Based on the personal and family history information your patient suppliedat the time of imaging, her lifetime risk of breast cancer estimated by theTyrer-Cuzick model is 2.6%. Given that this patient has less than 20% TCrisk score, no further medical management is currently recommended at thistime.Digital screening (2D) mammography was performed bilaterally.Additionally, breast tomosynthesis (3D mammography) was performedbilaterally in the CC and MLO projections and compared to the priorexam(s).There has been no change in appearance of the mammogram from studies.There is a mild amount of residual fibroglandular tissue remaining, whichis fairly symmetric. There has been no interval development of dominantmasses, areas of structural distortion, or clusters of microcalcificationstypical of malignancy. Large coarse calcifications are present, of noclinical significance. Scattered lymph nodes are seen in the axilla.The Volpara volumetric breast density category is B, there are scatteredareas of fibroglandular density.IMPRESSION:BI-RADS Category 1 - Negative Mammogram. Currently no mammographicevidence of malignancy. Routine followup is recommended in one year.This mammogram was read with the assistance of [facility], an FDAapproved computer aided detection system for mammography.Negative x-ray reports should not delay surgical consultation if a dominantor clinically suspicious mass is present.Not all breast cancers can be identified by mammography. Therefore, werecommend that you continue to perform regular breast self-examination andphysical examination and then promptly contact your physician of anyconcerns or changes.Adenosis and dense breasts may obscure an underlying neoplasm.The patient states that a clinical breast examination was over a year ago.BECCA Jones/Chela you for referring LAUREN BOLTON to our office.Electronically Signed - ANDREA JOHNSON MD 08/29/20 17:54 Name Value Range Interpretation Code Description Data Mariza rce(s) Supporting Document(s) ID Date Data Source [id number] 05/10/2020 12:00:00 AM EDT [facility] Oliverio Mcbride MD Patient Name: JAELYN [id number] [facility] 1945[facility] [place] [address] Date of Exam: 05/10/2020#: Fax: [phone] EXAM: ARTHROCENTESIS RTHIP-ASPIR / INJ STEROID/PAIN MEDSRIGHT HIP INJECTION:The procedure was performed by LISA Knight under the generalsupervision of Dr. Johnson.The benefits and risks including, but not limited to pain, infection,bleeding, and anaphylaxis were explained to the patient and informedconsent was obtained.The right femoral neck was localized using fluoroscopic guidance. The skinwas prepped and draped in a sterile fashion. 1% Lidocaine was used as alocal anesthetic. Using fluoroscopic guidance, a #22 gauge spinal needlewas inserted and advanced to the femoral neck. 0.5 cc of Omnipaque 300 wasinjected to verify placement. 6 cc of a solution containing 5 cc of 1%Lidocaine and 1 cc of Kenalog 40 mg was injected into the joint space. Theneedle was then removed.The patient tolerated the procedure well and there were no immediatecomplications.Fluoroscopy time was 2 seconds at 3 pulses/second. This is equal to 0.5seconds continuous fluoroscopy time which is a 75% reduction in radiation.BECCA Jones/Chela rollins for referring LAUREN BOLTON to our office. Electronically Signed - ANDREA JOHNSON MD 05/15/20 18:02 Name Value Range Interpretation Code Description Data Mariza rce(s) Supporting Document(s) ID Date Data Source [id number] 05/10/2020 12:00:00 AM EDT [facility] Oliverio Mcbride MD Patient Name: JAELYN [id number] [facility] Date of : 1945[place] [address] Date of Exam: 05/10/2020#: Fax: [phone] EXAM: ARTHROCENTESIS RTHIP-ASPIR / INJ STEROID/PAIN MEDSRIGHT HIP INJECTION:The procedure was performed by LISA Knight under the generalsupervision of Dr. Johnson.The benefits and risks including, but not limited to pain, infection,bleeding, and anaphylaxis were explained to the patient and informedconsent was obtained.The right femoral neck was localized using fluoroscopic guidance. The skinwas prepped and draped in a sterile fashion. 1% Lidocaine was used as alocal anesthetic. Using fluoroscopic guidance, a #22 gauge spinal needlewas inserted and advanced to the femoral neck. 0.5 cc of Omnipaque 300 wasinjected to verify placement. 6 cc of a solution containing 5 cc of 1%Lidocaine and 1 cc of Kenalog 40 mg was injected into the joint space. Theneedle was then removed.The patient tolerated the procedure well and there were no immediatecomplications.Fluoroscopy time was 2 seconds at 3 pulses/second. This is equal to 0.5seconds continuous fluoroscopy time which is a 75% reduction in radiation.BECCA Jones/Chela rollins for referring LAUREN BOLTON to our office. Electronically Signed - ANDREA JOHNSON MD 05/15/20 18:02 Name Value Range Interpretation Code Description Data Mariza rce(s) Supporting Document(s) ID Date Data Source [id number] 03/26/2020 07:10:53 PM EDT [facility] Name Value Range Interpretation Code Description Data Mariza rce(s) Supporting Document(s) &PDF [facility] WZCKEk6xVaVDYwHp57/KIJsaEKGch6DtQBvxLDh9ZLgqIRHnH8PstRumOVUWUBZTI18qJk4DGNpGAlRC vci [file] AgICAgICAgICAgICAgICAgICAgICAgICAgICAgICAg ICAgICAgICAgICAgICAgICAgICAgICAgICAgICAgICANCiAgICAgICAgICAgICAgICAgICAgICAgICAg ICAgICAgICAgICAgICAgICAgICAgICAgICAgICAgICAgICAgICAgICAgICAgICAgICAgICAgICAgICAg ICAgICAgICAgICAgICANCiAgICAgICAgICAgICAgIC AgICAgICAgICAgICAgICAgICAgICAgICAgICAgICAgICAgICAgICAgICAgICAgICAgICAgICAgICAgIC AgICAgICAgICAgICAgICAgICAgICAgICANCiAgICAgICAgICAgICAgICAgICAgICAgICAgICAgICAgIC AgICAgICAgICAgICAgICAgICAgICAgICAgICAgICAg ICAgICAgICAgICAgICAgICAgICAgICAgICAgICAgICAgICANCiAgICAgICAgICAgICAgICAgICAgICAg ICAgICAgICAgICAgICAgICAgICAgICAgICAgICAgICAgICAgICAgICAgICAgICAgICAgICAgICAgICAg ICAgICAgICAgICAgICAgICANCiAgICAgICAgICAgIC AgICAgICAgICAgICAgICAgICAgICAgICAgICAgICAgICAgICAgICAgICAgICAgICAgICAgICAgICAgIC AgICAgICAgICAgICAgICAgICAgICAgICAgICANCiAgICAgICAgICAgICAgICAgICAgICAgICAgICAgIC AgICAgICAgICAgICAgICAgICAgICAgICAgICAgICAg ICAgICAgICAgICAgICAgICAgICAgICAgICAgICAgICAgICAgICANCiAgICAgICAgICAgICAgICAgICAg ICAgICAgICAgICAgICAgICAgICAgICAgICAgICAgICAgICAgICAgICAgICAgICAgICAgICAgICAgICAg ICAgICAgICAgICAgICAgICAgICANCiAgICAgICAgIC AgICAgICAgICAgICAgICAgICAgICAgICAgICAgICAgICAgICAgICAgICAgICAgICAgICAgICAgICAgIC AgICAgICAgICAgICAgICAgICAgICAgICAgICAgICANCiAgICAgICAgICAgICAgICAgICAgICAgICAgIC AgICAgICAgICAgICAgICAgICAgICAgICAgICAgICAg ICAgICAgICAgICAgICAgICAgICAgICAgICAgICAgICAgICAgICAgICANCjw/jQBsP2lwoVXgtbQ4Y7zr Fb4BBk3QJW5hc8QiBBTmZYfhahWlAsbQStMmWCYkZkfWWfm0RPjkBM4KvSIqB2WyS4EiVExkJX3JGNQp FEKwqPOkNAEwLPIgDlX5DPVdTPebSC2HuIBhAEkqRQ IsSMYgWK0YXLHiZ207nfCwTY6ZDa7YThLoAN0qwo1OWHsvPLHvRzuSSum0LQszNH8VnWUwV9OmnFTkn6 tFNpMyL8YQXRE0SNPhMf0MXTBhYbHzBFQnGIpyQW0pJRVuZMFCqUcifpF7LM0UZJ7ldeKzCI4BUiXkUv 6hXt6VXbApN9RrL5FvVULaBGWAXBljUI0NJPYoOUL0 EMCsGZUqIXQHGgClQ81cSZ4DP8Lfk79oEiT9OOEdSrPbZNgpGX58rAblyrMhlKJtpGngBZ1CHn5+DQpl lsCwJecUGjnmAFTDRrHkElKTLkLsZSSvZXWzKTSfQxS1GuRnOd1YECRbXBQxFHKcJnMwBUZuLWXrQWqt WLGnSDN8EdP7WWKwPGNeAJ0UEaVtIRIyWYznIYYeRE BoQMAria1PVZMoZXArXJZ6YcRfUNNmVRZdOKkyBBYoXBYiFcJrTOPbPPDuKQ2XNrWuIULuYIW0KRewRK XuVQBcgp3ZYNDqOUZrNlDyBdNzADQoFYGxBZdeEZHaRQRvRbKkXACkOVXmHW3VHqIrTFJgEYT7ZTEoEC HaJBVkgd7FQQQcBUKiCIr8OIKlFMYmWZFiFGlvYDZk JTH7HSZzQXBdLTCpVN6SYiAcWMLtNHCiNoudXMNoHSBmue7ANQDyFLGwIkI4XnVfHBVcKEQbVYsbECVy UYI7Mog4AKDbKLOsWF3FZrYcMNXzVWR2XrZuRFZvTJBhnq6CEZTqKMVyHkF8NBZaVPFePCOeOFuxGMPn IGM2VruvCYKxHGGdUJ7JHeYmWRJzWMN7FPLwGCXfSL Zfkf7JMWHsACHqSyC9GCDqEXPzRGZtPBd3cbAdcAXdBHf2WO5YI4NcxsYrSzUYCd8Ta869YUQ3ANWnRh 9VQ4pfCy7sBSGrJPGACf9RJLk0OscpIpM4FPZuIGQhJzDsVaL2JRSgLFfmLGp5RXz6OAC+IDxmOGViZj DtF0OvEeXpDYVqCcbwNzL5WUIrCXq9WIWxDa4jXE ANCj4+YNlpiPUlmFrqDAJTNeF1GoC3TDxyAYYGPa5V ID Date Data Source [id number] 03/23/2020 04:22:25 PM EDT [facility] Name Value Range Interpretation Code Description Data Mariza rce(s) Supporting Document(s) &PDF [facility] VQEREy5eFeWVIjRt57/PEZqyNFAjc2GjGVleXZr6JBhaXLIgU6DifZoaDNTVGOEPM78kIb4MYVqXKqMV vci [file] ICAgICAgICAgICAgICAgICAgICAgICAgICAgICAgIC AgICAgICAgICAgICAgICAgICAgICAgICAgICAgICAgICAgICAgICAgICAgICAgDQogICAgICAgICAgIC AgICAgICAgICAgICAgICAgICAgICAgICAgICAgICAgICAgICAgICAgICAgICAgICAgICAgICAgICAgIC AgICAgICAgICAgICAgICAgICAgICAgICAgICAgDQog ICAgICAgICAgICAgICAgICAgICAgICAgICAgICAgICAgICAgICAgICAgICAgICAgICAgICAgICAgICAg ICAgICAgICAgICAgICAgICAgICAgICAgICAgICAgICAgICAgICAgDQogICAgICAgICAgICAgICAgICAg ICAgICAgICAgICAgICAgICAgICAgICAgICAgICAgIC AgICAgICAgICAgICAgICAgICAgICAgICAgICAgICAgICAgICAgICAgICAgICAgICAgDQogICAgICAgIC AgICAgICAgICAgICAgICAgICAgICAgICAgICAgICAgICAgICAgICAgICAgICAgICAgICAgICAgICAgIC AgICAgICAgICAgICAgICAgICAgICAgICAgICAgICAg DQogICAgICAgICAgICAgICAgICAgICAgICAgICAgICAgICAgICAgICAgICAgICAgICAgICAgICAgICAg ICAgICAgICAgICAgICAgICAgICAgICAgICAgICAgICAgICAgICAgICAgDQogICAgICAgICAgICAgICAg ICAgICAgICAgICAgICAgICAgICAgICAgICAgICAgIC AgICAgICAgICAgICAgICAgICAgICAgICAgICAgICAgICAgICAgICAgICAgICAgICAgICAgDQogICAgIC AgICAgICAgICAgICAgICAgICAgICAgICAgICAgICAgICAgICAgICAgICAgICAgICAgICAgICAgICAgIC AgICAgICAgICAgICAgICAgICAgICAgICAgICAgICAg ICAgDQogICAgICAgICAgICAgICAgICAgICAgICAgICAgICAgICAgICAgICAgICAgICAgICAgICAgICAg ICAgICAgICAgICAgICAgICAgICAgICAgICAgICAgICAgICAgICAgICAgICAgDQogICAgICAgICAgICAg ICAgICAgICAgICAgICAgICAgICAgICAgICAgICAgIC HvNLBvDRDzTBTlWLEsLTGhQGZcVGWgLTHlXDIkFYAgRCWhDVZuEFUkGYTvGATlFBBgDIYqKPYgQRt3N2 pbRPDhNAKsYL2lBWb1Up6+ILqJXpAkHWF6foPpoO1AFG2jj2VlGZflPBNsa7SyAXg7AR9XFGQaFQqrWU 8PHWlcfl2EKKFjJZPnwGPMh4bdHzHzPHR4VXZzWhbp PK3FQNLkE6trzxJcKDFzYYJLXMrbCIYALJ6EDfTjD1DbjL45EMFARg7+DEgwuyFxRjoRQgNjSQRgl7Qf GBx5XU1KQYZrDUqaBS8GXVBvpF6oGMcrIO7KLoCqSVIxVUSFVhCxO20xvLMtTAz9Y4HyPmKpHCAlBfvp ZXMgPDwvTmFtZXMgWyBdDQogID4+ID4+ZRjyMM2TOL tthxDbKHXoWs4AQCLwMQA3MACdzRWkToKjVSPTQInsSU7OrNEbDOZ2lT7eXEziOQKzTAQlP6pEKfMnyZ ciAL25zHmdndYmmSKyQMe+Zj9OUN9xm3DbDDo0akWdZIgjZCJaAUwuYGJbWVKjEJFbVTM8VMU8SXYLXn AhHPVfGOIhYDlcBNJgWYQgii1YALOdDYOzEZSiYDUi FPWlBXFvQAykWYGpNSMlUcN9ORWzMBAjBF2LUuRbCJIbBOLaJHHzUSVzFSNvsg0JWQAjIQCwBeNoLyFs SIBeQUSpRTtoGXQdQWQyCSFbJAWwIVCrGW8ZWbIhHDOhONZ9AwAfCJXxEWRkyp2GXVNfYJZnSOohRKBl KPEcZDXpLLeaSDHuEQP9Jlq6CXQeZJBcLS7YScPdGK GvOJF8YYXyCODwPYUjdy9TDHUzIOBpHaF3HOGkJCBwZPUkMAbpNURzOHF8CFI3TCLuHYXbCM5CPzAzUM GsSAgcRaJiRFKvOXMdzn4XFPRwNFHvYPEdJXEvUOJwPAHyMCpyETEoZMU0UcmqJFJdTMKeLQ2GLhRnVZ WeUVk1ISJqSWZsGLHerm0KREQtBYLgTXe6GVNfGWNo BVHuKZudDFSaAIN6TFSwLNGgBZHtCK5XEoEqGEFwTNn1SpqbIVZgQKIunn8QMQQaBHJqWVugCPBbDAEr KRQoPSjeTLCmJFQrEbPaGDHlYINjBM6OYlFkJBexJRMWAib6CBmrV5g3GOFsVd7SY4Uhk1JdNsDpTCYB NTshPF9egnLvJAGdOk1II9rUIoqsLJWbAyO6JkTwET BpD7KcUDAvWNN4MHFhAnPvDOqaJF4xRIOpGxLoIRXmHYOrWHIiXjXjJvH6DVwtMLVnNYU1TSF1YfWcVC 1IIb8EAfN9QRM0tVIxFk8TRnH6LQYRKiVoBG1ZCLl= ID Date Data Source [id number] 02/24/2020 10:30:49 AM EDT [facility] Name Value Range Interpretation Code Description Data Mariza rce(s) Supporting Document(s) &PDF [facility] KAFJPc8mJrDMTkSx45/LWGbeINQsm4LlNNuwPYt1IJgwBZRvG7ZwzBewTAFFNLHPQ30mWu2MVYpUMaWY vci qLjWneWAX2x9BjeTUaY49gqM8iFHWnp73qUQplFC6+DQplbmRvYmoNCjQgMCBvYmoNCiAgPDwvRmlsdG IgBK4MiVG2VZVvW15uTTGxGASlZ1YvHASfCVg+Ia4BRGNqlNLrQJ9NSupC0TqwsvA2NU8/6f4HS/dwnE Qb2+y7YnirkVGlgeU8PrpEVdHwsANW0dvBaDnop8hl TqCaI0ILCzy2FGjDNpir+iS2pTtDtANS67SaAiQMEc96/xqnWpyMxO+/icW0QM+cSj8EVjlcMq2txawH rJJEtZFiqlw8ckFgDSNi7m5x2mHXsfjnjp3Uc/qx7OYaIllckfmr3fSyVGjZOs3JuDUt2PclUz5Avs2R B189whTV3+4a0y27lpl265j4dgqeOh7to+5uVHw2hj [file] ICAgICAgICAgICAgICAgICAgICAgICAgICAgICAgICAgICAgICAgICAgICAgICAgICAgICAgICAgICAg ICAgICAgICAgICAgICAgICAgICAgICAgICAgICAgICAgICAgDQogICAgICAgICAgICAgICAgICAgICAg ICAgICAgICAgICAgICAgICAgICAgICAgICAgICAgIC AgICAgICAgICAgICAgICAgICAgICAgICAgICAgICAgICAgICAgICAgICAgICAgDQogICAgICAgICAgIC AgICAgICAgICAgICAgICAgICAgICAgICAgICAgICAgICAgICAgICAgICAgICAgICAgICAgICAgICAgIC AgICAgICAgICAgICAgICAgICAgICAgICAgICAgDQog ICAgICAgICAgICAgICAgICAgICAgICAgICAgICAgICAgICAgICAgICAgICAgICAgICAgICAgICAgICAg ICAgICAgICAgICAgICAgICAgICAgICAgICAgICAgICAgICAgICAgDQogICAgICAgICAgICAgICAgICAg ICAgICAgICAgICAgICAgICAgICAgICAgICAgICAgIC AgICAgICAgICAgICAgICAgICAgICAgICAgICAgICAgICAgICAgICAgICAgICAgICAgDQogICAgICAgIC AgICAgICAgICAgICAgICAgICAgICAgICAgICAgICAgICAgICAgICAgICAgICAgICAgICAgICAgICAgIC AgICAgICAgICAgICAgICAgICAgICAgICAgICAgICAg DQogICAgICAgICAgICAgICAgICAgICAgICAgICAgICAgICAgICAgICAgICAgICAgICAgICAgICAgICAg ICAgICAgICAgICAgICAgICAgICAgICAgICAgICAgICAgICAgICAgICAgDQogICAgICAgICAgICAgICAg ICAgICAgICAgICAgICAgICAgICAgICAgICAgICAgIC AgICAgICAgICAgICAgICAgICAgICAgICAgICAgICAgICAgICAgICAgICAgICAgICAgICAgDQogICAgIC AgICAgICAgICAgICAgICAgICAgICAgICAgICAgICAgICAgICAgICAgICAgICAgICAgICAgICAgICAgIC AgICAgICAgICAgICAgICAgICAgICAgICAgICAgICAg ICAgDQogICAgICAgICAgICAgICAgICAgICAgICAgICAgICAgICAgICAgICAgICAgICAgICAgICAgICAg HYZiBALjWTNrTTWgVLMsSCBtPNHoIJUjYFZoYBVpVDSsPJRgTWCcFTBeGZEpNSt6E5glXOGkKQCyVF4v FQm7Rm4+RAaRVoErHYG6dcSxzO5DBJ0ow8SzKRetWN Uuv2GzWCv8SJ8GVCIvTBvmYA2GWQzelg8VZBBsWVMcsLAYr8zoQcJqYBZ4UZIpSbctZA5YESJcP0ejsy YaMBWcKYHTKWfaZGWVLH1RSyGtB1OtdA97IGKJFn2+UAtjzkKkLmoJPgZzRIAjm3CgTCp0TD0HTKNxCV jlAK7CNCIqqS7fFMyoGV5DJzUhXNWrZTXSDsGnW93j vNPgPEe1H1LbRdGhSYJlKfxyAMFnFGsiRjNtQKOmOmCuRTnhII4+ID4+ZTtbLK0KFPvmquOtZJNuOk9Z QRGiHXB9HBDtuBHxEfFbSDBXBRarJE1QoFSyOFV5xJ3hIRecMXMlWEEwL3vBDaBtwUphDE22jBepluIf bCBdDQo+Mu8WFA7wq7EwAUe0ebHcAHriABEsMLjaAB MjQNSbLOZqQKP6YWP5YGSRPaZnJJWdIZYtEAswUICaRSQisl4TSRYpPCSbEdr6RpAcUZJuMSBtKHzpWL VsIWY0CeBbWKOgUXAtGG1FRyEsDFJvISMmRCAnCHXkJAZvhu5KHEMzTRJdMnJ5GKBpZKUjIRZzHKkqMZ CjCBMoAlk1UOBaBZWyDC9DQjCuGOOtWRX8SDrtYGMc ORPblq6BATMpKGGqKEZaLlUpJKLdNMWpRCrgPTQiJVD6ORavDXRxZWLiMB2AJoLtQKUsUAIxHcesMOOl SPTfwo2UVAEdJNOpNAZ1QWSgOSXaGRCfCUddTNYySFZ9MIA7KSXnIRMtOH6FEnCgOCGeVBL0QSrfIFXj NNIphi5HSUGpWKPvTgjuSuUkWSNcWSClSOtiRTWdTQ E1GqQ7EVIfBQRbUM7RSdNeZKAnPEq6GdWjMRFyNYUeof3LPHUdBIEzLBD4UVXnTWRgDHFkLUetKTYhTH SjNDWxFHVvUPTzVZ5LIvApJBVcAKM9JiKtCETvYXZwkz3GVGDtRHXwUgM4ThJxSFDuMNZiXZarORMpTK X3VpL3BPPbLPZlQL2ZIeFkUPhwTLOVJub6ZZhsE6z3 UCDiCk1MY1Prm9FhPiJrNEROBYigAQ5qkzTsXKVrDh0GP9bNLif8GxGbLQOmVjQjWdu7MWxmEhseOWZg OPUfVBTjZ9MsZo1mJDmeEGNoUdVwKDJsNdIhT5IcPLOvFHY0EZC1JMXdDFRiBrFuIZ5MRg6NPkA7ZEA7 cEHjCq9JERp3QuHDPlOzMF0DAFh= ID Date Data Source [id number] 10/03/2019 12:00:00 AM EDT [facility] Oliverio Mcbride MD Patient Name: JAELYN [id number] [facility] Date [place] : 1945[place] [address] Date of Exam: 10/03/2019#: Fax: [phone] EXAM: ARTHROCENTESIS RTHIP-ASPIR / INJ STEROID/PAIN MEDSCLINICAL INFORMATION: Unilateral primary osteoarthritis of the righthip.The procedure was performed by LISA Cramer, under the directsupervision of Dr. Baltazar.The benefits and risks including but not limited to pain, infection,bleeding and anaphylaxis were explained to the patient as well as thepotential therapeutic benefits of the procedure and the possibility of anunsuccessful procedure, and an informed consent was obtained. Directlyprior to the start of the procedure, a formal time-out was completed.The right femoral neck was localized using fluoroscopic guidance. The skinwas prepped and draped in a sterile fashion. Approximately 5 cc of 1%Lidocaine 10 mg/ml was used as a local anesthetic. Using fluoroscopicguidance, a #22 gauge spinal needle was in serted and advanced into theright femoral neck. Approximately 1 cc of Omnipaque 300 mg/ml was injectedto verify placement. A 6 cc solution containing 5 cc of 1% Lidocaine 10mg/ml and 1 cc of Kenalog 40 mg/ml was injected into the joint space. Theneedle was then removed.The patient tolerated the procedure well and there were no immediatecomplications.Fluoroscopic images are performed with last image hold technology. Theseimages require no additional radiation to acquire.Fluoroscopy time was 11 seconds at 3 pulses/second. This is equal to 2.75seconds continuous fluoroscopy time which is a 75% reduction in radiation.Dictated by Evan Fernando [facility], with Dr. Baltazar.EUGENIA Cardoso/Chela you for referring LAUREN BOLTON to our office. Electronically Signed - ANSLEY BALTAZAR DO 10/03/19 14:48 Name Value Range Interpretation Code Description Data Mariza rce(s) Supporting Document(s) ID Date Data Source [id number] 10/03/2019 12:00:00 AM EDT [facility] Oliverio Mcbride MD Patient Name: JAELYN [id number] [facility] Date of : 1945[place] [address] Date of Exam: 10/03/2019#: Fax: [phone] EXAM: ARTHROCENTESIS RTHIP-ASPIR / INJ STEROID/PAIN MEDSCLINICAL INFORMATION: Unilateral primary osteoarthritis of the righthip.The procedure was performed by Evan Fernando [facility], under the directsupervision of Dr. Baltazar.The benefits and risks including but not limited to pain, infection,bleeding and anaphylaxis were explained to the patient as well as thepotential therapeutic benefits of the procedure and the possibility of anunsuccessful procedure, and an informed consent was obtained. Directlyprior to the start of the procedure, a formal time-out was completed.The right femoral neck was localized using fluoroscopic guidance. The skinwas prepped and draped in a sterile fashion. Approximately 5 cc of 1%Lidocaine 10 mg/ml was used as a local anesthetic. Using fluoroscopicguidance, a #22 gauge spinal needle was in serted and advanced into theright femoral neck. Approximately 1 cc of Omnipaque 300 mg/ml was injectedto verify placement. A 6 cc solution containing 5 cc of 1% Lidocaine 10mg/ml and 1 cc of Kenalog 40 mg/ml was injected into the joint space. Theneedle was then removed.The patient tolerated the procedure well and there were no immediatecomplications.Fluoroscopic images are performed with last image hold technology. Theseimages require no additional radiation to acquire.Fluoroscopy time was 11 seconds at 3 pulses/second. This is equal to 2.75seconds continuous fluoroscopy time which is a 75% reduction in radiation.Dictated by Evan Fernando, [facility], with Dr. Baltazar.EUGENIA Cardoso/Chela you for referring LAUREN BOLTON to our office. Electronically Signed - ANSLEY BALTAZAR DO 10/03/19 14:48 Name Value Range Interpretation Code Description Data Mariza rce(s) Supporting Document(s) Procedure Social History Code Duration Value Status Description Data Source(s ) Smoking 08/07/2020 12:00:00 AM EST Former Smoker completed Former Smoker eCW1 ([facility]) Smoking 07/25/2020 12:00:00 AM EST Former Smoker completed Former Smoker eCW1 ([facility]) Alcohol intake 06/26/2020 12:00:00 AM EST Not Currently completed [facility] Cigarettes smoked current (pack per day) - Reported 06/26/20 20 12:00:00 AM EST UNK completed [facility] Smoking 06/26/2020 12:00:00 AM EST Current some day smoker com pleted Current some day smoker [facility] Smoking 04/28/2020 12:00:00 AM EDT Quit completed Quit MEDENT ([facility]) Smoking 12/05/2019 12:00:00 AM EDT Former Smoker completed Former Smoker eCW1 ([facility]) Smoking 08/12/2019 12:00:00 AM EST Patient is a former smoker completed Patient is a former smoker MEDENT ([facility]) Vital Signs ID Date Data Source UNK Name Value Range Interpretation Code Description Data Source(s) Diastolic blood pressure 64 mm[Hg] 64 mm[Hg] eCW1 ([facility]) Systolic blood pressure 118 mm[Hg] 118 mm[Hg] e CW1 ([facility]) Respiratory rate 18 /min 18 /min eCW1 ([facility]) Heart rate 65 /min 65 /min eCW1 ([facility]) Body mass index (BMI) [Ratio] 33.24 kg/m2 33.24 kg/m2 eCW1 ([facility]) Body height 65 [in_i] 65 [in_i] eCW1 ([facility]) Body weight 199.8 [lb_av] 199.8 [lb_av] [facility] Diastolic blood pressure 62 mm[Hg] 62 mm[Hg] eCW1 ([facility]) Systolic blood pressure 112 mm[Hg] 112 mm[Hg] e CW1 ([facility]) Body temperature 97.3 [degF] 97.3 [degF] eCW1 ( [facility]) Respiratory rate 20 /min 20 /min eCW1 ([facility]) Heart rate 81 /min 81 /min eCW1 ([facility]) Body mass index (BMI) [Ratio] 32.45 kg/m2 32.45 kg/m2 eCW1 ([facility]) Body height 65 [in_i] 65 [in_i] eCW1 ([facility]) Body weight 195.0 [lb_av] 195.0 [lb_av] eCW1 [facility] Oxygen saturation in Arterial blood by Pulse oximetry 98 % 98 % [facility] Body mass index (BMI) [Ratio] 32.62 kg/m2 32.62 kg/m2 [facility] Body weight 88.905 kg 88.905 kg [facility] Body height 165.1 cm 165.1 cm [facility] Heart rate 75 /min 75 /min [facility] Diastolic blood pressure 78 mm[Hg] 78 mm[Hg] [facility] Systolic blood pressure 140 mm[Hg] 140 mm[Hg] [facility] Body temperature 96.2 [degF] 96.2 [degF] MEDENT ([facility]) Body mass index (BMI) [Ratio] 34.4 kg/m2 34.4 k g/m2 MEDENT ([facility]) Body weight 194.00 [lb_av] 194.00 [lb_av] MEDEN T ([facility]) Body height 63 [in_i] 63 [in_i] MEDENT ([facility] ) 5'3" Oxygen saturation in Arterial blood by Pulse oximetry 97 % 97 % MEDENT ([facility], [facility]) Respiratory rate 16 /min 16 /min MEDENT ( [facility], [facility]) Heart rate 68 /min 68 /min MEDENT ([facility], [facility]) Diastolic blood pressure 60 mm[Hg] 60 mm[Hg] MEDENT ([facility], [facility]) Systolic blood pressure 146 mm[Hg] 146 mm[Hg] M EDENT ([facility], [facility]) Body mass index (BMI) [Ratio] 32.4 kg/m2 32.4 k g/m2 MED[facility] ([facility], [facility]) Body height 65 [in_i] 65 [in_i] MEDENT ([facility], [facility]) 5'5" Body weight 195.00 [lb_av] 195.00 [lb_av] MEDEN T ([facility], [facility]) Body temperature 98.2 [degF] 98.2 [degF] MEDENT ([facility], [facility]) Body mass index (BMI) [Ratio] 32.4 kg/m2 32.4 k g/m2 [facility] ([facility] [place], [facility]) Body height 65 [in_i] 65 [in_i] MEDENT ([facility]) 5'5" Body weight 195.00 [lb_av] 195.00 [lb_av] MEDEN T ([facility], [facility]) Body temperature 98.2 [degF] 98.2 [degF] MEDENT ([facility], [facility]) Oxygen saturation in Arterial blood by Pulse oximetry 98 % 98 % MEDENT ([facility], [facility]) Respiratory rate 16 /min 16 /min MEDENT ( [facility], [facility]) Heart rate 64 /min 64 /min MEDENT ([facility] [place], [facility]) Diastolic blood pressure 68 mm[Hg] 68 mm[Hg] MEDENT ([facility]) Systolic blood pressure 142 mm[Hg] 142 mm[Hg] M EDENT ([facility], [facility]) Diastolic blood pressure 75 mm[Hg] 75 mm[Hg] eCW1 ([facility]) Systolic blood pressure 160 mm[Hg] 160 mm[Hg] e CW1 ([facility]) Body temperature 98.6 [degF] 98.6 [degF] eCW1 ( [facility]) Respiratory rate 20 /min 20 /min eCW1 ([facility]) Heart rate 63 /min 63 /min eCW1 ([facility]) Body mass index (BMI) [Ratio] 32.78 kg/m2 32.78 kg/m2 eCW1 ([facility]) Body height 65 [in_us] 65 [in_us] eCW1 ([facility]) Body weight Measured 197 [lb_av] 197 [lb_av] eC W1 ([facility]) Diastolic blood pressure 76 mm[Hg] 76 mm[Hg] eCW1 ([facility]) Systolic blood pressure 128 mm[Hg] 128 mm[Hg] e CW1 ([facility]) Body temperature 98.3 [degF] 98.3 [degF] eCW1 ( [facility]) Respiratory rate 20 /min 20 /min eCW1 ([facility]) Heart rate 84 /min 84 /min eCW1 ([facility]) Body mass index (BMI) [Ratio] 31.61 kg/m2 31.61 kg/m2 eCW1 ([facility]) Body height 65 [in_us] 65 [in_us] eCW1 ([facility]) Body weight Measured 190 [lb_av] 190 [lb_av] eC W1 ([facility]) Body mass index (BMI) [Ratio] 33.8 kg/m2 33.8 k g/m2 MEDENT ([facility]) Body weight 194.00 [lb_av] 194.00 [lb_av] MEDEN T ([facility]) Body height 63.5 [in_i] 63.5 [in_i] MEDENT ([facility]) 5'3.50" Body temperature 97.1 [degF] 97.1 [degF] MEDENT ([facility]) Diastolic blood pressure 62 mm[Hg] 62 mm[Hg] eCW1 ([facility]) Systolic blood pressure 120 mm[Hg] 120 mm[Hg] e CW1 ([facility]) Body temperature 97.7 [degF] 97.7 [degF] eCW1 ( [facility]) Respiratory rate 18 /min 18 /min eCW1 ([facility]) Heart rate 69 /min 69 /min eCW1 ([facility]) Body mass index (BMI) [Ratio] 32.45 kg/m2 32.45 kg/m2 eCW1 ([facility]) Body height 65 [in_us] 65 [in_us] eCW1 ([facility]) Body weight Measured 195 [lb_av] 195 [lb_av] eC W1 ([facility]) Diastolic blood pressure 82 mm[Hg] 82 mm[Hg] eCW1 ([facility]) Systolic blood pressure 160 mm[Hg] 160 mm[Hg] e CW1 ([facility]) Body temperature 97.7 [degF] 97.7 [degF] eCW1 ( [facility]) Respiratory rate 18 /min 18 /min eCW1 ([facility]) Heart rate 63 /min 63 /min eCW1 ([facility]) Body mass index (BMI) [Ratio] 32.91 kg/m2 32.91 kg/m2 eCW1 ([facility]) Body height 65 [in_us] 65 [in_us] eCW1 ([facility]) Body weight Measured 197.8 [lb_av] 197.8 [lb_av ] eCW1 ([facility]) Patient Treatment Plan of Care Planned Activity Planned Date Details Description Data Source (s) apixaban 5 MG Oral Tablet 04/25/2020 12:00:00 AM EDT [facility] 24 HR metoprolol succinate 25 MG Extended Release Oral Tablet 03/23/2020 12:00:00 AM EDT [facility] duloxetine 30 MG Delayed Release Oral Capsule 01/19/2020 12:00:00 A M EDT [facility] meloxicam 15 MG Oral Tablet 01/02/2020 12:00:00 AM EDT [facility] fluticasone (FLONASE) 50 MCG/ACT nasal spray 12/21/2019 12:00:00 AM EDT [facility] 24 HR mirabegron 50 MG Extended Release Oral Tablet [M yrbetriq] 08/10/2019 12:00:00 AM EST eCW1 ([facility]) Oxybutynin Chloride 5 MG 08/03/2019 12:00:00 AM EST eCW1 ([facility]) Duloxetine HCl 30 MG 08/03/2019 12:00:00 AM EST eCW1 ([facility])
[2020-09-11] MEDS ORDERED: ELIQ5TAB PO (18:17)
--- NOTE | 2020-09-11 19:10 | REP ---
INDICATION: fall injury. COMPARISON: None. TECHNIQUE: Five views of the right knee are provided. FINDINGS: Five views of the right knee demonstrate normal bones, joints, and soft tissues. No fracture or subluxation is seen. No opaque foreign body noted. There is mild vascular calcification. IMPRESSION: Negative right knee radiographs series. <Electronically signed by Shon Engle > 09/11/20 [id number]
--- OUTSIDE RECORDS SUMMARY | 2020-09-11 19:13 | CCD ---
Author Author [facility] Organization [facility] Address Unknown Phone Unavailable Care Team Providers Care Hr Systems Analyst Name Role Phone Randa Pantoja MD Unavailable [...] Pantoja MD Unavailable Unavailable Fons, M Alyssa AQUATIC CENTRE MANAGER Unavailable Unavailable Fons, M Alyssa AQUATIC CENTRE MANAGER Unavailable Unavailable Fons, M Alyssa AQUATIC CENTRE MANAGER Unavailable Unavailable Fons, M Alyssa AQUATIC CENTRE MANAGER Unavailable Unavailable Fons, M Alyssa AQUATIC CENTRE MANAGER Unavailable Unavailable Fons, M Alyssa AQUATIC CENTRE MANAGER Unavailable Unavailable Fons, M Alyssa AQUATIC CENTRE MANAGER Unavailable Unavailable Fons, M Alyssa AQUATIC CENTRE MANAGER Unavailable Unavailable Fons, M Alyssa AQUATIC CENTRE MANAGER Unavailable Unavailable Fons, M Alyssa AQUATIC CENTRE MANAGER Unavailable Unavailable Fons, M Alyssa AQUATIC CENTRE MANAGER Unavailable Unavailable Fons, M Alyssa AQUATIC CENTRE MANAGER Unavailable Unavailable Fons, M Alyssa AQUATIC CENTRE MANAGER Unavailable Unavailable Fons, M Alyssa AQUATIC CENTRE MANAGER Unavailable Unavailable Fons, M Alyssa AQUATIC CENTRE MANAGER Unavailable Unavailable Fons, M Alyssa AQUATIC CENTRE MANAGER Unavailable Unavailable Fons, M Alyssa AQUATIC CENTRE MANAGER Unavailable Unavailable Fons, M Alyssa AQUATIC CENTRE MANAGER Unavailable Unavailable Fons, M Alyssa AQUATIC CENTRE MANAGER Unavailable Unavailable Fons, M Alyssa AQUATIC CENTRE MANAGER Unavailable Unavailable Fons, M Alyssa AQUATIC CENTRE MANAGER Unavailable Unavailable Fons, M Alyssa AQUATIC CENTRE MANAGER Unavailable Unavailable Fons, M Alyssa AQUATIC CENTRE MANAGER Unavailable Unavailable Fons, M Alyssa AQUATIC CENTRE MANAGER Unavailable Unavailable Fons, M Alyssa AQUATIC CENTRE MANAGER Unavailable Unavailable Fons, M Alyssa AQUATIC CENTRE MANAGER Unavailable Unavailable Fons, M Alyssa AQUATIC CENTRE MANAGER Unavailable Unavailable Fons, M Alyssa AQUATIC CENTRE MANAGER Unavailable Unavailable Fons, M Alyssa AQUATIC CENTRE MANAGER Unavailable Unavailable Fons, M Alyssa AQUATIC CENTRE MANAGER Unavailable Unavailable Fons, M Alyssa AQUATIC CENTRE MANAGER Unavailable Unavailable Fons, M Alyssa AQUATIC CENTRE MANAGER Unavailable Unavailable Fons, M Alyssa AQUATIC CENTRE MANAGER Unavailable Unavailable Fons, M Alyssa AQUATIC CENTRE MANAGER Unavailable Unavailable Fons, M Alyssa AQUATIC CENTRE MANAGER Unavailable Unavailable Fons, M Alyssa AQUATIC CENTRE MANAGER Unavailable Unavailable Fons, M Alyssa AQUATIC CENTRE MANAGER Unavailable Unavailable Fons, M Alyssa AQUATIC CENTRE MANAGER Unavailable Unavailable Fons, M Alyssa AQUATIC CENTRE MANAGER Unavailable Unavailable Fons, M Alyssa AQUATIC CENTRE MANAGER Unavailable Unavailable Fons, M Alyssa AQUATIC CENTRE MANAGER Unavailable Unavailable Fons, M Alyssa AQUATIC CENTRE MANAGER Unavailable Unavailable Fons, M Alyssa AQUATIC CENTRE MANAGER Unavailable Unavailable Fons, M Alyssa AQUATIC CENTRE MANAGER Unavailable Unavailable Fons, M Alyssa AQUATIC CENTRE MANAGER Unavailable Unavailable Fons, M Alyssa AQUATIC CENTRE MANAGER Unavailable Unavailable Fons, M Alyssa AQUATIC CENTRE MANAGER Unavailable Unavailable Fons, M Alyssa AQUATIC CENTRE MANAGER Unavailable Unavailable Fons, M Alyssa AQUATIC CENTRE MANAGER Unavailable Unavailable Fons, M Alyssa AQUATIC CENTRE MANAGER Unavailable Unavailable Fons, M Alyssa AQUATIC CENTRE MANAGER Unavailable Unavailable Fons, M Alyssa AQUATIC CENTRE MANAGER Unavailable Unavailable Fons, M Alyssa AQUATIC CENTRE MANAGER Unavailable Unavailable Fons, M Alyssa AQUATIC CENTRE MANAGER Unavailable Unavailable Fons, M Alyssa AQUATIC CENTRE MANAGER Unavailable Unavailable Fish, Ella Duron MD Unavailable [...] Unavailable Unavailable GINZBURG, TAY MD Unavailable Unavailable GINZBURG TAY MD Unavailable [...] is protected by Article 27-F of the [facility] Public Health law. If you continue you may have access to information: Regarding HIV / AIDS; Provided by facilities licensed or operated by the [facility] Office of Mental Health; or Provided by the [facility] Office for People With Developmental Disabilities. If such information is present, then the following [facility] mandated warning applies: This information has [...] law may result in a fine or nursing home sentence or both. A general authorization for the release of medical or other information is NOT sufficient authorization for further disc losure. Allergies and Adverse Reactions Type Description Substance Reaction Status Data Source(s ) Propensity to adverse reactions BEE VENOM Honey bee venom Active [facility] Drug allergy Detrol LA tolterodine SEVERE DEHYDRATION Active eC W1 ([facility]) Drug allergy Nitrofurantoin Nitrofurantoin Rash Active eCW1 ([facility]) BEE STINGS BEE STINGS BEE STINGS Anaphylaxis Active eCW1 ([facility]) BEE STINGS BEE STINGS BEE STINGS Anaphylaxis Active eCW1 ([facility]) BEE STINGS BEE STINGS BEE STINGS Anaphylaxis Active eCW1 ([facility]) Oxybutynin Chloride Oxybutynin Chloride Oxybutynin Chloride DEHYDRATI ON Active eCW1 ([facility]) BEE STINGS BEE STINGS BEE STINGS Anaphylaxis Active eCW1 ([facility]) Drug Allergy Drug Allergy NKDA MEDENT ([facility]) Family History Family Member Name Family Member Gender Family Member Status Date o f Status Description Data Source(s) Unknown Unknown Problem MEDENT ([facility]) Unknown Male Problem MEDENT ([facility]) Encounters Encounter Providers Location Date Indications Data Source(s ) Outpatient Attender: Oliverio Mcbride MD Physical Therapy 09/03/2020 0 2:30:00 PM EST MEDENT ([facility]) [place]patient [address] [facility] [address] 08/07/2020 12:00:00 AM EST eCW1 ([facility]) Outpatient [address] [facility] [address] 07/25/2020 12:00:00 AM EST eCW1 ([facility]) Outpatient Attender: Alyssa KUHN SJP.GILLIAN-SJP.GILLIAN 0 12:00:00 AM EST - 06/26/2020 04:05:22 PM EST [facility] OFFICE OUTPATIENT VISIT 15 MINUTES Attender: Oliverio Mcbride MD Phys ical Therapy 06/01/2020 08:15:00 AM EST MEDENT ([facility]) Outpatient Attender: EVAN Bolton Primary 04/28/2020 10:15:00 AM EDT MEDENT ([facility]) Outpatient Attender: Oliverio Mcbride MD Physical Therapy 04/23/2020 0 2:15:00 PM EDT MEDENT ([facility]) Unknown [address] [facility] [address] 04/18/2020 12:00:00 AM EDT eCW1 ([facility]) Outpatient JOSLYN-SJP 03/26/2020 07:18:54 PM EDT [facility] Outpatient Attender: Alyssa Iverson FNPReferrer: Alyssa CarranzaGILLIAN-SJCarlee.GILLIAN 03/23/2020 12:00:00 AM EDT - 03/23/2020 02:19:27 PM EDT [facility] Outpatient Referrer: Alyssa PRITCHETTGILLIAN-SJP.GILLIAN 03/23/2020 12:00:00 AM EDT [facility] Outpatient Referrer: Randa PRITCHETTCT-SJP.SYR 02/18 09:17:09 AM EDT [facility] Outpatient Attender: Randa Pantoja MDReferrer: Moshe PRITCHETTCT-SJP.SYR 02/21/2020 10:46:47 AM EDT [facility] Outpatient Attender: Alyssa PRITCHETTGILLIAN-SJP.GILLIAN 0 01:51:23 PM EDT - 02/17/2020 03:04:53 PM EDT [facility] [address] [facility] [address] 02/15/2020 12:00:00 AM EDT eCW1 ([facility]) Outpatient Attender: Yumikojessica penn 12/21/2019 01:30:00 PM EDT MEDENT ([facility]) [facility] Urology [address] [facility] [address] 12/06/2019 12:00:00 AM EDT eCW1 ([facility]) [facility] Urology [address] [facility] [place] [address] 12/05/2019 12:00:00 AM EDT eCW1 ([facility]) Outpatient Attender: TAY BARON MD 11/23/2019 12:00: 00 AM [facility] Outpatient Attender: Oliverio Mcbride MD Physical Therapy 11/07/2019 1 1:30:00 AM EDT MEDENT ([facility]) [facility] [address] [facility] [place] [address] 10/18/2019 12:00:00 AM EDT eCW1 ([facility]) [facility] [address] [facility] [address] 10/14/2019 12:00:00 AM EDT eCW1 ([facility] GME Resident [address] [place] [address] 10/14/2019 12:00:00 AM EDT eCW1 ([facility]) [facility] [address] [facility] [place] [address] 10/14/2019 12:00:00 AM EDT eCW1 ([facility]) Outpatient Referrer: Oliverio Mcbride MD 09/27/2019 10:58:00 AM EDT [facility] Outpatient Referrer: Oliverio Mcbride MD 09/23/2019 01:29:00 PM EST [facility] Outpatient Attender: Oliverio Mcbride MD Physical Therapy 09/22/2019 1 2:45:00 PM EST MEDENT ([facility]) [facility] Urology [address] [facility] [address] 09/06/2019 12:00:00 AM EST eCW1 ([facility]) [facility] [address] [facility] [address] 08/31/2019 12:00:00 AM EST eCW1 ([facility]) OFFICE OUTPATIENT NEW 30 MINUTES Attender: Oliverio Mcbride MD Physic al Therapy 08/12/2019 09:45:00 AM EST MEDENT ([facility]) [facility] Urology [address] [facility] [address] 08/10/2019 12:00:00 AM EST eCW1 ([facility]) [facility] [address] [facility] [address] 08/03/2019 12:00:00 AM EST eCW1 ([facility]) [facility] [address] [facility] [address] 07/27/2019 12:00:00 AM EST eCW1 ([facility]) Immunizations Vaccine Date Status Description Data Source(s) INFLUENZA VACCINE QUADRIVALENT (65 YR UP)/MF59 C.1/PF 04/17/2020 12:00:00 AM EDT completed [facility] pneumococcal polysaccharide PPV23 08/03/2019 09:49:00 AM EST comple chris eCW1 ([facility]) pneumococcal polysaccharide PPV23 08/03/2019 09:49:00 AM EST comple chris eCW1 ([facility]) pneumococcal polysaccharide PPV23 08/03/2019 09:49:00 AM EST comple chris eCW1 ([facility]) pneumococcal polysaccharide PPV23 08/03/2019 09:49:00 AM EST comple chris eCW1 ([facility]) Medications Medication Brand Name Start [...] 04/28/2020 12:00:00 AM EDT ORAL active MEDENT ([facility]) Amoxicillin 875 MG / Clavulanate 125 MG Oral Tablet Am oxicillin/Clavulanate Potassium 04/28/2020 12:00:00 AM EDT ORAL active MEDENT ([facility]) 200 mg 04/28/2020 12:00:00 AM EDT [...] BY MOUTH TWICE A DAY SOLD: 04/27/2020 [facility] 5 mg 04/26/2020 12:00:00 AM [...] mouth 2 (t wo) times a day [facility] Paroxysmal atrial fibrillation 0.3 mg/0.3 mL [...] (25 mg total) by mouth as needed [facility] 30 mg 02/27/2020 12:00:00 AM EDT [...] active Take 60 mg by mouth daily [facility] 15 mg 01/03/2020 12:00:00 AM EDT [...] active Take 1 tablet by mouth daily [facility] fluticasone (FLONASE) 50 MCG/ACT nasal spray 1148-0512-26 12/21/2019 12:00:00 AM EDT active [facility] 50 mcg/actuation 12/21/2019 12:00:00 AM EDT spray,suspension 16 SPRAY 2 SPRAYS IN EACH NOSTRIL TWO TIMES A DAY FOR FIRST WEEK THEN REDUCE TO 1 SPRAY TWO TIMES A DAY SPRAY 2 SPRAYS IN EACH NOSTRIL TWO TIMES A DAY FOR FIRST WEEK THEN REDUCE TO 1 SPRAY TWO TIMES A DAY SOLD: 12/22/2019 [facility] Fluticasone Propionate Nasal [place] Fluticasone Propionate Na bobby [place] 12/21/2019 12:00:00 AM EDT active M EDENT ([facility], [facility]) Nasal Cleanse Rinse Mix 12/21/2019 12:00:00 AM EDT active MEDENT ([facility], [facility]) Fexofenadine hydrochloride 180 MG Oral Tablet Fexofenadine H CL 12/21/2019 12:00:00 AM EDT ORAL active M EDENT ([facility], [facility]) 100 mg 08/20/2019 12:00:00 AM EST [...] 12:00:00 AM EST active 1 tablet eCW1 ([facility]) 24 HR mirabegron 50 MG Extended Release Oral Tablet [M yrbetriq] Myrbetriq 50 MG Myrbetriq 50 MG 08/10/2019 12:00:00 AM EST active 1 tablet eCW1 ([facility]) 24 HR mirabegron 50 MG Extended Release Oral Tablet [M yrbetriq] Myrbetriq 50 MG Myrbetriq 50 MG 08/10/2019 12:00:00 AM EST 1.0 {tablet} active Myrbetriq 50 MG eCW1 ([facility]) 24 HR mirabegron 50 MG Extended Release Oral Tablet [M yrbetriq] Myrbetriq 50 MG Myrbetriq 50 MG 08/10/2019 12:00:00 AM EST active 1 tablet eCW1 ([facility]) Duloxetine HCl 30 MG UNK 08/03/2019 12:00:00 AM EST active 1 capsule eCW1 ([facility]) 30 mg 08/03/2019 12:00:00 AM EST capsule,delayed release (DR/EC) 30 TAKE ONE CAPSULE BY MOUTH EVERY DAY TAKE ONE CAPSULE BY MOUTH EVERY DAY SOLD: 01/21/2020 [facility] Oxybutynin Chloride 5 MG UNK 08/03/2019 12:00:00 AM EST active 1 tablet eCW1 ([facility]) 30 mg 08/03/2019 12:00:00 AM [...] a ctive Duloxetine HCl 30 MG eCW1 ([facility]) 30 mg 08/03/2019 12:00:00 AM EST capsule,delayed release (DR/EC) 30 TAKE ONE CAPSULE BY MOUTH EVERY DAY TAKE ONE CAPSULE BY MOUTH EVERY DAY SOLD: 11/12/2019 [facility] duloxetine 30 MG Delayed Release Oral Capsule Duloxeti ne HCl 30 MG Duloxetine HCl 30 MG 08/03/2019 12:00:00 AM EST active 1 capsule eCW1 ([facility]) duloxetine 30 MG Delayed Release Oral Capsule Duloxeti ne HCl 30 MG Duloxetine HCl 30 MG 08/03/2019 12:00:00 AM EST active 1 capsule eCW1 ([facility]) Oxybutynin chloride 5 MG Oral Tablet OXYBUTYNIN CHLORIDE 12:00:00 AM EST tablet 60 TAKE ONE TABLET BY MOUTH TWI CE A DAY TAKE ONE TABLET BY MOUTH TWICE A DAY SOLD: 08/03/2019 [facility] duloxetine 30 MG Delayed Release Oral Capsule Duloxeti ne HCl 30 MG Duloxetine HCl 30 MG 08/03/2019 12:00:00 AM EST active 1 capsule eCW1 ([facility]) 30 mg 08/03/2019 12:00:00 AM [...] type / Coverage type Policy ID Covered republican ID Covered republican's relationship to amanda Policy Amanda Plan Information WELLCARE [id number] SP [id number] WELLCARE O [id number] O [id number] WELLCARE MEDICARE [id number] Jessa 17 [id number] WELLCARE MEDICARE [id number] WELLCARE MEDICARE O G [id number] Self [id number] WELLCARE [id number] SP [id number] WELLCARE O [id number] S [id number] ANS-Health Maintenance Organization ( O) [id number] ANSI-Health Maintenance Organization ( O) [id number] ANSI-Health Maintenance Organization ( O) [id number] ANSI-Health Maintenance Organization ( O) [id number] ANSI-Medicare Part B [id number] ANS-Health Maintenance Organization ( O) [id number] ANSI-Medicare Part B [id number] [facility]-Health Maintenance Organization ( O) [id number] ANSI-Medicare Part B [id number] ANSI-Medicare Part B [id number] ANSI-Medicare Part B [id number] [facility]-Health Maintenance Organization ( O) [id number] ANSI-Medicare Part B [id number] TODAYS OPTIONS [id number] SP [id number] ANSI-Medicare Part B [id number] ANSI-Medicare Part B [id number] [facility]-Health Maintenance Organization ( O) [id number] ANSI-Medicare Part B [id number] ANSI-Medicare Part B [id number] ANSI-Health Maintenance Organization ( O) [id number] ANSI-Health Maintenance Organization ( O) [id number] ANSI-Medicare Part B [id number] ANSI-Medicare Part B [id number] [facility] [id number] [place] [id number] ANSI-Medicare Part B [id number] ANSI-Medicare Part B [id number] ANSI-Medicare Part B [id number] ANSI-Medicare Part B [id number] ANSI-Medicare Part B [id number] ANSI-Medicare Part B [id number] TODAYS OPTIONS [id number] SP [id number] ANSI-Medicare Part B [id number] ANSI-Medicare Part B [id number] ANSI-Medicare Part B [id number] ANSI-Medicare Part B [id number] ANSI-Medicare Part B [id number] ANSI-Medicare Part B [id number] Today's Option Medicare Commercial [id number] Self [id number] TODAYS OPTIONS [id number] SP [id number] ANSI-Medicare Part B [id number] ANSI-Medicare Part B [id number] ANSI-Medicare Part B [id number] ANSI-Medicare Part B [id number] ANSI-Medicare Part B [id number] ANSI-Medicare Part B [id number] ANSI-Medicare Part B [id number] ANSI-Medicare Part B [id number] ANSI-Medicare Part B [id number] ANSI-Medicare Part B [id number] ANSI-Medicare Part B [id number] ANSI-Medicare Part B [id number] ANSI-Medicare Part B [id number] ANSI-Medicare Part B [id number] ANSI-Medicare Part B [id number] ANSI-Medicare Part B [id number] ANSI-Medicare Part B [id number] ANSI-Medicare Part B [id number] Today's Option Medicare Commercial [id number] Self [id number] TODAYS OPTIONS [id number] SP [id number] TODAYS OPTIONS [id number] SP [id number] Today's Options Medicare Commercial [id number] Self [id number] Today's Option Medicare Commercial [id number] Self [id number] MEDICARE BLUE PPO 306 [id number] SP [id number] BS Medicare Blue Ppo/Hmo Commercial Self [place] PPO 302/307 [id number] SP [id number] [place] 302/307 [id number] SP [id number] Medicare Natl Gov't Servi Medicare Primary Self [facility] S [id number] S VYS [id number] [facility] S [id number] S VYS [id number] MEDICARE P [id number] S [id number] A MEDICARE [id number] SP [id number] A [id number] Problems, Conditions, and Diagnoses Code Display Name Description Problem Type Effective Dates Data Source(s) R01.1 Systolic murmur Systolic murmur [id number] 02/17/2020 12:0 0:00 AM EDT [facility] I48.0 Paroxysmal atrial fibrillation Paroxysmal atrial fibri llation [id number] 02/17/2020 12:00:00 AM EDT [facility] I10 HTN (hypertension) HTN (hypertension) 36229864 0 12:00:00 AM EDT [facility] E78.5 Hyperlipidemia Hyperlipidemia [id number] 02/17/2020 12:00: 00 AM EDT [facility] [id number] Pure hypercholesterolemia Pure hypercholesterolemia Pr oblem 08/12/2019 12:00:00 AM EST [facility] ([facility]) R01.1 Cardiac murmur, unspecified Cardiac murmur, unspecifie d Diagnosis 06/26/2020 02:56:51 PM EST [facility] I48.0 Paroxysmal atrial fibrillation Paroxysmal atrial fibri llation Diagnosis 06/26/2020 02:56:51 PM EST [facility] I10 Essential (primary) hypertension Essential (primary) h ypertension Diagnosis 06/26/2020 02:56:51 PM EST [facility] E78.5 Hyperlipidemia, unspecified Hyperlipidemia, unspecifie d Diagnosis 06/26/2020 02:56:51 PM EST [facility] I25.10 Atherosclerotic heart diseas e of [place] coronary artery without angina pectoris Atherosclerotic heart disease of [place] Diagnosis 06/26/2020 02:56:51 PM EST [facility] I48.91 Unspecified atrial fibrillation Unspecified atri al fibrillation Diagnosis 02/17/2020 01:51:23 PM EDT [facility] Surgeries/Procedures Procedure Description Date Indications Data Source(s) X-Ray Hips Bilateral With Pelvis 3-4 Views 09/03/2020 12:00:00 AM EST [facility] ([facility] ) ARTHROCENTESIS ASPIR&/INJECTION MAJOR JT/BURSA 12:00:00 AM EDT [facility] ([facility] ) BLOOD COUNT COMPLETE AUTO&AUTO DIFRNTL WBC COUNT CBC AND DIFFER ENTIAL Routine 04/12/2020 04/12/2020 12:00:00 AM EDT [facility] THYROID STIMULATING HORMONE TSH TSH Routine 04/12/2020 04/12/2020 12:00:00 AM EDT [facility] BASIC METABOLIC PANEL CALCIUM TOTAL BASIC METABOLIC PANEL Routine 04/12/2020 04/12/2020 12:00:00 AM EDT [facility] Office Visit, Est Pt., Level 2 FC 12/05/2019 12:00:00 AM EDT [facility] ([facility]) Office Visit, Est Pt., Level 3 PC 12/05/2019 12:00:00 AM EDT [facility]1 ([facility]) Office Visit, Est Pt., Level 4 PC 10/14/2019 12:00:00 AM EDT [facility]1 ([facility]) Office Visit, Est Pt., Level 3 FC 10/14/2019 12:00:00 AM EDT [facility]1 ([facility]) THERAPEUTIC PX 1/> AREAS EACH 15 MIN EXERCISES 12:00:00 AM EDT [facility] [facility] MANUAL THERAPY TQS 1/> REGIONS EACH 15 MINUTES 12:00:00 AM EDT MEDENT ([facility] ) THERAPEUTIC PX 1/> AREAS EACH 15 MIN EXERCISES 12:00:00 AM EDT MEDENT ([facility] ) MANUAL THERAPY TQS 1/> REGIONS EACH 15 MINUTES 12:00:00 AM EDT MEDENT ([facility] ) ARTHROCENTESIS ASPIR&/INJECTION MAJOR JT/BURSA 12:00:00 AM EST MEDENT ([facility] ) THERAPEUTIC PX 1/> AREAS EACH 15 MIN EXERCISES 12:00:00 AM EST MEDENT ([facility] ) MANUAL THERAPY TQS 1/> REGIONS EACH 15 MINUTES 12:00:00 AM EST MEDENT ([facility] ) THERAPEUTIC PX 1/> AREAS EACH 15 MIN EXERCISES 12:00:00 AM EST MEDENT ([facility]) MANUAL THERAPY TQS 1/> REGIONS EACH 15 MINUTES 12:00:00 AM EST MEDENT ([facility] ) Physical Therapy Eval - Low Complexity 09/06/2019 12:0 0:00 AM EST MEDENT ([facility]) ARTHROCENTESIS ASPIR&/INJECTION MAJOR JT/BURSA 12:00:00 AM EST MEDENT ([facility]) X-Ray Hips Bilateral With Pelvis 3-4 Views 08/12/2019 12:00:00 AM EST MEDENT ([facility]) Annual wellness visit, includes a person alized prevention plan of service (pps), subsequent visit 08/03/2019 12:00:00 AM EST eCW 1 ([facility]) Pneumococcal Adult 0.5mL (Pneumovax 23) 08/03/2019 12: 00:00 AM EST eCW1 ([facility]) Administration of pneumococcal vaccine 08/03/2019 12:0 0:00 AM EST eCW1 ([facility]) Results ID Date Data Source [id number] 08/16/2020 12:00:00 AM EST [facility] ology Imaging Ras Singh MD Patient Name: JAELYN [id number] [facility] Date of : 1945[facility] Date of Exam: 08/16/2020JOSHUA Jarvis [id number]#: Fax: [phone] EXAM: MAMMO SCREENING WITH CADCLINICAL [...] mammogram was read with the assistance of [facility] [employer], an FDAapproved computer aided detection system for [...] rce(s) Supporting Document(s) ID Date Data Source [id number] 05/10/2020 12:00:00 AM EDT [facility] Oliverio Mcbride MD Patient Name: JAELYN [id number] [facility] 1945[facility] [place] [address] Date of Exam: 05/10/2020#: Fax: [phone] EXAM: [...] rce(s) Supporting Document(s) ID Date Data Source [id number] 05/10/2020 12:00:00 AM EDT [facility] Imaging Oliverio Mcbride MD Patient Name: JAELYN [id number] [facility] Date of : 1945[place] [address] Date of Exam: 05/10/2020#: Fax: [phone] EXAM: [...] rce(s) Supporting Document(s) ID Date Data Source [id number] 03/26/2020 07:10:53 PM EDT [facility] Name Value Range Interpretation Code Description Data Mariza rce(s) Supporting Document(s) &PDF [facility] CFNRUf9eHvIXOyRm74/KEZjnQDOxj9BvHKwqCCl4CZjiKPSkR9LiaKjoSMHQEQPBD12gQa7OJKkGNaQX vci [file] AgICAgICAgICAgICAgICAgICAgICAgICAgICAgICAg ICAgICAgICAgICAgICAgICAgICAgICAgICAgICAgICANCiAgICAgICAgICAgICAgICAgICAgICAgICAg ICAgICAgICAgICAgICAgICAgICAgICAgICAgICAgICAgICAgICAgICAgICAgICAgICAgICAgICAgICAg ICAgICAgICAgICAgICANCiAgICAgICAgICAgICAgIC AgICAgICAgICAgICAgICAgICAgICAgICAgICAgICAgICAgICAgICAgICAgICAgICAgICAgICAgICAgIC AgICAgICAgICAgICAgICAgICAgICAgICANCiAgICAgICAgICAgICAgICAgICAgICAgICAgICAgICAgIC AgICAgICAgICAgICAgICAgICAgICAgICAgICAgICAg ICAgICAgICAgICAgICAgICAgICAgICAgICAgICAgICAgICANCiAgICAgICAgICAgICAgICAgICAgICAg ICAgICAgICAgICAgICAgICAgICAgICAgICAgICAgICAgICAgICAgICAgICAgICAgICAgICAgICAgICAg ICAgICAgICAgICAgICAgICANCiAgICAgICAgICAgIC AgICAgICAgICAgICAgICAgICAgICAgICAgICAgICAgICAgICAgICAgICAgICAgICAgICAgICAgICAgIC AgICAgICAgICAgICAgICAgICAgICAgICAgICANCiAgICAgICAgICAgICAgICAgICAgICAgICAgICAgIC AgICAgICAgICAgICAgICAgICAgICAgICAgICAgICAg ICAgICAgICAgICAgICAgICAgICAgICAgICAgICAgICAgICAgICANCiAgICAgICAgICAgICAgICAgICAg ICAgICAgICAgICAgICAgICAgICAgICAgICAgICAgICAgICAgICAgICAgICAgICAgICAgICAgICAgICAg ICAgICAgICAgICAgICAgICAgICANCiAgICAgICAgIC AgICAgICAgICAgICAgICAgICAgICAgICAgICAgICAgICAgICAgICAgICAgICAgICAgICAgICAgICAgIC AgICAgICAgICAgICAgICAgICAgICAgICAgICAgICANCiAgICAgICAgICAgICAgICAgICAgICAgICAgIC AgICAgICAgICAgICAgICAgICAgICAgICAgICAgICAg ICAgICAgICAgICAgICAgICAgICAgICAgICAgICAgICAgICAgICAgICANCjw/dDPhE5mrwZHascI7F8ft Mo8BXp6EGM8rx7HlQPPyKLouikMtVqtTDaVbDJHsPkeBKgb8EYplCB5LqZCsL3FfV0IzNYteIA8FUHAz ICAniPCkCLOeSLXoGsW9DZYhLArgUZ3KbRFzSBqjAA ReVOLaUK0PKCKeM884fyVkOW5NWq6JDuPdJH5okr2XZUnwJDBcHskDHsa4CQkbKU5SuNDkV4IsrQQeu0 pTOxIlU3SVTLS6GAUpTw5KSZHlEiYiWLIrHUcdLP2lUUZjSAQYfIwfacJ1FN3ULV8munRfTC8XFvYgIh 1dFa1DErJrW5OpC0JlNQAdUAFLQIqxMC5QCERyQZQ2 PXIgVHRzBOKWMfFcM96uJN8MR4Ceo59iZuI3GMCjOfEaHCmmYG20yGxqgtRpaOCtrTfbWL0DWc5+DQpl mcCuDzgYQzduFDBYXyOoZrSYQbPfQNEyQHBeOJZeIjD8RsNyMe6NHLQzKCVqFVFrAaLnNHRkGFQuPHaq TVJvAMU2MpF1JYXrRHYlUT8NZlWtHKAbVDanILNhCZ TwMLCxqy4FPWPrDYXjKXC7VoNmSDXlDDReYIleBGXaRNXwAwYtMRZkCBJfAT7RPfFuRZGmSTS6XXgtFD XbOZIuti2UVNQqBZGlGxTtJpOrGKWqZZCeJIulUEDtQZElXyKgJXRxGDLcLX7BOkNvNPLbFBL9WHCyCS NeVMPcpc4FVKSvKDNbLEv6QQSbUVVqZQOnSPkdKWXl YRW9YQVgFKLjIOGoOL2AGnRzUXGzTEHuNhelNQPyPPNnvr5PBTTqKDXjPqG3AiUaTBGyHTDiENrhFAKq BTH6Dgu6LTKtHQGbJW4NWdLiYDOwEXS0PxVoISFaPZEnmf1QFYObWXKwTwZ5ZLXoMFVvFPZxQIznZHPg MDU2VgksPAIuGHVwOI7ZPoFtTAFcBUX7UOFuEMTqRC Pxsn0SDSTdMBMnMwF2GMUfMQJqUELiWOo2gdTahDPaCDn0SE7QZ1ZiaiKqWlHTVy1Nb014ZZF7JVNcUg 2VF3mdYa1sNYUeVKFLMk8XQGs3BbawNlK4IRNlNXZuTvNeDaC8EGZrEJudPCe9HVg3ZGS+IDxmOGViZj OsG5ExOyRtSBUrNrpvReT8DTBpSNx4RYZfMk3aBA ANCj4+LJwliTDbgBhrBSAHEkX8PeK5BJqkZMIXWw0J ID Date Data Source [id number] 03/23/2020 04:22:25 PM EDT [facility] Name Value Range Interpretation Code Description Data Mariza rce(s) Supporting Document(s) &PDF [facility] MAXURh3wYdDEExUt86/AZGkgEBAww4JeZXqkCXa8LGbzRBYiZ8XdhAgaHKMHWBYUX91lTv7OVMmHMzDL vci [file] ICAgICAgICAgICAgICAgICAgICAgICAgICAgICAgIC AgICAgICAgICAgICAgICAgICAgICAgICAgICAgICAgICAgICAgICAgICAgICAgDQogICAgICAgICAgIC AgICAgICAgICAgICAgICAgICAgICAgICAgICAgICAgICAgICAgICAgICAgICAgICAgICAgICAgICAgIC AgICAgICAgICAgICAgICAgICAgICAgICAgICAgDQog ICAgICAgICAgICAgICAgICAgICAgICAgICAgICAgICAgICAgICAgICAgICAgICAgICAgICAgICAgICAg ICAgICAgICAgICAgICAgICAgICAgICAgICAgICAgICAgICAgICAgDQogICAgICAgICAgICAgICAgICAg ICAgICAgICAgICAgICAgICAgICAgICAgICAgICAgIC AgICAgICAgICAgICAgICAgICAgICAgICAgICAgICAgICAgICAgICAgICAgICAgICAgDQogICAgICAgIC AgICAgICAgICAgICAgICAgICAgICAgICAgICAgICAgICAgICAgICAgICAgICAgICAgICAgICAgICAgIC AgICAgICAgICAgICAgICAgICAgICAgICAgICAgICAg DQogICAgICAgICAgICAgICAgICAgICAgICAgICAgICAgICAgICAgICAgICAgICAgICAgICAgICAgICAg ICAgICAgICAgICAgICAgICAgICAgICAgICAgICAgICAgICAgICAgICAgDQogICAgICAgICAgICAgICAg ICAgICAgICAgICAgICAgICAgICAgICAgICAgICAgIC AgICAgICAgICAgICAgICAgICAgICAgICAgICAgICAgICAgICAgICAgICAgICAgICAgICAgDQogICAgIC AgICAgICAgICAgICAgICAgICAgICAgICAgICAgICAgICAgICAgICAgICAgICAgICAgICAgICAgICAgIC AgICAgICAgICAgICAgICAgICAgICAgICAgICAgICAg ICAgDQogICAgICAgICAgICAgICAgICAgICAgICAgICAgICAgICAgICAgICAgICAgICAgICAgICAgICAg ICAgICAgICAgICAgICAgICAgICAgICAgICAgICAgICAgICAgICAgICAgICAgDQogICAgICAgICAgICAg ICAgICAgICAgICAgICAgICAgICAgICAgICAgICAgIC NiQPThNKGkRAXdWWDdFXCiOUHfAWMcZNIbTWDzBMHdPSOjBOPpVLWnHYXmWTKyJMXoAJHoRQWgBQr4A0 boWALzCLDwCZ9wHNv7Rc2+MYyZNzSfWYK8coLnbY1NZL2tj2IoYXmcVIRei1NqQTj1RA3FKEArCFvxHP 2PGAtwxj3YUAWgWSGplGKWa4hiTcBiMAU5TKEtAzug VS3JBNNyN0djpaJeANBpZDUHCWcqVJVFUD5FOaWiR5SpiC39YLHGDd9+YUbqksWeGicQXlYpPJFiu0Eo DDx8LD3WEUXyYOhbRV0BZIYhlK3rTAguGI8TOuGcEHCbAPDKHdHgU65usXCqAAq1X3YvJzPaCQRnRcso ZXMgPDwvTmFtZXMgWyBdDQogID4+ID4+IGygLO5SUC yylgAyJDMlLy3UTKRhZLN7QMWboDQmVlMwZXJMQZiiFL3JpBKvAPJ7zI0wQCzwKUXyVUHfO2sWFuSxwE vlPH06aEgowaMduBLdBVm+Zv9WNU2uf1FxEMd4tpJdBKjoAMGpSTutZLCfLYZdWEZoBDN8ZQQ1LGOUMt KuFSYdNBZwTTksSBQtMDAkft2FLRFaZZLaAWUoTFBs NVHlLDFkHNenKMPhFQJsLcV4IFUdVETtLC9YFxGcFGLtEJIuIGLuSPXwPTEkyw8JOIWuCEGfDsPuYuYr PVUeYZHpPAjnUPRnDYCtEEOiSDDsZEAjOV4KBhQtWVOhXUW4HdDrYENjYIBien8UXJBbYKPxSQytLUQa YVAsLDBgYVotIXHgIBW8Vfz7EXJiDIRnDC6BRbByKM TuWUJ6UGPtUKMdUJOndj9FDYAuAULtVuR3TJTtWBGcLEQmTQxuBNJlFHE1SRJ4QBIfVFKoBD2LTxHqWV JsQUnpMrWmRUWcLATbir9JDOPqKFLaSHYnBMSyKBUfITCpIHhaHDDsREE6JlwiNDEcNOJhRF9GCpSmIJ GaAIk6ITAzOXCnEJEwhj9DSEPzOPSzKLi3TWYaLGQo CXLiWRquNRBxEAF6MWPzMRTdTZIdKV9WWzLwXSEjNUl6GvdbOUPyUUDjpj5TDOUvOHBfBGpoJXZaLETn CCYfXYtdPYMaEODwPeJbBLCtJZTqCJ2GZfToBOxvXQSSAtd2EUwyJ3d1NFCuZk0LA4Irs1QsDmTnRPQT YXivTW1djuLlPPLuHx8KU4fTYkjnZMLvRaH8GjCmDW WkP6ZvPMGlAEV3OUMhLxDcWPinVW8qDIOmFgPlZLFbIFQjZCQcFaUhYdA0WWqiGXJyUJK8CCD6McNpRN 1LYz9OTzX2TXI2rQYuYs4LHjC6BLEETsRdCL4NOYj= ID Date Data Source [id number] 02/24/2020 10:30:49 AM EDT [facility] Name Value Range Interpretation Code Description Data Mariza rce(s) Supporting Document(s) &PDF [facility] EIJUKq5aZzGZTdLm48/JMByhYEYgt0MxZDilZWa4VRpiOWPsY5BmgKfaKMCOZZLCQ35hTs7RFPyRUxPL vci jVaViqRSX7o7SnuDNzX28feH2wOMJvd71qXYrfGX5+DQplbmRvYmoNCjQgMCBvYmoNCiAgPDwvRmlsdG FsKW4IvRD3PRNtO91rJMEnRYYzL8VwYLKjUPx+Fp1HBEEeqDMsBB0MGnhV4UdjiqD5QR3/6f4HS/dwnE Qb2+l3DwdmhOMtvvY9YruPWsAwlCZJ7qfWgLpix0am QwEcG4XIGcy6UBhHKhsh+pV9fGcEpGOO17GgXuZCVr19/xqnWpyMxO+/icW0QM+yTv9BBpjyLo6hyfgM tYKRqFGffxx9hwKeWRCx5f9e5lAOllilxw7Zj/fi1PNeRhlclfno0fWdMLhEEi8EaEGr7RsiIr3Sjb7Y J755kiWJ7+2y4x25mkg414v3tfrhRg0rh+8eAKf2mh [file] ICAgICAgICAgICAgICAgICAgICAgICAgICAgICAgICAgICAgICAgICAgICAgICAgICAgICAgICAgICAg ICAgICAgICAgICAgICAgICAgICAgICAgICAgICAgICAgICAgDQogICAgICAgICAgICAgICAgICAgICAg ICAgICAgICAgICAgICAgICAgICAgICAgICAgICAgIC AgICAgICAgICAgICAgICAgICAgICAgICAgICAgICAgICAgICAgICAgICAgICAgDQogICAgICAgICAgIC AgICAgICAgICAgICAgICAgICAgICAgICAgICAgICAgICAgICAgICAgICAgICAgICAgICAgICAgICAgIC AgICAgICAgICAgICAgICAgICAgICAgICAgICAgDQog ICAgICAgICAgICAgICAgICAgICAgICAgICAgICAgICAgICAgICAgICAgICAgICAgICAgICAgICAgICAg ICAgICAgICAgICAgICAgICAgICAgICAgICAgICAgICAgICAgICAgDQogICAgICAgICAgICAgICAgICAg ICAgICAgICAgICAgICAgICAgICAgICAgICAgICAgIC AgICAgICAgICAgICAgICAgICAgICAgICAgICAgICAgICAgICAgICAgICAgICAgICAgDQogICAgICAgIC AgICAgICAgICAgICAgICAgICAgICAgICAgICAgICAgICAgICAgICAgICAgICAgICAgICAgICAgICAgIC AgICAgICAgICAgICAgICAgICAgICAgICAgICAgICAg DQogICAgICAgICAgICAgICAgICAgICAgICAgICAgICAgICAgICAgICAgICAgICAgICAgICAgICAgICAg ICAgICAgICAgICAgICAgICAgICAgICAgICAgICAgICAgICAgICAgICAgDQogICAgICAgICAgICAgICAg ICAgICAgICAgICAgICAgICAgICAgICAgICAgICAgIC AgICAgICAgICAgICAgICAgICAgICAgICAgICAgICAgICAgICAgICAgICAgICAgICAgICAgDQogICAgIC AgICAgICAgICAgICAgICAgICAgICAgICAgICAgICAgICAgICAgICAgICAgICAgICAgICAgICAgICAgIC AgICAgICAgICAgICAgICAgICAgICAgICAgICAgICAg ICAgDQogICAgICAgICAgICAgICAgICAgICAgICAgICAgICAgICAgICAgICAgICAgICAgICAgICAgICAg EEKyHOQaVIDoTWDzWCPfOJGiQUJjJCFqBTCiGEZgWEXsDUXiMXOkTNWrPWZeQRr4S6daKYPkOSKdLP7o QNq9Ch1+XKqVMjLwDUD8ytTgnJ6NEN9rq2JeDFxcRA Rpm8EkQPf9RR0NBCZzYXnlLI6EMLwasd5BKGCdFKBefGUEm6twFvUaUYY4LAKcAcxrUM3OEFMtV5fybi FaYZYgBONKINdnCGYKCV2CGtRzH2RnmT00UURAYn9+DDdflcQlGzwYQyZtHXIkb9IkBMj4IP5RCJOtAL ymMF2ETRJccT7dDCpkQR6GHpQoCJTqDFRZLeLqB11c gUCrCHe5J8PyMkOuGYYwRtgfGELxLKsfZcZnQFErKkDrUQloWJ0+ID4+TRkdSC0AJHmoekKkXJGcZo0V PTRfJZC5BVKpdPUlIyCnDTCCYPfrCZ9QcHOpGXP1yJ6tWTroTHWfDNIxO9jBVsYxtHuyOT49nEbwooLw bCBdDQo+Hk2VJZ0tt4WxOOh5hyFuAFxpADOiAHkvER NwUCCtWQQcZEP8SDD0CXEBXdRnDYQeVUWaYZkxTDYvSTOrds8GIXJzYVOoFiv2EfIiDBMpEDLeESdlVL YhUOV1ZrWuPPHqSCUiEP2AJeOoHLYeWPFfAUFhYNWiKMQfkr9XIFBzDJNkQvU2CWCfVGUySWBeFUflJL DdKSErUpp4TDUrVCFlAT2HVlRmJLCvDJS3NOaqXULg RRWqrj3DLKOiJEMfDXLaMvRuBCEcGYOzWLrfMKItXQN8UVhkYPSiOONmOD6QJqHlWDPkUCViNcpfNXZt ZGPbkq1RFGBgHGIwALP7PJMyGYTcLOToYQppODPdNIS2SXI8AMGpMLHyYB5WHkZdXSFqUYU0JWdaVPLt CDOath6TIWYyTRJwTvudJsCqLBYkEINyWUvcUVWfNH J4KqM0SSEaKWQtGP4OToMgMLXkUHs2MsQsFSZeCRKatd5VBCWhLLXsNSZ9XTLrIBXfWLZoDBqfSMCwTD CaFVDcVKMuXQMhZA2DYrOiZUNbGYZ3PbWpGDEeZQDjqp9NBFMtGDGyFmI3HcErNLFvFNJqCYutJLKuUJ A9BsP4NSAkBXMiBW5SSlRcHWatUFMWSte0LXfvB6z0 DWPlGu1QX0Jpk8OiRaPpMYZWNJnmPG2xsfMhKAFbXb1LB7ePMht7QnIaOVDhWcNoSto2JWakWstaBSMd USSfICJyN9ThUe0eHBopUGTcLiZxHKVpBdVvP1XoNFUrXKF3YCQ7OKKgBRSqPjKnVF3DWm9XWoG0NUM0 fXMuKt0MPAw1IaNPHaSyVZ2HNAn= ID Date Data Source [id number] 10/03/2019 12:00:00 AM EDT [facility] oly Imaging Oliverio Mcbride MD Patient Name: JAELYN [id number] [facility] 1945[facility] [id number] Date of Exam: 10/03/2019#: Fax: [phone] EXAM: [...] 75% reduction in radiation.Dictated by Evan Fernando [facility], with Dr. Baltazar.EUGENIA Cardoso/Chela you for referring LAUREN BOLTON to our office. Electronically Signed - ANSLEY BALTAZAR DO 10/03/19 14:48 Name Value Range Interpretation Code Description Data Mariza rce(s) Supporting Document(s) ID Date Data Source [id number] 10/03/2019 12:00:00 AM EDT [facility] Imaging Oliverio Mcbride MD Patient Name: JAELYN [id number] [facility] Date of : 1945[place] [address] Date of Exam: 10/03/2019#: Fax: [phone] EXAM: ARTHROCENTESIS RTHIP-ASPIR / INJ STEROID/PAIN MEDSCLINICAL INFORMATION: Unilateral primary osteoarthritis of the righthip.The procedure was performed by Evan Fernando [facility], under the directsupervision of Dr. Baltazar.The [...] 75% reduction in radiation.Dictated by Evan Fernando, [facility], with Dr. Baltazar.EUGENIA Cardoso/Chela you for referring LAUREN BOLTON to our office. Electronically Signed - ANSLEY BALTAZAR DO 10/03/19 14:48 Name Value Range Interpretation Code Description Data Mariza rce(s) Supporting Document(s) Procedure Social History Code Duration Value Status Description Data Source(s ) Smoking 08/07/2020 12:00:00 AM EST Former Smoker completed Former Smoker eCW1 ([facility]) Smoking 07/25/2020 12:00:00 AM EST Former Smoker completed Former Smoker eCW1 ([facility]) Alcohol intake 06/26/2020 12:00:00 AM EST Not Currently completed [facility] Cigarettes smoked current (pack per day) - Reported 06/26/20 20 12:00:00 AM EST UNK completed [facility] Smoking 06/26/2020 12:00:00 AM EST Current some day smoker com pleted Current some day smoker [facility] Smoking 04/28/2020 12:00:00 AM EDT Quit completed Quit MEDENT ([facility]) Smoking 12/05/2019 12:00:00 AM EDT Former Smoker completed Former Smoker eCW1 ([facility]) Smoking 08/12/2019 12:00:00 AM EST Patient is a former smoker completed Patient is a former smoker MEDENT ([facility]) Vital Signs ID Date Data Source UNK Name Value Range Interpretation Code Description Data Source(s) Diastolic blood pressure 64 mm[Hg] 64 mm[Hg] eCW1 ([facility]) Systolic blood pressure 118 mm[Hg] 118 mm[Hg] e CW1 ([facility]) Respiratory rate 18 /min 18 /min eCW1 ([facility]) Heart rate 65 /min 65 /min eCW1 ([facility]) Body mass index (BMI) [Ratio] 33.24 kg/m2 33.24 kg/m2 eCW1 ([facility]) Body height 65 [in_i] 65 [in_i] eCW1 ([facility]) Body weight 199.8 [lb_av] 199.8 [lb_av] eCW1 ([facility]) Diastolic blood pressure 62 mm[Hg] 62 mm[Hg] eCW1 ([facility]) Systolic blood pressure 112 mm[Hg] 112 mm[Hg] e CW1 ([facility]) Body temperature 97.3 [degF] 97.3 [degF] eCW1 ( [facility]) Respiratory rate 20 /min 20 /min eCW1 ([facility]) Heart rate 81 /min 81 /min eCW1 ([facility]) Body mass index (BMI) [Ratio] 32.45 kg/m2 32.45 kg/m2 eCW1 ([facility]) Body height 65 [in_i] 65 [in_i] eCW1 ([facility]) Body weight 195.0 [lb_av] 195.0 [lb_av] eCW1 ([facility]) Oxygen saturation in Arterial blood by Pulse oximetry 98 % 98 % [facility] Body mass index (BMI) [Ratio] 32.62 kg/m2 32.62 kg/m2 [facility] Body weight 88.905 kg 88.905 kg [facility] Body height 165.1 cm 165.1 cm [facility] Heart rate 75 /min 75 /min [facility] Diastolic blood pressure 78 mm[Hg] 78 mm[Hg] [facility] Systolic blood pressure 140 mm[Hg] 140 mm[Hg] [facility] Body temperature 96.2 [degF] 96.2 [degF] MEDENT ([facility]) Body mass index (BMI) [Ratio] 34.4 kg/m2 34.4 k g/m2 MEDENT ([facility]) Body weight 194.00 [lb_av] 194.00 [lb_av] MEDEN T ([facility]) Body height 63 [in_i] 63 [in_i] MEDENT ([facility] ) 5'3" Oxygen saturation in Arterial blood by Pulse oximetry 97 % 97 % MEDENT ([facility]) Respiratory rate 16 /min 16 /min MEDENT ( [facility], [facility]) Heart rate 68 /min 68 /min MEDENT ([facility], [facility]) Diastolic blood pressure 60 mm[Hg] 60 mm[Hg] MEDENT ([facility], [facility]) Systolic blood pressure 146 mm[Hg] 146 mm[Hg] M EDENT ([facility], [facility]) Body mass index (BMI) [Ratio] 32.4 kg/m2 32.4 k g/m2 MEDENT ([facility], [facility]) Body height 65 [in_i] 65 [in_i] MEDENT ([facility], [facility]) 5'5" Body weight 195.00 [lb_av] 195.00 [lb_av] MEDEN T ([facility], [facility]) Body temperature 98.2 [degF] 98.2 [degF] MEDENT ([facility], [facility]) Body mass index (BMI) [Ratio] 32.4 kg/m2 32.4 k g/m2 MED[facility] ([facility], [facility]) Body height 65 [in_i] 65 [in_i] MEDENT ([facility]) 5'5" Body weight 195.00 [lb_av] 195.00 [lb_av] MEDEN T ([facility], [facility]) Body temperature 98.2 [degF] 98.2 [degF] MEDENT ([facility], [facility]) Oxygen saturation in Arterial blood by Pulse oximetry 98 % 98 % MEDENT ([facility], [facility]) Respiratory rate 16 /min 16 /min MEDENT ( [facility], [facility]) Heart rate 64 /min 64 /min MEDENT ([facility], [facility]) Diastolic blood pressure 68 mm[Hg] 68 mm[Hg] MEDENT ([facility]) Systolic blood pressure 142 mm[Hg] 142 mm[Hg] M EDENT ([facility], [facility]) Diastolic blood pressure 75 mm[Hg] 75 mm[Hg] eCW1 ([facility]) Systolic blood pressure 160 mm[Hg] 160 mm[Hg] e CW1 ([facility]) Body temperature 98.6 [degF] 98.6 [degF] eCW1 ( [facility]) Respiratory rate 20 /min 20 /min eCW1 ([facility]) Heart rate 63 /min 63 /min eCW1 ([facility]) Body mass index (BMI) [Ratio] 32.78 kg/m2 32.78 kg/m2 eCW1 ([facility]) Body height 65 [in_us] 65 [in_us] eCW1 ([facility]) Body weight Measured 197 [lb_av] 197 [lb_av] eC W1 ([facility]) Diastolic blood pressure 76 mm[Hg] 76 mm[Hg] eCW1 ([facility]) Systolic blood pressure 128 mm[Hg] 128 mm[Hg] e CW1 ([facility]) Body temperature 98.3 [degF] 98.3 [degF] eCW1 ( [facility]) Respiratory rate 20 /min 20 /min eCW1 ([facility]) Heart rate 84 /min 84 /min eCW1 ([facility]) Body mass index (BMI) [Ratio] 31.61 kg/m2 31.61 kg/m2 eCW1 ([facility]) Body height 65 [in_us] 65 [in_us] eCW1 ([facility]) Body weight Measured 190 [lb_av] 190 [lb_av] eC W1 ([facility]) Body mass index (BMI) [Ratio] 33.8 kg/m2 33.8 k g/m2 MEDENT ([facility]) Body weight 194.00 [lb_av] 194.00 [lb_av] MEDEN T ([facility]) Body height 63.5 [in_i] 63.5 [in_i] MEDENT ([facility]) 5'3.50" Body temperature 97.1 [degF] 97.1 [degF] MEDENT ([facility]) Diastolic blood pressure 62 mm[Hg] 62 mm[Hg] eCW1 ([facility]) Systolic blood pressure 120 mm[Hg] 120 mm[Hg] e CW1 ([facility]) Body temperature 97.7 [degF] 97.7 [degF] eCW1 ( [facility]) Respiratory rate 18 /min 18 /min eCW1 ([facility]) Heart rate 69 /min 69 /min eCW1 ([facility]) Body mass index (BMI) [Ratio] 32.45 kg/m2 32.45 kg/m2 eCW1 ([facility]) Body height 65 [in_us] 65 [in_us] eCW1 ([facility]) Body weight Measured 195 [lb_av] 195 [lb_av] eC W1 ([facility]) Diastolic blood pressure 82 mm[Hg] 82 mm[Hg] eCW1 ([facility]) Systolic blood pressure 160 mm[Hg] 160 mm[Hg] e CW1 ([facility]) Body temperature 97.7 [degF] 97.7 [degF] eCW1 ( [facility]) Respiratory rate 18 /min 18 /min eCW1 ([facility]) Heart rate 63 /min 63 /min eCW1 ([facility]) Body mass index (BMI) [Ratio] 32.91 kg/m2 32.91 kg/m2 eCW1 ([facility]) Body height 65 [in_us] 65 [in_us] eCW1 ([facility]) Body weight Measured 197.8 [lb_av] 197.8 [lb_av ] eCW1 ([facility]) Patient Treatment Plan of Care Planned Activity Planned Date Details Description Data Source (s) apixaban 5 MG Oral Tablet 04/25/2020 12:00:00 AM EDT [facility] 24 HR metoprolol succinate 25 MG Extended Release Oral Tablet 03/23/2020 12:00:00 AM EDT [facility] duloxetine 30 MG Delayed Release Oral Capsule 01/19/2020 12:00:00 A M EDT [facility] meloxicam 15 MG Oral Tablet 01/02/2020 12:00:00 AM EDT [facility] fluticasone (FLONASE) 50 MCG/ACT nasal spray 12/21/2019 12:00:00 AM EDT [facility] 24 HR mirabegron 50 MG Extended Release Oral Tablet [M yrbetriq] 08/10/2019 12:00:00 AM EST eCW1 ([facility]) Oxybutynin Chloride 5 MG 08/03/2019 12:00:00 AM EST eCW1 ([facility]) Duloxetine HCl 30 MG 08/03/2019 12:00:00 AM EST eCW1 ([facility])
[2020-09-11 19:14] VITALS: BP 180/80
== END 2020-09-11 19:19 | disposition home or self-care (01) ==
LOC: M ED 17:22
DX: S80.01XA Contusion of right knee, initial encounter (principal); W00.0XXA Fall on same level due to ice and snow, initial encounter; Y92.018 Other place in single-family (private) house as the place of occurrence of the external cause; Y93.9 Activity, unspecified; Y99.9 Unspecified external cause status; I11.9 Hypertensive heart disease without heart failure; Z88.8 Allergy status to other drugs, medicaments and biological substances; Z91.030 Bee allergy status; Z79.01 Long term (current) use of anticoagulants; Z79.899 Other long term (current) drug therapy

== ENCOUNTER → 2021-01-22 | Outpatient (CLI) | payer MEDICARE ==
[~2021-01-22] MED LIST changes: +ELIQ5TAB PO
[2021-01-22 13:26] LABS: BASO # 0.1 10^3/uL (0.0-0.2); BASO % 1.1 % (0.0-1.0); EOS # 0.5 10^3/uL (0.0-0.5); EOS % 4.8 % (0.0-3.0); HEMATOCRIT 44.9 % (36.0-47.0); HEMOGLOBIN 14.3 g/dl (12.0-15.5); LYMPH # 1.9 10^3/uL (1.5-5.0); LYMPH % 17.1 % (24.0-44.0); MEAN CORPUSCULAR HEMOGLOBIN 30.8 pg (27.0-33.0); MEAN CORPUSCULAR HGB CONC 31.8 g/dl (32.0-36.5); MEAN CORPUSCULAR VOLUME 96.8 fl (80.0-96.0); MONO # 0.8 10^3/uL (0.0-0.8); MONO % 7.4 % (2.0-8.0); NEUTROPHILS # 7.7 10^3/uL (1.5-8.5); NEUTROPHILS % 69.2 % (36.0-66.0); PLATELET COUNT, AUTOMATED 377 10^3/uL (150-450); RED BLOOD COUNT 4.64 10^6/uL (4.00-5.40); WHITE BLOOD COUNT 11.2 10^3/uL (4.0-10.0)
[2021-01-22 13:44] LABS: HEMOGLOBIN A1c 6.3 %
[2021-01-22 13:52] LABS: ALBUMIN 3.3 GM/DL (3.2-5.2); BILIRUBIN,TOTAL 0.6 MG/DL (0.2-1.0); CALCIUM LEVEL 9.4 MG/DL (8.8-10.2); CHOLESTEROL RISK RATIO 3.065 (<5); CREATININE FOR GFR 1.03 MG/DL (0.55-1.30); GLOMERULAR FILTRATION RATE 55.8 (>39); MAGNESIUM LEVEL 2.5 MG/DL (1.8-2.4); POTASSIUM SERUM 5.2 MEQ/L (3.5-5.1); TOTAL PROTEIN 7.1 GM/DL (6.4-8.2)
== END ==
LOC: M PLALAB 09:23
PROVIDERS: ATTEND Internal Medicine
DX: E78.00 Pure hypercholesterolemia, unspecified (principal); R73.01 Impaired fasting glucose; K21.9 Gastro-esophageal reflux disease without esophagitis; I10 Essential (primary) hypertension

== ENCOUNTER → 2021-03-05 | Outpatient (CLI) | payer MEDICARE ==
--- NOTE | 2021-03-05 23:41 | REP ---
INDICATION: CIGARETTE SMOKER COMPARISON: None. TECHNIQUE: Axial noncontrast images from the thoracic inlet to the upper abdomen using low-dose lung screening technique (LDCT). FINDINGS: Lung hadley are well aerated, relatively symmetric and demonstrate scattered age-related interstitial changes. No suspicious consolidation, nodule or mass lesion. No effusion. No pneumothorax. Tracheobronchial tree is patent. Atherosclerotic changes to the thoracic aorta and coronary arteries noted. IMPRESSION: Lung rads category 1. No suspicious nodule or mass lesion. Management recommendations include annual low-dose CT surveillance. <Electronically signed by Tim Olivia > 03/05/21 [id number]
== END ==
LOC: M RAD 10:16
PROVIDERS: ATTEND Internal Medicine
DX: Z12.2 Encounter for screening for malignant neoplasm of respiratory organs (principal); F17.218 Nicotine dependence, cigarettes, with other nicotine-induced disorders

== ENCOUNTER → 2021-05-21 | Outpatient (CLI) | payer MEDICARE ==
[2021-05-21 11:59] LABS: HEMATOCRIT 42.1 % (36.0-47.0); HEMOGLOBIN 13.9 g/dl (12.0-15.5); MEAN CORPUSCULAR HEMOGLOBIN 31.2 pg (27.0-33.0); MEAN CORPUSCULAR VOLUME 94.4 fl (80.0-96.0); PLATELET COUNT, AUTOMATED 345 10^3/uL (150-450); RED BLOOD COUNT 4.46 10^6/uL (4.00-5.40); WHITE BLOOD COUNT 9.8 10^3/uL (4.0-10.0)
[2021-05-21 12:09] LABS: INR 1.18; PROTHROMBIN TIME 15.4 SECONDS (12.7-14.5)
[2021-05-21 12:42] LABS: ALBUMIN 3.2 GM/DL (3.2-5.2); BILIRUBIN,TOTAL 0.9 MG/DL (0.2-1.0); CALCIUM LEVEL 9.7 MG/DL (8.8-10.2); CREATININE FOR GFR 1.1 MG/DL (0.55-1.30); GLOMERULAR FILTRATION RATE 51.5 (>39); POTASSIUM SERUM 4.7 MEQ/L (3.5-5.1); TOTAL PROTEIN 6.7 GM/DL (6.4-8.2)
[2021-05-21 13:09] LABS: ERYTHROCYTE SEDIMENTATION RATE 34 mm/hr (0-30)
--- NOTE | 2021-05-21 15:42 | REP ---
INDICATION: RIGHT HIP ARHTROPLASTY-PREOP. COMPARISON: 04/09/2018 the latest prior TECHNIQUE: PA and lateral FINDINGS: The superior mediastinal structures are midline. The cardiac silhouette is unremarkable in size, shape, and position. The diaphragmatic surfaces of the lungs are regular, and the costophrenic angles are clear. The pulmonary hadley are clear. The imaged osseous structures are intact. IMPRESSION: There is no acute cardiopulmonary disease. No significant change compared to the prior exam. <Electronically signed by Bill Clements > 05/21/21 [id number]
--- NOTE | 2021-05-21 21:28 | ECGEPIP ---
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
== END ==
LOC: M RAD 10:21
PROVIDERS: ATTEND Orthopaedic Surgery
DX: Z01.818 Encounter for other preprocedural examination (principal); M16.11 Unilateral primary osteoarthritis, right hip

== ENCOUNTER → 2022-01-21 | Outpatient (CLI) | payer MEDICARE | LOC: M RAD 10:12 | PROVIDERS: ATTEND Orthopaedic Surgery | DX: E78.00 Pure hypercholesterolemia, unspecified (principal); I10 Essential (primary) hypertension; R73.01 Impaired fasting glucose; K21.9 Gastro-esophageal reflux disease without esophagitis; Z96.641 Presence of right artificial hip joint | CPT/HCPCS: 36415; 78315; 80053; 80061; 83036; 83735; 85025; 85652; 86140; A9503 ==

== ENCOUNTER → 2022-01-21 | Outpatient (CLI) | payer MEDICARE ==
[2022-01-21 11:01] LABS: BASO # 0.1 10^3/uL (0.0-0.2); BASO % 0.9 % (0.0-1.0); EOS # 0.4 10^3/uL (0.0-0.5); EOS % 3.7 % (0.0-3.0); HEMOGLOBIN 15.2 g/dl (12.0-15.5); LYMPH # 1.8 10^3/uL (1.5-5.0); LYMPH % 16.5 % (24.0-44.0); MEAN CORPUSCULAR HEMOGLOBIN 30.6 pg (27.0-33.0); MEAN CORPUSCULAR HGB CONC 31.7 g/dl (32.0-36.5); MEAN CORPUSCULAR VOLUME 96.6 fl (80.0-96.0); MONO # 0.7 10^3/uL (0.0-0.8); MONO % 6.3 % (2.0-8.0); NEUTROPHILS # 7.9 10^3/uL (1.5-8.5); NEUTROPHILS % 72.2 % (36.0-66.0); PLATELET COUNT, AUTOMATED 407 10^3/uL (150-450); RED BLOOD COUNT 4.97 10^6/uL (4.00-5.40)
[2022-01-21 11:42] LABS: ERYTHROCYTE SEDIMENTATION RATE 26 mm/hr (0-30)
== END ==
LOC: M PLALAB 08:49
PROVIDERS: ATTEND Orthopaedic Surgery
DX: Z96.641 Presence of right artificial hip joint (principal)

== ENCOUNTER → 2022-01-21 | Outpatient (CLI) | payer MEDICARE ==
[2022-01-21 11:01] LABS: BASO # 0.1 10^3/uL (0.0-0.2); BASO % 0.9 % (0.0-1.0); EOS # 0.4 10^3/uL (0.0-0.5); HEMATOCRIT 48.6 % (36.0-47.0); HEMOGLOBIN 15.4 g/dl (12.0-15.5); LYMPH # 1.8 10^3/uL (1.5-5.0); LYMPH % 16.7 % (24.0-44.0); MEAN CORPUSCULAR HEMOGLOBIN 30.2 pg (27.0-33.0); MEAN CORPUSCULAR HGB CONC 31.7 g/dl (32.0-36.5); MEAN CORPUSCULAR VOLUME 95.3 fl (80.0-96.0); MONO # 0.6 10^3/uL (0.0-0.8); NEUTROPHILS # 7.6 10^3/uL (1.5-8.5); NEUTROPHILS % 72.1 % (36.0-66.0); PLATELET COUNT, AUTOMATED 416 10^3/uL (150-450); WHITE BLOOD COUNT 10.6 10^3/uL (4.0-10.0)
[2022-01-21 11:28] LABS: ALBUMIN 3.3 GM/DL (3.2-5.2); BILIRUBIN,TOTAL 0.7 MG/DL (0.2-1.0); CALCIUM LEVEL 9.4 MG/DL (8.8-10.2); CHOLESTEROL RISK RATIO 3.431 (<5); CREATININE FOR GFR 1.24 MG/DL (0.55-1.30); GLOMERULAR FILTRATION RATE 44.9 (>39); MAGNESIUM LEVEL 2.3 MG/DL (1.8-2.4); POTASSIUM SERUM 5.1 MEQ/L (3.5-5.1); TOTAL PROTEIN 6.9 GM/DL (6.4-8.2)
[2022-01-21 12:14] LABS: HEMOGLOBIN A1c 6.3 %
== END ==
LOC: M PLALAB 08:52
PROVIDERS: ATTEND Internal Medicine
DX: E78.00 Pure hypercholesterolemia, unspecified (principal); I10 Essential (primary) hypertension; R73.01 Impaired fasting glucose; K21.9 Gastro-esophageal reflux disease without esophagitis

== ENCOUNTER → 2022-03-06 | Outpatient (CLI) | payer MEDICARE | LOC: M RAD 14:26 | PROVIDERS: ATTEND Internal Medicine | DX: F17.210 Nicotine dependence, cigarettes, uncomplicated (principal) ==

== ENCOUNTER → 2022-05-09 | Outpatient (CLI) | payer MEDICARE ==
[2022-05-09 15:49] LABS: PLATELET COUNT, AUTOMATED 352 10^3/uL (150-450)
[2022-05-09 16:02] LABS: INR 1.26; PARTIAL THROMBOPLASTIN TIME 33.7 SECONDS (24.8-34.2); PROTHROMBIN TIME 16.1 SECONDS (12.5-14.5)
== END ==
LOC: M PLALAB 13:36
PROVIDERS: ATTEND Physical Medicine & Rehabilitation
DX: M54.16 Radiculopathy, lumbar region (principal); Z79.899 Other long term (current) drug therapy; Z79.01 Long term (current) use of anticoagulants

== ENCOUNTER → 2022-05-09 | Outpatient (CLI) | payer MEDICARE ==
[2022-05-09 15:51] LABS: BASO # 0.1 10^3/uL (0.0-0.2); BASO % 0.9 % (0.0-1.0); EOS # 0.5 10^3/uL (0.0-0.5); HEMATOCRIT 44.5 % (36.0-47.0); HEMOGLOBIN 14.2 g/dl (12.0-15.5); LYMPH # 2.1 10^3/uL (1.5-5.0); LYMPH % 17.8 % (24.0-44.0); MEAN CORPUSCULAR HGB CONC 31.9 g/dl (32.0-36.5); MEAN CORPUSCULAR VOLUME 97.2 fl (80.0-96.0); MONO # 0.9 10^3/uL (0.0-0.8); MONO % 7.6 % (2.0-8.0); NEUTROPHILS # 8.1 10^3/uL (1.5-8.5); NEUTROPHILS % 69.3 % (36.0-66.0); PLATELET COUNT, AUTOMATED 345 10^3/uL (150-450); RED BLOOD COUNT 4.58 10^6/uL (4.00-5.40); WHITE BLOOD COUNT 11.7 10^3/uL (4.0-10.0)
[2022-05-09 17:38] LABS: ERYTHROCYTE SEDIMENTATION RATE 28 mm/hr (0-30)
== END ==
LOC: M PLALAB 13:34
PROVIDERS: ATTEND Orthopaedic Surgery
DX: Z96.641 Presence of right artificial hip joint (principal)

== ENCOUNTER 2022-07-15 17:41 | Inpatient (IN) | payer MEDICARE ==
[~2022-07-15] VITALS: Ht 162.6 cm; Wt 88.0 kg
[2022-07-15 18:44] LABS: VENOUS BASE EXCESS -3.5 (-2.0-2.0); VENOUS HCO3 21.9 MEQ/L (23.0-27.0); VENOUS O2 SATURATION 91.3 % (60.0-80.0); VENOUS PARTIAL PRESSURE CO2 41.1 mmHg (38.0-50.0); VENOUS PARTIAL PRESSURE O2 64.9 mmHg (30.0-50.0); VENOUS PH 7.345 UNITS (7.330-7.430); VENOUS STANDARD HCO3 21.4 MEQ/L; VENOUS TOTAL CO2 23.2 MEQ/L (24.0-28.0)
[2022-07-15] MEDS ORDERED: ONDANSETRON 4MG 2ML VIAL IV ONE (18:45)
[2022-07-15] MEDS ORDERED: NS 1,000 ML IV ONE ×2 (18:45→22:40)
[2022-07-15 18:48] LABS: BASO # 0.1 10^3/uL (0.0-0.2); BASO % 0.5 % (0.0-1.0); EOS # 0.1 10^3/uL (0.0-0.5); EOS % 0.3 % (0.0-3.0); HEMATOCRIT 48.8 % (36.0-47.0); HEMOGLOBIN 15.8 g/dl (12.0-15.5); LYMPH % 5.1 % (24.0-44.0); MEAN CORPUSCULAR HEMOGLOBIN 30.9 pg (27.0-33.0); MEAN CORPUSCULAR HGB CONC 32.4 g/dl (32.0-36.5); MEAN CORPUSCULAR VOLUME 95.5 fl (80.0-96.0); MONO # 1.2 10^3/uL (0.0-0.8); MONO % 6.4 % (2.0-8.0); NEUTROPHILS # 16.4 10^3/uL (1.5-8.5); PLATELET COUNT, AUTOMATED 417 10^3/uL (150-450); RED BLOOD COUNT 5.11 10^6/uL (4.00-5.40); WHITE BLOOD COUNT 18.9 10^3/uL (4.0-10.0)
[2022-07-15 19:00] LABS: INR 1.56
[2022-07-15 19:12] LABS: LIPASE 16 U/L (12-53)
[2022-07-15 19:15] LABS: ALBUMIN 3.1 G/DL (3.2-5.2); ALKALINE PHOSPHATASE 162 U/L (46-116); ALT/SGPT 26 U/L (7.0-40); AST/SGOT 36 U/L (<34); BILIRUBIN,DIRECT 0.6 MG/DL (<0.4); BILIRUBIN,TOTAL 1.5 MG/DL (0.3-1.2); BLOOD UREA NITROGEN 21 MG/DL (9-23); CALCIUM LEVEL 9.3 MG/DL (8.3-10.6); CARBON DIOXIDE LEVEL 24 MMOL/L (20-31); CHLORIDE LEVEL 100 MMOL/L (98-107); CK-MB VALUE MASS < 1.0 NG/ML (<3.6); CREATININE FOR GFR 1.31 MG/DL (0.55-1.30); GLUCOSE, FASTING 179 MG/DL (74-106); SODIUM LEVEL 137 MMOL/L (136-145); TOTAL PROTEIN 7.3 G/DL (5.7-8.2)
[2022-07-15 19:16] LABS: THYROID STIMULATING HORMONE 1.365 uIU/ML (0.55-4.78)
[2022-07-15] MEDS ORDERED: METOPROLOL TART 25 MG TABLET PO ONE (19:30)
[2022-07-15 19:31] LABS: CPK CREATINE PHOSPHOKINASE 53 U/L (34-145); MB/CK RELATIVE INDEX 1.88 (< OR =4)
[2022-07-15] MEDS ORDERED: cefTRIAXone SOD 2 GM in D5W MINI-BAG PLUS 50 ML IV ONE (20:35)
[2022-07-15 20:41] LABS: CK-MB VALUE MASS 1.2 NG/ML (<3.6)
[2022-07-15 20:43] LABS: MB/CK RELATIVE INDEX 2.35 (< OR =4)
[2022-07-15] MEDS ORDERED: ATOR40TA75 PO (21:32)
[2022-07-15] MEDS ORDERED: METO1TAB7 PO (21:32)
[2022-07-15] MEDS ORDERED: PANT40TA29 PO (21:32)
[2022-07-15] MEDS ORDERED: AMLO25TA PO (21:32)
[2022-07-15] MEDS ORDERED: DULO1CAP6 PO (21:32)
[2022-07-15] MEDS ORDERED: HOME MED LIST COMPLETE! XX SCH (21:35)
[2022-07-15] MEDS ORDERED: GLUCAGON INJ 1MG VIAL SC PRN (22:45)
[2022-07-15] MEDS ORDERED: GLUCOSE 4GM CHEW TABLET PO PRN (22:45)
[2022-07-15] MEDS ORDERED: DEXTROSE 50% 50ML SYRINGE IV PRN (22:45)
[2022-07-16] MEDS: INSULIN LISPRO (NovoLOG) PER UNIT SC SCH ×4 (01:33→17:15)
[2022-07-16] MEDS: APIXABAN 5 MG TAB (ELIQUIS) PO SCH ×3 (01:33→20:39)
[2022-07-16] MEDS ORDERED: NS 500 ML IV ONE (02:30)
[2022-07-16] MEDS ORDERED: DIGOXIN INJ 0.5 MG/2 ML AMP IV ONE (06:00)
[2022-07-16] MEDS: METOPROLOL 5 MG/5 ML VIAL IV SCH ×3 (06:11→06:29)
[2022-07-16 07:12] LABS: HEMOGLOBIN A1c 6.3 % (4.0-6.0)
[2022-07-16 07:14] LABS: HEMOGLOBIN 12.7 g/dl (12.0-15.5)
[2022-07-16 07:21] LABS: CREATININE FOR GFR 1.08 MG/DL (0.55-1.30); GLOMERULAR FILTRATION RATE 52.5 (>39); POTASSIUM SERUM 4.3 MMOL/L (3.5-5.1)
[2022-07-16] MEDS ORDERED: ONDANSETRON 4MG 2ML VIAL IV PRN (08:45)
[2022-07-16 09:08] LABS: BASO # 0.1 10^3/uL (0.0-0.2); BASO % 0.5 % (0.0-1.0); EOS # 0.3 10^3/uL (0.0-0.5); EOS % 1.8 % (0.0-3.0); HEMATOCRIT 38.5 % (36.0-47.0); HEMOGLOBIN 12.5 g/dl (12.0-15.5); LYMPH # 1.6 10^3/uL (1.5-5.0); LYMPH % 9.6 % (24.0-44.0); MEAN CORPUSCULAR HEMOGLOBIN 31.6 pg (27.0-33.0); MEAN CORPUSCULAR HGB CONC 32.5 g/dl (32.0-36.5); MEAN CORPUSCULAR VOLUME 97.2 fl (80.0-96.0); MONO # 1.4 10^3/uL (0.0-0.8); MONO % 8.5 % (2.0-8.0); NEUTROPHILS % 78.6 % (36.0-66.0); PLATELET COUNT, AUTOMATED 381 10^3/uL (150-450); RED BLOOD COUNT 3.96 10^6/uL (4.00-5.40); WHITE BLOOD COUNT 16.5 10^3/uL (4.0-10.0)
[2022-07-16] MEDS: DULoxetine 30MG CAPSULE (CYMBALTA) PO SCH (09:08)
[2022-07-16] MEDS: METOPROLOL SUCC (TopROL XL) 50MG **XL** TAB PO SCH (09:08)
[2022-07-16] MEDS: PANTOPRAZOLE 40MG TAB (PROTONIX) PO SCH (09:08)
[2022-07-16 09:33] LABS: CALCIUM LEVEL 8.2 MG/DL (8.3-10.6); GLOMERULAR FILTRATION RATE 57.4 (>39); POTASSIUM SERUM 4.8 MMOL/L (3.5-5.1)
[2022-07-16 12:00] VITALS: BP 145/63
[2022-07-16 14:15] VITALS: BP 146/69
[2022-07-16 14:16] VITALS: BP 123/77
[2022-07-16] MEDS ORDERED: cefTRIAXone SOD 1 GM in D5W MINI-BAG PLUS 50 ML IV SCH (21:00)
[2022-07-16] MEDS ORDERED: ATORVASTATIN 20 MG TAB PO SCH (21:00)
[2022-07-16] MEDS ORDERED: INSULIN LISPRO (NovoLOG) PER UNIT SC SCH (21:00)
[2022-07-16 22:00] VITALS: BP 140/78
[2022-07-17 05:48] LABS: BASO # 0.1 10^3/uL (0.0-0.2); BASO % 0.6 % (0.0-1.0); EOS # 0.4 10^3/uL (0.0-0.5); EOS % 2.3 % (0.0-3.0); HEMATOCRIT 37.5 % (36.0-47.0); HEMOGLOBIN 11.8 g/dl (12.0-15.5); LYMPH # 2.1 10^3/uL (1.5-5.0); LYMPH % 12.6 % (24.0-44.0); MEAN CORPUSCULAR HEMOGLOBIN 30.3 pg (27.0-33.0); MEAN CORPUSCULAR HGB CONC 31.5 g/dl (32.0-36.5); MEAN CORPUSCULAR VOLUME 96.4 fl (80.0-96.0); MONO # 1.4 10^3/uL (0.0-0.8); MONO % 8.4 % (2.0-8.0); NEUTROPHILS # 12.4 10^3/uL (1.5-8.5); PLATELET COUNT, AUTOMATED 379 10^3/uL (150-450); RED BLOOD COUNT 3.89 10^6/uL (4.00-5.40); WHITE BLOOD COUNT 16.6 10^3/uL (4.0-10.0)
[2022-07-17 06:00] VITALS: BP 139/66
[2022-07-17 06:21] LABS: BLOOD UREA NITROGEN 16 MG/DL (9-23); CALCIUM LEVEL 8.4 MG/DL (8.3-10.6); CARBON DIOXIDE LEVEL 27 MMOL/L (20-31); CHLORIDE LEVEL 104 MMOL/L (98-107); CREATININE FOR GFR 0.87 MG/DL (0.55-1.30); GLOMERULAR FILTRATION RATE > 60.0 (>39); GLUCOSE, FASTING 115 MG/DL (74-106); POTASSIUM SERUM 4.2 MMOL/L (3.5-5.1); SODIUM LEVEL 139 MMOL/L (136-145)
[2022-07-17] MEDS: INSULIN LISPRO (NovoLOG) PER UNIT SC SCH ×2 (07:30→12:57)
[2022-07-17] MEDS: PANTOPRAZOLE 40MG TAB (PROTONIX) PO SCH (09:03)
[2022-07-17 09:04] VITALS: BP 139/66
[2022-07-17] MEDS: APIXABAN 5 MG TAB (ELIQUIS) PO SCH (09:04)
[2022-07-17] MEDS: METOPROLOL SUCC (TopROL XL) 50MG **XL** TAB PO SCH (09:04)
[2022-07-17] MEDS: DULoxetine 30MG CAPSULE (CYMBALTA) PO SCH (09:04)
[2022-07-17] MEDS ORDERED: CEFD300C41 PO (11:10)
[2022-07-17 14:00] VITALS: BP 144/69
[2022-07-17] MEDS ORDERED: cefTRIAXone SOD 1 GM in D5W MINI-BAG PLUS 50 ML IV ONE (15:00)
== END 2022-07-17 15:26 | disposition home or self-care (01) | DRG 872 ==
LOC: M ED 17:41 → M ED INP 22:34 → ENRESERV 07-16 13:01 → M MSPAV 07-16 14:27
PROVIDERS: ADMIT Internal Medicine; ATTEND Internal Medicine Nephrology
DX: A41.9 Sepsis, unspecified organism (principal); I50.32 Chronic diastolic (congestive) heart failure; N39.0 Urinary tract infection, site not specified; I48.0 Paroxysmal atrial fibrillation; I11.0 Hypertensive heart disease with heart failure; I25.10 Atherosclerotic heart disease of native coronary artery without angina pectoris; K21.9 Gastro-esophageal reflux disease without esophagitis; Z95.2 Presence of prosthetic heart valve; M19.90 Unspecified osteoarthritis, unspecified site; E86.0 Dehydration; E78.00 Pure hypercholesterolemia, unspecified; J20.9 Acute bronchitis, unspecified; Z87.442 Personal history of urinary calculi; Z91.030 Bee allergy status; Z79.899 Other long term (current) drug therapy; Z88.8 Allergy status to other drugs, medicaments and biological substances; Z79.01 Long term (current) use of anticoagulants; F17.210 Nicotine dependence, cigarettes, uncomplicated; B96.29 Other Escherichia coli [E. coli] as the cause of diseases classified elsewhere

== ENCOUNTER → 2022-08-05 | Outpatient (CLI) | payer OTHER ==
[~2022-08-05] MED LIST changes: +AMLO25TA PO; +ATOR40TA75 PO; +CEFD300C41 PO; +DULO1CAP6 PO; +METO1TAB7 PO; +PANT40TA29 PO
[2022-08-05 17:20] LABS: APPEARANCE, URINE MANUAL HAZY (CLEAR); COLOR, URINE MANUAL DK YELLOW (YELLOW)
[2022-08-05 17:21] LABS: BILIRUBIN, URINE MANUAL 1+ (NEGATIVE); BLOOD URINE MANUAL NEGATIVE (NEGATIVE); GLUCOSE, URINE (UA) MANUAL NEGATIVE (NEGATIVE); KETONE, URINE MANUAL NEGATIVE (NEGATIVE); LEUKOCYTE ESTERASE, URINE MAN TRACE (NEGATIVE); NITRITE, URINE MANUAL NEGATIVE (NEGATIVE); PROTEIN, URINE MANUAL TRACE mg/dL (NEGATIVE); UROBILINOGEN, URINE MANUAL NORMAL (NORMAL)
[2022-08-05 17:45] LABS: ALBUMIN 2.9 G/DL (3.2-5.2); BILIRUBIN,TOTAL 0.9 MG/DL (0.3-1.2); CALCIUM LEVEL 9.1 MG/DL (8.3-10.6); CREATININE FOR GFR 1.32 MG/DL (0.55-1.30); GLOMERULAR FILTRATION RATE 41.7 (>39); POTASSIUM SERUM 4.7 MMOL/L (3.5-5.1)
[2022-08-05 17:46] LABS: BASO # 0.1 10^3/uL (0.0-0.2); BASO % 1.1 % (0.0-1.0); EOS # 0.5 10^3/uL (0.0-0.5); EOS % 5.2 % (0.0-3.0); HEMATOCRIT 42.1 % (36.0-47.0); LYMPH # 2.7 10^3/uL (1.5-5.0); LYMPH % 26.5 % (24.0-44.0); MEAN CORPUSCULAR HEMOGLOBIN 30.2 pg (27.0-33.0); MEAN CORPUSCULAR HGB CONC 30.9 g/dl (32.0-36.5); MEAN CORPUSCULAR VOLUME 97.7 fl (80.0-96.0); MONO % 9.4 % (2.0-8.0); NEUTROPHILS # 5.9 10^3/uL (1.5-8.5); NEUTROPHILS % 57.4 % (36.0-66.0); PLATELET COUNT, AUTOMATED 583 10^3/uL (150-450); RED BLOOD COUNT 4.31 10^6/uL (4.00-5.40); WHITE BLOOD COUNT 10.2 10^3/uL (4.0-10.0)
[2022-08-05 18:25] LABS: CALCIUM OXALATE CRYSTALS,URINE LARGE AMOUNT /hpf; SQUAMOUS EPITHELIAL CELL URINE MOD AMOUNT /hpf (SMALL AMT)
[2022-08-05 18:26] LABS: BACTERIA, URINE LARGE AMOUNT
== END ==
LOC: M PLALAB 14:47
PROVIDERS: ATTEND Physician Assistant
DX: A41.9 Sepsis, unspecified organism (principal); N39.0 Urinary tract infection, site not specified

== ENCOUNTER → 2022-11-18 | Outpatient (CLI) | payer OTHER ==
[2022-11-18 12:16] LABS: CHOLESTEROL RISK RATIO 2.72 (<5); HDL CHOLESTEROL 56.2 MG/DL (>40); LDL CHOLESTEROL 80.6 MG/DL (<100); NON-HDL-C 96.8 MG/DL
== END ==
LOC: M PLALAB 08:31
PROVIDERS: ATTEND Nurse Practitioner Family
DX: E78.5 Hyperlipidemia, unspecified (principal)

== ENCOUNTER → 2022-11-18 | Outpatient (CLI) | payer OTHER | LOC: M RAD 08:51 | PROVIDERS: ATTEND Nurse Practitioner Family | DX: I71.40 Abdominal aortic aneurysm, without rupture, unspecified (principal); E78.5 Hyperlipidemia, unspecified ==

== ENCOUNTER → 2023-04-08 | Outpatient (CLI) | payer OTHER ==
[~2023-04-08] MED LIST changes: +BUPR150T12; +HYDR-3713 PO; +MIRA3350 PO
[2023-04-08 11:14] LABS: BASO # 0.1 10^3/uL (0.0-0.2); BASO % 0.7 % (0.0-1.0); EOS # 0.2 10^3/uL (0.0-0.5); EOS % 2.2 % (0.0-3.0); HEMATOCRIT 42.7 % (36.0-47.0); HEMOGLOBIN 13.8 g/dl (12.0-15.5); LYMPH % 18.1 % (24.0-44.0); MEAN CORPUSCULAR HEMOGLOBIN 31.5 pg (27.0-33.0); MEAN CORPUSCULAR HGB CONC 32.3 g/dl (32.0-36.5); MEAN CORPUSCULAR VOLUME 97.5 fl (80.0-96.0); MONO # 0.8 10^3/uL (0.0-0.8); MONO % 7.4 % (2.0-8.0); NEUTROPHILS # 7.9 10^3/uL (1.5-8.5); NEUTROPHILS % 70.8 % (36.0-66.0); PLATELET COUNT, AUTOMATED 398 10^3/uL (150-450); RED BLOOD COUNT 4.38 10^6/uL (4.00-5.40); WHITE BLOOD COUNT 11.1 10^3/uL (4.0-10.0)
[2023-04-08 11:28] LABS: HEMOGLOBIN A1c 6.4 % (4.0-6.0)
[2023-04-08 11:56] LABS: FREE T4 1.36 NG/DL (0.89-1.76)
[2023-04-08 11:57] LABS: THYROID STIMULATING HORMONE 3.137 uIU/ML (0.55-4.78)
[2023-04-08 11:59] LABS: ALBUMIN 3.1 G/DL (3.2-5.2); BILIRUBIN,TOTAL 0.7 MG/DL (0.3-1.2); CALCIUM LEVEL 8.9 MG/DL (8.3-10.6); CHOLESTEROL RISK RATIO 2.51 (<5); CREATININE FOR GFR 1.63 MG/DL (0.55-1.30); GLOMERULAR FILTRATION RATE 32.6 (>39); HDL CHOLESTEROL 57.2 MG/DL (>40); LDL CHOLESTEROL 72.2 MG/DL (<100); NON-HDL-C 86.8 MG/DL; POTASSIUM SERUM 4.6 MMOL/L (3.5-5.1); TOTAL PROTEIN 6.3 G/DL (5.7-8.2)
== END ==
LOC: M PLALAB 08:38
PROVIDERS: ATTEND Physician Assistant
DX: I25.10 Atherosclerotic heart disease of native coronary artery without angina pectoris (principal); I10 Essential (primary) hypertension; F34.1 Dysthymic disorder; E78.00 Pure hypercholesterolemia, unspecified; Z79.899 Other long term (current) drug therapy

== ENCOUNTER → 2023-05-19 | Outpatient (CLI) | payer OTHER ==
[~2023-05-19] MED LIST changes: -CEFD300C41 PO; +CEFD300C42 PO
[2023-05-19 14:24] LABS: BASO # 0.1 10^3/uL (0.0-0.2); BASO % 0.9 % (0.0-1.0); EOS # 0.2 10^3/uL (0.0-0.5); EOS % 1.7 % (0.0-3.0); HEMATOCRIT 44.9 % (36.0-47.0); HEMOGLOBIN 14.4 g/dl (12.0-15.5); LYMPH # 0.8 10^3/uL (1.5-5.0); LYMPH % 7.4 % (24.0-44.0); MEAN CORPUSCULAR HEMOGLOBIN 31.8 pg (27.0-33.0); MEAN CORPUSCULAR HGB CONC 32.1 g/dl (32.0-36.5); MEAN CORPUSCULAR VOLUME 99.1 fl (80.0-96.0); MONO # 0.7 10^3/uL (0.0-0.8); MONO % 6.7 % (2.0-8.0); NEUTROPHILS # 8.7 10^3/uL (1.5-8.5); NEUTROPHILS % 82.9 % (36.0-66.0); PLATELET COUNT, AUTOMATED 369 10^3/uL (150-450); RED BLOOD COUNT 4.53 10^6/uL (4.00-5.40); WHITE BLOOD COUNT 10.5 10^3/uL (4.0-10.0)
[2023-05-19 14:43] LABS: ERYTHROCYTE SEDIMENTATION RATE 27 mm/hr (0-30)
== END ==
LOC: M PLALAB 11:28
PROVIDERS: ATTEND Orthopaedic Surgery
DX: M70.61 Trochanteric bursitis, right hip (principal); Z96.641 Presence of right artificial hip joint

== ENCOUNTER → 2023-05-19 | Outpatient (CLI) | payer OTHER ==
[2023-05-19 13:30] LABS: BASO # 0.1 10^3/uL (0.0-0.2); BASO % 1.1 % (0.0-1.0); EOS # 0.2 10^3/uL (0.0-0.5); EOS % 2.2 % (0.0-3.0); HEMATOCRIT 45.4 % (36.0-47.0); HEMOGLOBIN 14.5 g/dl (12.0-15.5); LYMPH # 0.8 10^3/uL (1.5-5.0); LYMPH % 7.4 % (24.0-44.0); MEAN CORPUSCULAR HEMOGLOBIN 31.2 pg (27.0-33.0); MEAN CORPUSCULAR HGB CONC 31.9 g/dl (32.0-36.5); MEAN CORPUSCULAR VOLUME 97.6 fl (80.0-96.0); MONO # 0.6 10^3/uL (0.0-0.8); MONO % 5.7 % (2.0-8.0); PLATELET COUNT, AUTOMATED 389 10^3/uL (150-450); RED BLOOD COUNT 4.65 10^6/uL (4.00-5.40); WHITE BLOOD COUNT 10.9 10^3/uL (4.0-10.0)
[2023-05-19 13:59] LABS: ALBUMIN 3.3 G/DL (3.2-5.2); CALCIUM LEVEL 9.3 MG/DL (8.3-10.6); CREATININE FOR GFR 1.28 MG/DL (0.55-1.30); PHOSPHORUS LEVEL 3.5 MG/DL (2.4-5.1); POTASSIUM SERUM 4.7 MMOL/L (3.5-5.1)
== END ==
LOC: M PLALAB 10:21
PROVIDERS: ATTEND Physician Assistant
DX: N18.31 Chronic kidney disease, stage 3a (principal); D72.829 Elevated white blood cell count, unspecified; M70.61 Trochanteric bursitis, right hip; Z96.641 Presence of right artificial hip joint

== ENCOUNTER → 2023-06-18 | Outpatient (CLI) | payer OTHER ==
[~2023-06-18] MED LIST changes: +ISOVUE-300 61% 100ML VIAL As Ordered ONE; +LIDOCAINE 1% MDV 20ML VIAL As Ordered ONE; +TRIAMCINOLONE ACETONIDE SUSP 40MG/ML 1ML VIAL As Ordered ONE
== END ==
LOC: M RAD 14:31
PROVIDERS: ATTEND Orthopaedic Surgery
DX: M70.61 Trochanteric bursitis, right hip (principal); Z96.641 Presence of right artificial hip joint
CPT/HCPCS: 20610; 77002; J3301; Q9967

== ENCOUNTER → 2023-07-03 | Outpatient (CLI) | payer OTHER ==
[~2023-07-03] MED LIST changes: +CEFD1CAP9 PO; -CEFD300C42 PO; -ISOVUE-300 61% 100ML VIAL As Ordered ONE; -LIDOCAINE 1% MDV 20ML VIAL As Ordered ONE; -TRIAMCINOLONE ACETONIDE SUSP 40MG/ML 1ML VIAL As Ordered ONE
== END ==
LOC: M RAD 13:58
PROVIDERS: ATTEND Orthopaedic Surgery
DX: M79.661 Pain in right lower leg (principal)

== ENCOUNTER → 2023-07-22 | Outpatient (CLI) | payer OTHER | LOC: M PLAIMG 10:24 | PROVIDERS: ATTEND Physician Assistant | DX: R05.1 Acute cough (principal) ==

== ENCOUNTER → 2023-09-30 | Outpatient (CLI) | payer OTHER ==
[2023-09-30 14:53] LABS: BASO # 0.1 10^3/uL (0.0-0.2); BASO % 0.8 % (0.0-1.0); EOS # 0.4 10^3/uL (0.0-0.5); HEMATOCRIT 42.7 % (36.0-47.0); HEMOGLOBIN 13.4 g/dl (12.0-15.5); LYMPH # 1.8 10^3/uL (1.5-5.0); LYMPH % 15.5 % (24.0-44.0); MEAN CORPUSCULAR HEMOGLOBIN 31.5 pg (27.0-33.0); MEAN CORPUSCULAR HGB CONC 31.4 g/dl (32.0-36.5); MEAN CORPUSCULAR VOLUME 100.5 fl (80.0-96.0); MONO # 0.9 10^3/uL (0.0-0.8); MONO % 7.3 % (2.0-8.0); NEUTROPHILS # 8.7 10^3/uL (1.5-8.5); NEUTROPHILS % 72.9 % (36.0-66.0); PLATELET COUNT, AUTOMATED 455 10^3/uL (150-450); RED BLOOD COUNT 4.25 10^6/uL (4.00-5.40); WHITE BLOOD COUNT 11.9 10^3/uL (4.0-10.0)
[2023-09-30 15:13] LABS: HEMOGLOBIN A1c 6.2 % (4.0-6.0)
[2023-09-30 15:18] LABS: ALKALINE PHOSPHATASE 115 U/L (46-116); ALT/SGPT 18 U/L (7.0-40); AST/SGOT < 8 U/L (<34); BILIRUBIN,TOTAL 0.8 MG/DL (0.3-1.2); BLOOD UREA NITROGEN 19 MG/DL (9-23); CALCIUM LEVEL 8.5 MG/DL (8.3-10.6); CARBON DIOXIDE LEVEL 30 MMOL/L (20-31); CHLORIDE LEVEL 106 MMOL/L (98-107); CREATININE FOR GFR 1.14 MG/DL (0.55-1.30); GLOMERULAR FILTRATION RATE 49.2 (>39); GLUCOSE, FASTING 115 MG/DL (74-106); POTASSIUM SERUM 4.5 MMOL/L (3.5-5.1); SODIUM LEVEL 139 MMOL/L (136-145); TOTAL PROTEIN 6.2 G/DL (5.7-8.2)
== END ==
LOC: M PLAIMG 10:58
PROVIDERS: ATTEND Physician Assistant
DX: R05.1 Acute cough (principal); I48.0 Paroxysmal atrial fibrillation; I12.9 Hypertensive chronic kidney disease with stage 1 through stage 4 chronic kidney disease, or unspecified chronic kidney disease; E78.00 Pure hypercholesterolemia, unspecified; R73.01 Impaired fasting glucose; N18.31 Chronic kidney disease, stage 3a; D72.829 Elevated white blood cell count, unspecified

== ENCOUNTER → 2023-10-21 | Outpatient (CLI) | payer OTHER | LOC: M WHC 11:00 | PROVIDERS: ATTEND Physician Assistant | DX: Z12.31 Encounter for screening mammogram for malignant neoplasm of breast (principal); Z13.820 Encounter for screening for osteoporosis; M85.851 Other specified disorders of bone density and structure, right thigh; M85.852 Other specified disorders of bone density and structure, left thigh ==

== ENCOUNTER → 2023-12-08 | Outpatient (CLI) | payer OTHER | LOC: M PLAIMG 07:29 | PROVIDERS: ATTEND Orthopaedic Surgery | DX: M25.551 Pain in right hip (principal) ==

== ENCOUNTER → 2023-12-08 | Outpatient (CLI) | payer OTHER ==
[2023-12-08 10:01] LABS: BASO # 0.1 10^3/uL (0.0-0.2); BASO % 0.6 % (0.0-1.0); EOS # 0.4 10^3/uL (0.0-0.5); EOS % 3.6 % (0.0-3.0); HEMOGLOBIN 13.4 g/dl (12.0-15.5); LYMPH # 1.6 10^3/uL (1.5-5.0); MEAN CORPUSCULAR HEMOGLOBIN 31.1 pg (27.0-33.0); MEAN CORPUSCULAR HGB CONC 32.7 g/dl (32.0-36.5); MEAN CORPUSCULAR VOLUME 95.1 fl (80.0-96.0); MONO # 0.8 10^3/uL (0.0-0.8); MONO % 8.2 % (2.0-8.0); NEUTROPHILS # 7.2 10^3/uL (1.5-8.5); NEUTROPHILS % 71.2 % (36.0-66.0); PLATELET COUNT, AUTOMATED 359 10^3/uL (150-450); RED BLOOD COUNT 4.31 10^6/uL (4.00-5.40); WHITE BLOOD COUNT 10.1 10^3/uL (4.0-10.0)
== END ==
LOC: M PLALAB 08:46
PROVIDERS: ATTEND Physician Assistant
DX: R79.89 Other specified abnormal findings of blood chemistry (principal)

== ENCOUNTER → 2024-01-08 | Outpatient (CLI) | payer OTHER ==
[2024-01-08 14:37] LABS: CALCIUM LEVEL 9.6 MG/DL (8.3-10.6); CREATININE FOR GFR 1.16 MG/DL (0.55-1.30); GLOMERULAR FILTRATION RATE 48.2 (>39)
== END ==
LOC: M PLALAB 09:19
PROVIDERS: ATTEND Family Medicine
DX: Z01.810 Encounter for preprocedural cardiovascular examination (principal); M25.551 Pain in right hip

== ENCOUNTER → 2024-04-07 | Outpatient (CLI) | payer OTHER ==
[2024-04-07 13:47] LABS: BASO # 0.1 10^3/uL (0.0-0.2); BASO % 1.4 % (0.0-1.0); EOS # 0.6 10^3/uL (0.0-0.5); HEMATOCRIT 45.5 % (36.0-47.0); HEMOGLOBIN 14.6 g/dl (12.0-15.5); LYMPH # 2.4 10^3/uL (1.5-5.0); LYMPH % 23.4 % (24.0-44.0); MEAN CORPUSCULAR HEMOGLOBIN 31.5 pg (27.0-33.0); MEAN CORPUSCULAR HGB CONC 32.1 g/dl (32.0-36.5); MEAN CORPUSCULAR VOLUME 98.1 fl (80.0-96.0); MONO # 0.9 10^3/uL (0.0-0.8); NEUTROPHILS # 6.1 10^3/uL (1.5-8.5); NEUTROPHILS % 59.9 % (36.0-66.0); PLATELET COUNT, AUTOMATED 362 10^3/uL (150-450); RED BLOOD COUNT 4.64 10^6/uL (4.00-5.40); WHITE BLOOD COUNT 10.1 10^3/uL (4.0-10.0)
[2024-04-07 14:09] LABS: ALBUMIN 3.5 G/DL (3.2-5.2); BILIRUBIN,TOTAL 0.7 MG/DL (0.3-1.2); CALCIUM LEVEL 9.6 MG/DL (8.3-10.6); CREATININE FOR GFR 1.2 MG/DL (0.55-1.30); GLOMERULAR FILTRATION RATE 46.3 (>39); POTASSIUM SERUM 4.3 MMOL/L (3.5-5.1); TOTAL PROTEIN 6.8 G/DL (5.7-8.2)
== END ==
LOC: M PLALAB 10:51
PROVIDERS: ATTEND Physician Assistant
DX: F34.1 Dysthymic disorder (principal); N18.31 Chronic kidney disease, stage 3a; I10 Essential (primary) hypertension; R73.01 Impaired fasting glucose

== ENCOUNTER → 2024-09-20 | Outpatient (CLI) | payer MEDICARE ==
[~2024-09-20] MED LIST changes: +E-Z-GAS II EFFERVESCENT PACKET (SODIUM BICARB./CITRIC ACID/SIMETHICONE) As Ordered ONE; +E-Z-HD 98% w/w 340GM SUSP BTL As Ordered ONE; +E-Z-PAQUE 96% w/w SUSP 176GM BTL As Ordered ONE
== END ==
LOC: M RAD 08:40
PROVIDERS: ATTEND Physician Assistant Medical
DX: R13.10 Dysphagia, unspecified (principal); K44.9 Diaphragmatic hernia without obstruction or gangrene; Q39.4 Esophageal web

== ENCOUNTER → 2024-11-25 | Outpatient (REF) | payer MEDICARE ==
[~2024-11-25] MED LIST changes: -E-Z-GAS II EFFERVESCENT PACKET (SODIUM BICARB./CITRIC ACID/SIMETHICONE) As Ordered ONE; -E-Z-HD 98% w/w 340GM SUSP BTL As Ordered ONE; -E-Z-PAQUE 96% w/w SUSP 176GM BTL As Ordered ONE; -FLOM0.4C39 PO; +TAMS-18 PO
== END ==
LOC: M SFHCPLAZ 17:37
PROVIDERS: ATTEND Family Medicine
DX: Z00.00 Encounter for general adult medical examination without abnormal findings (principal); R63.4 Abnormal weight loss; R73.03 Prediabetes; E78.00 Pure hypercholesterolemia, unspecified

== ENCOUNTER → 2024-12-06 | Outpatient (CLI) | payer MEDICARE ==
[2024-12-06 13:32] LABS: BASO # 0.2 10^3/uL (0.0-0.2); BASO % 1.4 % (0.0-1.0); EOS # 0.6 10^3/uL (0.0-0.5); EOS % 5.2 % (0.0-3.0); HEMATOCRIT 44.9 % (36.0-47.0); HEMOGLOBIN 14.4 g/dl (12.0-15.5); LYMPH # 2.4 10^3/uL (1.5-5.0); LYMPH % 22.8 % (24.0-44.0); MEAN CORPUSCULAR HEMOGLOBIN 31.2 pg (27.0-33.0); MEAN CORPUSCULAR HGB CONC 32.1 g/dl (32.0-36.5); MEAN CORPUSCULAR VOLUME 97.2 fl (80.0-96.0); MONO # 0.9 10^3/uL (0.0-0.8); NEUTROPHILS # 6.7 10^3/uL (1.5-8.5); NEUTROPHILS % 62.3 % (36.0-66.0); PLATELET COUNT, AUTOMATED 380 10^3/uL (150-450); RED BLOOD COUNT 4.62 10^6/uL (4.00-5.40); WHITE BLOOD COUNT 10.7 10^3/uL (4.0-10.0)
[2024-12-06 13:35] LABS: ALBUMIN 3.5 G/DL (3.2-5.2); BILIRUBIN,TOTAL 0.8 MG/DL (0.3-1.2); CALCIUM LEVEL 9.8 MG/DL (8.3-10.6); CHOLESTEROL RISK RATIO 3.3 (<5); CREATININE FOR GFR 0.96 MG/DL (0.55-1.30); GLOMERULAR FILTRATION RATE 60.6 (>39); HDL CHOLESTEROL 50.9 MG/DL (>40); LDL CHOLESTEROL 98.7 MG/DL (<100); NON-HDL-C 117.1 MG/DL; POTASSIUM SERUM 4.7 MMOL/L (3.5-5.1); TOTAL PROTEIN 7.1 G/DL (5.7-8.2)
[2024-12-06 13:36] LABS: FREE T4 1.18 NG/DL (0.89-1.76); THYROID STIMULATING HORMONE 2.088 uIU/ML (0.55-4.78)
[2024-12-06 13:53] LABS: HEMOGLOBIN A1c 5.7 % (4.0-6.0)
== END ==
LOC: M PLALAB 09:58
PROVIDERS: ATTEND Student in an Organized Health Care Education/Training Program
DX: Z00.00 Encounter for general adult medical examination without abnormal findings (principal); R63.4 Abnormal weight loss; R73.03 Prediabetes; E78.00 Pure hypercholesterolemia, unspecified

== ENCOUNTER → 2025-03-07 | Outpatient (REF) | payer MEDICARE | LOC: M SFHCPLAZ 14:51 | PROVIDERS: ATTEND Family Medicine | DX: Z53.9 Procedure and treatment not carried out, unspecified reason (principal) ==

== ENCOUNTER → 2025-03-07 | Outpatient (CLI) | payer MEDICARE ==
[2025-03-07 16:58] LABS: PLATELET COUNT, AUTOMATED 339 10^3/uL (150-450)
[2025-03-07 17:57] LABS: ALT/SGPT 23.0 U/L (7.0-40); AST/SGOT 29.0 U/L (<34); CALCIUM LEVEL 9.2 MG/DL (8.3-10.6); CARBON DIOXIDE LEVEL 31.0 MMOL/L (20-31); CHLORIDE LEVEL 106.0 MMOL/L (98-107); CHOLESTEROL LEVEL 136.0 MG/DL (<200); CHOLESTEROL RISK RATIO 3.02 (<5); CREATININE FOR GFR 1.03 MG/DL (0.55-1.30); GLOMERULAR FILTRATION RATE 55.7 (>39); LDL CHOLESTEROL 73.1 MG/DL (<100); NON-HDL-C 91.1 MG/DL; POTASSIUM SERUM 4.1 MMOL/L (3.5-5.1); SODIUM LEVEL 145.0 MMOL/L (136-145); TRIGLYCERIDES LEVEL 90.0 MG/DL (<150)
[2025-03-07 18:07] LABS: ESTIMATED AVERAGE GLUCOSE 126.0 MG/DL (60-110)
== END ==
LOC: M PLALAB 15:39
PROVIDERS: ATTEND Family Medicine
DX: E78.00 Pure hypercholesterolemia, unspecified (principal); I10 Essential (primary) hypertension; R73.01 Impaired fasting glucose